=== PATIENT | female | born 1965 | race Caucasian/White ===

== ENCOUNTER 2017-01-15 20:24 | Emergency (ER) | payer MEDICAID ==
[2017-01-15] MEDS ORDERED: Sodium Chloride 0.9% 1,000 ML IV SCH (21:15)
[2017-01-15] MEDS ORDERED: Ondansetron 4 MG/2 ML SDV IVPUSH ONE (21:18)
[2017-01-15] MEDS ORDERED: Morphine 4 MG/ML Syringe IVPUSH ONE ×2 (21:18→22:45)
--- NOTE | 2017-01-15 21:21 | EDM.PDOC ---
ED HPI GENERAL MEDICAL PROBLEM - General Chief Complaint: Abdominal Pain Stated Complaint: PAIN Time Seen by Provider: 01/15/17 21:15 Source of Information: Reports: Patient History Limitations: Reports: No Limitations - History of Present Illness INITIAL COMMENTS - FREE TEXT/NARRATIVE: Zuleyma is a 51-year-old female with a history of a CVA with right-sided hemiparesis and expressive aphasia issues who presents to the emergency department today with complaints of left lower quadrant pain for the last 2 days. Patient denies any associative symptoms, patient denies any known history of diverticulitis or kidney stones. Patient has not taken anything for the pain. Patient denies any dysuria. Patient reports she has had normal bowel movements with no blood in her stool. Duration: Day(s): (2) Left Abdomen Pain Score (Numeric/FACES): 8 - Related Data Allergies Allergy/AdvReac Type Severity Reaction Status Date / Time aspirin Allergy Cannot Verified 01/15/17 21:30 Remember codeine Allergy Cannot Verified 01/15/17 21:30 Remember latex Allergy Cannot Verified 01/15/17 21:30 Remember Home Meds: Home Meds Carvedilol [Coreg] 3.125 mg PO BID 10/13/13 [History] Clopidogrel [Plavix] 75 mg PO DAILY 10/13/13 [History] Levothyroxine [Synthroid] 50 mcg PO ACBRK 10/13/13 [History] Lisinopril 2.5 mg PO DAILY 10/13/13 [History] atorvaSTATin [Lipitor] 20 mg PO BEDTIME 10/13/13 [History] Fexofenadine HCl [Daphnie Allergy] 180 mg PO DAILY 08/25/15 [History] metFORMIN [Glucophage] 500 mg PO BIDMEALS 08/25/15 [History] Past Medical History HEENT History: Reports: Allergic Rhinitis, Impaired Vision Cardiovascular History: Reports: Heart Failure, High Cholesterol, Hypertension, Prior Cardiac Arrest Respiratory History: Reports: Sleep Apnea Gastrointestinal History: Reports: Cholelithiasis 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, , Spontaneous Neurological History: Reports: CVA, Speech Problems Endocrine/Metabolic History: Reports: Diabetes, Type II, Obesity/BMI 30+ Hematologic History: Reports: Blood Transfusion(s) - Infectious Disease History Infectious Disease History: Reports: Chicken Pox, Measles, Mumps, Shingles - Past Surgical History GI Surgical History: Reports: Cholecystectomy, EGD, Hernia, Abdominal, Hernia, Inguinal Female Surgical History: Reports: Breast Biopsy, D&C, Hysterectomy, Oophorectomy Social & Family History - Tobacco Use Smoking Status *Q: Former Smoker Years of Tobacco use: 23 Packs/Tins Daily: 1 Used Tobacco, but Quit: Yes Month Tobacco Last Used: 01/2012 Second Hand Smoke Exposure: No - Caffeine Use Caffeine Use: Reports: Coffee - Alcohol Use Days Per Week of Alcohol Use: 0 - Recreational Drug Use Recreational Drug Use: No ED ROS GENERAL - Review of Systems Review Of Systems: ROS reveals no pertinent complaints other than HPI. ED EXAM, GI/ABD - Physical Exam Exam: See Below Exam Limited By: Language Barrier General Appearance: Alert, WD/WN, No Apparent Distress Respiratory/Chest: No Respiratory Distress, Lungs Clear Cardiovascular: Normal Peripheral Pulses, Regular Rate, Rhythm, No Murmur GI/Abdominal Exam: Normal Bowel Sounds, Soft, Other (Tenderness on exam to left lower quadrant, no guarding, no rebound) Back Exam: Normal Inspection Extremities: Normal Inspection Neurological: Alert, Oriented Psychiatric: Normal Affect, Normal Mood Skin Exam: Warm, Dry, Intact Course - Vital Signs Last Recorded V/S: Last Vital Signs Temp 37.3 C 01/15/17 20:57 Pulse 102 H 01/15/17 22:24 Resp 18 01/15/17 22:24 BP 127/68 01/15/17 22:24 Pulse Ox 94 L 01/15/17 22:24 Zuleyma is a 51-year-old female with a history of CVA with right-sided hemiparesis and expressive aphasia who presents to the emergency Department today with complaints of left lower quadrant pain for the last 2 days. Please refer to history of present illness and focused exam. Differentials include a ureteral stone versus diverticulitis. Peripheral IV was established and patient was given 1 L normal saline, she was given Zofran for nausea and morphine for pain. Blood work was evaluated including a CBC, CMP, lipase, urinalysis. CBC returns unremarkable. CMP within normal limits, elevated glucose of 142. Lipase is normal UA returns with 20-30 WBC and Nitrite consistent with UTI, culture is pending. Patient was given IV zofran and morphine with one liter of NS with improvement in her symptoms. CT scan obtained to evaluate for diverticulitis and is pending. AT this time I will turn patient's care over to Officer pending CT scan results. Patient will be discharged with appropriate antibiotics to include treatment for UTI. - Orders/Labs/Meds Orders: Active Orders 24 hr Category Date Time Status Peripheral IV Care [RC] . DIRECTED Care 01/15/17 21:09 Active Abdomen Pelvis w Cont [CT] Stat Exams 01/15/17 21:24 Taken CULTURE URINE [RM] Stat Lab 01/15/17 21:30 Received Iopamidol [Isovue-300 (61%)] Med 01/15/17 22:00 Active 100 ml IV . DIRECTED Morphine Med 01/15/17 22:45 Once 4 mg IVPUSH ONETIME ONE Sodium Chloride 0.9% [Normal Saline] 1,000 ml Med 01/15/17 21:15 Active IV ASDIRECTED Sodium Chloride 0.9% [Normal Saline] 70 ml Med 01/15/17 22:00 Active IV ASDIRECTED Sodium Chloride 0.9% [Saline Flush] Med 01/15/17 21:09 Active 10 ml FLUSH ASDIRECTED PRN Peripheral IV Insertion Adult [OM.PC] Routine Oth 01/15/17 21:09 Ordered Medication Orders Sodium Chloride (Normal Saline) 1,000 mls @ 999 mls/hr IV ASDIRECTED [facility] Last Admin: 01/15/17 21:38 Dose: 999 mls/hr Sodium Chloride (Normal Saline) 70 mls @ 3 mls/sec IV ASDIRECTED [facility] Last Admin: 01/15/17 22:11 Dose: 3 mls/sec Iopamidol (Isovue-300 (61%)) 100 ml IV . DIRECTED KYE Last Admin: 01/15/17 22:11 Dose: 100 ml Sodium Chloride (Saline Flush) 10 ml FLUSH ASDIRECTED PRN PRN Reason: Keep Vein Open Last Admin: 01/15/17 22:11 Dose: 10 ml Admin: 01/15/17 21:38 Dose: 10 ml Labs: Laboratory Tests 01/15/17 01/15/17 01/15/17 Range/Units 21:14 21:23 21:23 WBC 10.7 (4.5-11.0) K/uL RBC 4.83 (3.30-5.50) M/uL Hgb 13.0 (12.0-15.0) g/dL Hct 39.9 (36.0-48.0) % MCV 83 (80-98) fL MCH 27 (27-31) pg MCHC 33 (32-36) % Plt Count 254 (150-400) K/uL Neut % (Auto) 59 (36-66) % Lymph % (Auto) 31 (24-44) % [place] % (Auto) 7 H (2-6) % Eos % (Auto) 2 (2-4) % Baso % (Auto) 1 (0-1) % Sodium 140 (140-148) mmol/L Potassium 3.8 (3.6-5.2) mmol/L Chloride 106 (100-108) mmol/L Carbon Dioxide 31 (21-32) mmol/L Anion Gap 2.8 L (5.0-14.0) mmol/L BUN 13 (7-18) mg/dL Creatinine 0.9 (0.6-1.0) mg/dL Est Cr Clr Drug Dosing 61.17 mL/min Estimated GFR (MDRD) > 60 (>60) Glucose 142 H (74-106) mg/dL Calcium 9.0 (8.5-10.1) mg/dL Total Bilirubin 0.4 (0.2-1.0) mg/dL AST 22 (15-37) U/L ALT 42 (12-78) U/L Alkaline Phosphatase 113 (46-116) U/L Total Protein 7.7 (6.4-8.2) g/dL Albumin 3.4 (3.4-5.0) g/dL Globulin 4.3 H (2.3-3.5) g/dL Albumin/Globulin Ratio 0.8 L (1.2-2.2) Lipase 328 (73-393) U/L Urine Color Yellow Urine Appearance Slightly cloudy Urine pH 5.0 (4.5-8.0) Ur Specific [place] 1.020 (1.008-1.030) Urine Protein Negative (NEGATIVE) mg/dL Urine Glucose (UA) Normal (NEGATIVE) mg/dL Urine Ketones Negative (NEGATIVE) mg/dL Urine Occult Blood Large (NEGATIVE) Urine Nitrite Positive H (NEGATIVE) Urine Bilirubin Negative (NEGATIVE) Urine Urobilinogen Normal (NORMAL) mg/dL Ur Leukocyte Esterase Negative (NEGATIVE) Urine RBC 0-5 (0-5) Urine WBC 20-30 H (0-5) Ur Epithelial Cells Few Amorphous Sediment Not seen Urine Bacteria Many Urine Mucus Not seen Meds: Medications Generic Name Dose Route Start Last Admin Trade Name Freq PRN Reason Stop Dose Admin Sodium Chloride 1,000 mls @ 999 mls/hr 01/15/17 21:15 01/15/17 21:38 Normal Saline IV 999 mls/hr ASDIRECTED KYE Administration Sodium Chloride 70 mls @ 3 mls/sec 01/15/17 22:00 01/15/17 22:11 Normal Saline IV 3 mls/sec ASDIRECTED KYE Administration Iopamidol 100 ml 01/15/17 22:00 01/15/17 22:11 Isovue-300 (61%) IV 100 ml . DIRECTED KYE Administration Sodium Chloride 10 ml 01/15/17 21:09 01/15/17 22:11 Saline Flush FLUSH 10 ml ASDIRECTED PRN Administration Keep Vein Open Discontinued Medications Generic Name Dose Route Start Last Admin Trade Name Freq PRN Reason Stop Dose Admin Morphine Sulfate 4 mg 01/15/17 21:18 01/15/17 21:42 Morphine IVPUSH 01/15/17 21:19 4 mg ONETIME ONE Administration Ondansetron HCl 4 mg 01/15/17 21:18 01/15/17 21:45 Zofran IVPUSH 01/15/17 21:19 4 mg ONETIME ONE Administration Departure - Departure Time of Disposition: 23:30 Disposition: Still A Patient 30 Condition: Good Clinical Impression: Urinary tract infection Qualifiers: Urinary tract infection type: acute cystitis Hematuria presence: without hematuria Qualified Code(s): N30.00 - Acute cystitis without hematuria - Discharge Information Referrals: Keith Maravilla PA-C [Primary Care Provider] - Forms: ED Department Discharge - My Orders Last 24 Hours: My Active Orders 01/15/17 21:09 Peripheral IV Care [RC] . DIRECTED Sodium Chloride 0.9% [Saline Flush] 10 ml FLUSH ASDIRECTED PRN Peripheral IV Insertion Adult [OM.PC] Routine 01/15/17 21:15 Sodium Chloride 0.9% [Normal Saline] 1,000 ml IV ASDIRECTED 01/15/17 21:24 Abdomen Pelvis w Cont [CT] Stat 01/15/17 21:30 CULTURE URINE [RM] Stat 01/15/17 22:00 Iopamidol [Isovue-300 (61%)] 100 ml IV . DIRECTED Sodium Chloride 0.9% [Normal Saline] 70 ml IV ASDIRECTED 01/15/17 22:45 Morphine 4 mg IVPUSH ONETIME ONE - Assessment/Plan Last 24 Hours: My Active Orders 01/15/17 21:09 Peripheral IV Care [RC] . DIRECTED Sodium Chloride 0.9% [Saline Flush] 10 ml FLUSH ASDIRECTED PRN Peripheral IV Insertion Adult [OM.PC] Routine 01/15/17 21:15 Sodium Chloride 0.9% [Normal Saline] 1,000 ml IV ASDIRECTED 01/15/17 21:24 Abdomen Pelvis w Cont [CT] Stat 01/15/17 21:30 CULTURE URINE [RM] Stat 01/15/17 22:00 Iopamidol [Isovue-300 (61%)] 100 ml IV . DIRECTED Sodium Chloride 0.9% [Normal Saline] 70 ml IV ASDIRECTED 01/15/17 22:45 Morphine 4 mg IVPUSH ONETIME ONE
[2017-01-15] MEDS: Sodium Chloride 0.9% 10 ML Syringe FLUSH PRN ×2 (21:38→22:11)
[2017-01-15] MEDS ORDERED: Iopamidol 612 MG/ML 100 ML Bottle IV SCH (22:00)
[2017-01-15] MEDS ORDERED: Ondansetron 4 MG Tab.DIS PO ONE (23:35)
[2017-01-16 00:23] VITALS: BP 107/73
== END 2017-01-16 00:20 | disposition home or self-care (01) ==
LOC: JP.ED 20:24
DX: N30.00 Acute cystitis without hematuria (principal); K63.89 Other specified diseases of intestine; I11.0 Hypertensive heart disease with heart failure; I50.9 Heart failure, unspecified; E78.00 Pure hypercholesterolemia, unspecified; E11.9 Type 2 diabetes mellitus without complications; I69.351 Hemiplegia and hemiparesis following cerebral infarction affecting right dominant side; I69.320 Aphasia following cerebral infarction; E66.9 Obesity, unspecified; Z68.34 Body mass index [BMI] 34.0-34.9, adult; Z90.49 Acquired absence of other specified parts of digestive tract; Z90.710 Acquired absence of both cervix and uterus; Z90.721 Acquired absence of ovaries, unilateral; Z87.891 Personal history of nicotine dependence; Z79.02 Long term (current) use of antithrombotics/antiplatelets; Z79.899 Other long term (current) drug therapy; Z88.5 Allergy status to narcotic agent; Z88.8 Allergy status to other drugs, medicaments and biological substances; Z91.040 Latex allergy status
CPT/HCPCS: 36415; 74177; 80053; 81001; 83690; 85025; 87086; 96361; 96374; 96375; 96376; 99284; A9270; J2270; J2405; J7030; J7040; J7050; Q9967; 87088; 87186

== ENCOUNTER 2017-06-17 13:22 | Observation (INO) | payer MEDICAID ==
[2017-06-17] MEDS ORDERED: Ondansetron 4 MG Tab.DIS PO ONE (14:06)
--- NOTE | 2017-06-17 14:12 | EDM.PDOC ---
ED HPI GENERAL MEDICAL PROBLEM - General Chief Complaint: Abdominal Pain Stated Complaint: PAIN Time Seen by Provider: 06/17/17 13:55 Source of Information: Reports: Patient, Family, Old Records, RN History Limitations: Reports: Other (hx of CVA, mentally handicapped since) - History of Present Illness INITIAL COMMENTS - FREE TEXT/NARRATIVE: 52 yo female presents with progressive low abdominal pain over the past couple of days. Pain increased with movement or coughing. No fever, mild nausea, no change in stools or urine. PHx of ? appendectomy and cholecystectomy(not a reliable historian). No self fx. Was here a few mos ago for appendagitis. 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) Abdominal Pain Score (Numeric/FACES): 8 - Related Data Allergies Allergy/AdvReac Type Severity Reaction Status Date / Time latex Allergy Cannot Verified 06/17/17 13:42 Remember aspirin AdvReac Mild Stomach Verified 06/18/17 09:49 Upset codeine AdvReac Mild Stomach Verified 06/18/17 10:05 Upset hydromorphone [From Dilaudid] AdvReac Nausea and Verified 06/18/17 10:05 Vomiting Home Meds: Home Meds Carvedilol [Coreg] 3.125 mg PO BID 10/13/13 [History] Clopidogrel [Plavix] 75 mg PO DAILY 10/13/13 [History] Levothyroxine [Synthroid] 50 mcg PO ACBRK 10/13/13 [History] Lisinopril 2.5 mg PO DAILY 10/13/13 [History] atorvaSTATin [Lipitor] 20 mg PO BEDTIME 10/13/13 [History] metFORMIN [Glucophage] 500 mg PO BIDMEALS 08/25/15 [History] Cephalexin 500 mg PO BID #6 capsule 06/19/17 [Rx] Past Medical History HEENT History: Reports: Allergic Rhinitis, Impaired Vision Cardiovascular History: Reports: Heart Failure, High Cholesterol, Hypertension, Prior Cardiac Arrest Respiratory History: Reports: Sleep Apnea Gastrointestinal History: Reports: Cholelithiasis Genitourinary History: Reports: UTI, Recurrent 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, , Spontaneous Neurological History: Reports: CVA, Speech Problems, Other (See Below) Other Neuro History: right side deficit with residual pain Endocrine/Metabolic History: Reports: Diabetes, Type II, Hypothyroidism, Obesity /BMI 30+ Hematologic History: Reports: Blood Transfusion(s) - Infectious Disease History Infectious Disease History: Reports: Chicken Pox - Past Surgical History GI Surgical History: Reports: Cholecystectomy, EGD, Hernia, Abdominal, Hernia, Inguinal Female Surgical History: Reports: Breast Biopsy, D&C, Hysterectomy, Oophorectomy Oncologic Surgical History: Reports: Biopsy of Breast Social & Family History - Tobacco Use Smoking Status *Q: Never Smoker Years of Tobacco use: 23 Packs/Tins Daily: 1 Used Tobacco, but Quit: Yes Month Tobacco Last Used: 01/2012 Second Hand Smoke Exposure: No - Caffeine Use Caffeine Use: Reports: Coffee - Alcohol Use Days Per Week of Alcohol Use: 0 - Recreational Drug Use Recreational Drug Use: No ED ROS GENERAL - Review of Systems Review Of Systems: See Below Constitutional: Reports: No Symptoms HEENT: Reports: No Symptoms Respiratory: Reports: No Symptoms Cardiovascular: Reports: No Symptoms GI/Abdominal: Reports: Abdominal Pain, Nausea. Denies: Anorexia, Black Stool, Bloody Stool, Constipation, Diarrhea, Decreased Appetite, Distension, Flatus, Hematemesis, Hematochezia, Melena, Vomiting : Reports: No Symptoms Musculoskeletal: Reports: No Symptoms Skin: Reports: No Symptoms ED EXAM, GI/ABD - Physical Exam Exam: See Below Exam Limited By: No Limitations General Appearance: Alert, WD/WN, No Apparent Distress Eyes: Bilateral: Normal Appearance Ears: Normal External Exam, Normal Canal, Hearing Grossly Normal Nose: Normal Inspection, Normal Mucosa, No Blood Throat/Mouth: Normal Inspection, Normal Lips, Normal Oropharynx, Normal Voice, No Airway Compromise Head: Atraumatic, Normocephalic Neck: Normal Inspection, Supple Respiratory/Chest: No Respiratory Distress, Lungs Clear, Normal Breath Sounds, No Accessory Muscle Use Cardiovascular: Regular Rate, Rhythm, No Edema GI/Abdominal Exam: Soft, No Distention, Tender (suprapubic region), Abnormal Bowel Sounds (decreased). No: Non-Tender Back Exam: Normal Inspection. No: CVA Tenderness (R), CVA Tenderness (L) Extremities: Normal Inspection, Normal Range of Motion, Non-Tender, No Pedal Edema Neurological: Alert, CN II-XII Intact, Normal Cognition, Memory Loss Remote Events, Sensory/Motor Deficit (from prior CVA, not new) Psychiatric: Normal Affect, Normal Mood Skin Exam: Warm, Dry, Intact, Normal Color, No Rash Course - Vital Signs Text/Narrative:: Cipro 500 mg po, LR IV @ 150 ml/h, Dilaudid 0.5 mg IV with minimal benefit. Last Recorded V/S: Last Vital Signs Temp 36.6 C 06/19/17 11:25 Pulse 78 06/19/17 11:25 Resp 20 06/19/17 11:25 BP 128/72 06/19/17 11:25 Pulse Ox 96 06/19/17 11:25 - Orders/Labs/Meds Labs: Laboratory Tests 06/17/17 06/17/17 06/17/17 Range/Units 14:20 14:20 14:46 WBC 7.5 (4.5-11.0) K/uL RBC 5.07 (3.30-5.50) M/uL Hgb 13.2 (12.0-15.0) g/dL Hct 41.9 (36.0-48.0) % MCV 83 (80-98) fL MCH 26 L (27-31) pg MCHC 32 (32-36) % Plt Count 241 (150-400) K/uL Sodium 141 (140-148) mmol/L Potassium 3.8 (3.6-5.2) mmol/L Chloride 105 (100-108) mmol/L Carbon Dioxide 30 (21-32) mmol/L Anion Gap 6.5 (5.0-14.0) mmol/L BUN 15 (7-18) mg/dL Creatinine 0.8 (0.6-1.0) mg/dL Est Cr Clr Drug Dosing 62.07 mL/min Estimated GFR (MDRD) > 60 (>60) Glucose 164 H (74-106) mg/dL Calcium 9.1 (8.5-10.1) mg/dL C-Reactive Protein 1.05 H (0.0-0.3) mg/dL Urine Color [place] Urine Appearance Cloudy Urine pH 5.0 (4.5-8.0) Ur Specific [place] 1.025 (1.008-1.030) Urine Protein Negative (NEGATIVE) mg/dL Urine Glucose (UA) Normal (NEGATIVE) mg/dL Urine Ketones Negative (NEGATIVE) mg/dL Urine Occult Blood Negative (NEGATIVE) Urine Nitrite Positive H (NEGATIVE) Urine Bilirubin Small (NEGATIVE) Urine Urobilinogen Normal (NORMAL) mg/dL Ur Leukocyte Esterase Negative (NEGATIVE) Urine RBC 0-5 (0-5) Urine WBC 5-10 H (0-5) Ur Epithelial Cells Moderate Amorphous Sediment Few Urine Bacteria Many Urine Mucus Few Meds: Medications Discontinued Medications Generic Name Dose Route Start Last Admin Trade Name Freq PRN Reason Stop Dose Admin Acetaminophen 650 mg 06/17/17 19:34 06/17/17 19:59 Tylenol PO 06/17/17 19:35 650 mg NOW ONE Administration Acetaminophen 650 mg 06/17/17 19:49 06/19/17 12:12 Tylenol PO 650 mg Q4H PRN Administration Pain (Mild 1-3)/fever Atorvastatin Calcium 20 mg 06/17/17 21:00 06/18/17 21:26 Lipitor PO 20 mg BEDTIME KYE Administration Carvedilol 3.125 mg 06/17/17 21:00 06/19/17 07:46 Coreg PO 3.125 mg BIDMEALS KYE Administration Ciprofloxacin 500 mg 06/17/17 18:09 06/17/17 21:08 Ciprofloxacin Hcl PO 06/17/17 18:10 Not Given ONETIME ONE Clopidogrel Bisulfate 75 mg 06/18/17 09:00 06/19/17 10:23 Plavix PO 75 mg DAILY KYE Administration Dextrose 15 gm 06/17/17 19:49 Glutose 15 PO ONETIME PRN Hypoglycemia Dextrose/Water 50 ml 06/17/17 19:49 Dextrose 50% In Water IV ONETIME PRN Hypoglycemia Diphenhydramine HCl 25 mg 06/18/17 09:50 06/18/17 10:12 Benadryl PO 25 mg Q4H PRN Administration itching Enoxaparin Sodium 40 mg 06/17/17 19:49 06/18/17 16:37 Lovenox SUBCUT 40 mg QPM KYE Administration Hydromorphone HCl 0.5 mg 06/17/17 16:29 06/17/17 16:53 Dilaudid IVPUSH 06/17/17 16:30 0.5 mg ONETIME ONE Administration Hydromorphone HCl 0.5 mg 06/17/17 19:08 06/18/17 04:52 Dilaudid IVPUSH 0.5 mg Q2H PRN Administration Pain Lactated Ringer's 1,000 mls @ 150 mls/hr 06/17/17 14:15 06/17/17 14:45 Ringers, Lactated IV 150 mls/hr ASDIRECTED KYE Administration Sodium Chloride 85 mls @ 3.5 mls/sec 06/17/17 16:00 06/17/17 16:13 Normal Saline IV 3.5 mls/sec ASDIRECTED KYE Administration Lactated Ringer's 1,000 mls @ 999 mls/hr 06/17/17 18:45 Ringers, Lactated IV ASDIRECTED KYE Levofloxacin/Dextrose 500 mg/ 100 mls @ 100 mls/hr 06/17/17 18:33 06/17/17 21 :08 Premix IV 06/17/17 19:32 Not Given ONETIME ONE Ceftriaxone Sodium 1 gm/ 50 mls @ 100 mls/hr 06/17/17 20:00 06/18/17 20:17 Sodium Chloride IV 100 mls/hr Q24H KYE Administration Sodium Chloride 1,000 mls @ 125 mls/hr 06/17/17 19:49 06/18/17 04:31 Normal Saline IV 125 mls/hr ASDIRECTED KYE Administration Insulin Aspart 0 unit 06/17/17 20:00 06/19/17 12:12 Novolog SUBCUT [facility] Protocol Iopamidol 135 ml 06/17/17 15:58 06/17/17 16:13 Isovue-300 (61%) IV 06/18/17 15:59 135 ml . DIRECTED PRN Administration RADIOLOGY EXAM Ketorolac Tromethamine 30 mg 06/18/17 09:49 06/18/17 18:10 Toradol IVPUSH 06/23/17 09:49 30 mg Q6H PRN Administration Pain Levothyroxine Sodium 50 mcg 06/18/17 07:30 06/19/17 07:46 Synthroid PO 50 mcg ACBRK KYE Administration Lisinopril 2.5 mg 06/18/17 09:00 06/19/17 10:23 Prinivil PO 2.5 mg DAILY KYE Administration Magnesium Hydroxide 30 ml 06/17/17 19:49 Milk Of Magnesia PO Q12H PRN Constipation Metformin HCl 500 mg 06/18/17 08:00 Glucophage PO BIDMEALS KYE Metformin HCl 500 mg 06/17/17 20:15 06/19/17 07:45 Glucophage PO 500 mg BIDMEALS KYE Administration Metformin HCl Confirm 06/17/17 20:11 06/17/17 20:44 Glucophage Administered 06/17/17 20:12 Not Given Dose 500 mg .ROUTE .STK-MED ONE Ondansetron HCl 4 mg 06/17/17 14:06 06/17/17 14:37 Zofran Odt PO 06/17/17 14:07 4 mg ONETIME ONE Administration Ondansetron HCl 4 mg 06/17/17 19:49 06/18/17 20:36 Zofran IV 4 mg Q4H PRN Administration Nausea/Vomiting Oxycodone HCl 5 mg 06/17/17 19:49 06/18/17 07:45 Oxycodone PO 5 mg Q4H PRN Administration Pain (moderate 4-6) Polyethylene Glycol 17 gm 06/17/17 19:49 Miralax PO DAILY PRN Constipation Senna/Docusate Sodium 1 tab 06/17/17 19:49 06/17/17 20:39 Senna Plus PO 1 tab BID PRN Administration Constipation Sodium Chloride 10 ml 06/17/17 19:49 Saline Flush FLUSH ASDIRECTED PRN Keep Vein Open - Radiology Interpretation Free Text/Narrative:: No pathology noted on CT scan of abd/pelvis with contrast CT Results Date: 06/17/17 CT Results Time: 16:45 Departure - Departure Time of Disposition: 18:10 Disposition: Refer to Observation Condition: Fair Clinical Impression: Lower abdominal pain Urinary tract infection Qualifiers: Urinary tract infection type: acute cystitis Hematuria presence: without hematuria Qualified Code(s): N30.00 - Acute cystitis without hematuria - Discharge Information
[2017-06-17] MEDS ORDERED: Lactated Ringers 1,000 ML IV SCH ×2 (14:15→18:45)
[2017-06-17] MEDS ORDERED: Iopamidol 612 MG/ML 150 ML Bottle IV PRN (15:58)
[2017-06-17] MEDS ORDERED: HYDROmorphone 0.5 MG/0.5 ML Syringe IVPUSH ONE (16:29)
[2017-06-17] MEDS ORDERED: Ciprofloxacin 500 MG Tab PO ONE (18:09)
[2017-06-17] MEDS ORDERED: Levofloxacin/Dextrose 5%-Water 500 MG in Premix Bag 1 BAG IV ONE (18:33)
[2017-06-17] MEDS ORDERED: HYDROmorphone 0.5 MG/0.5 ML Syringe IVPUSH PRN (19:08)
[2017-06-17] MEDS ORDERED: Acetaminophen 325 MG Tab PO ONE (19:34)
[2017-06-17] MEDS ORDERED: Sodium Chloride 0.9% 10 ML Syringe FLUSH PRN (19:49)
[2017-06-17] MEDS ORDERED: Magnesium Hydroxide 400 MG/5 ML Susp 30 ML Cup PO PRN (19:49)
[2017-06-17] MEDS ORDERED: Glucose Gel 15 GM in 37.5 GM Tube PO PRN (19:49)
[2017-06-17] MEDS ORDERED: 50% Dextrose in Water 50 ML Syringe IV PRN (19:49)
[2017-06-17] MEDS ORDERED: Polyethylene Glycol 3350 Powder 17 GM Packet PO PRN (19:49)
--- NOTE | 2017-06-17 19:57 | PCM.HP ---
H&P History of Present Illness - General Date of Service: 06/17/17 Admit Problem/Dx: Admission Diagnosis/Problem Admission Diagnosis/Problem Pyelonephritis Source of Information: Patient, Family, Provider, RN Notes Reviewed History Limitations: Reports: Other (Communication very limited by severe expressive aphasia) - History of Present Illness Initial Comments - Free Text/Narative: Ms. Cota is a 52-year-old woman who is admitted to observation status for further evaluation and management of left pyelonephritis. She has not felt well over the past 3 days with pain in her left flank and left groin. She was brought in today for further evaluation, white blood cell count is normal and CT scan of the abdomen and pelvis was unremarkable. Since she's been in the emergency department has not had significant temperature elevation and has been hemodynamically stable. Urinalysis shows evidence of infection. Abdominal Pain Score (Numeric/FACES): 8 - Related Data Allergies/Adverse Reactions: Allergies Allergy/AdvReac Type Severity Reaction Status Date / Time aspirin Allergy Cannot Verified 06/17/17 13:42 Remember codeine Allergy Cannot Verified 06/17/17 13:42 Remember latex Allergy Cannot Verified 06/17/17 13:42 Remember Home Medications: Home Meds Carvedilol [Coreg] 3.125 mg PO BID 10/13/13 [History] Clopidogrel [Plavix] 75 mg PO DAILY 10/13/13 [History] Levothyroxine [Synthroid] 50 mcg PO ACBRK 10/13/13 [History] Lisinopril 2.5 mg PO DAILY 10/13/13 [History] atorvaSTATin [Lipitor] 20 mg PO BEDTIME 10/13/13 [History] metFORMIN [Glucophage] 500 mg PO BIDMEALS 08/25/15 [History] Ciprofloxacin HCl [Cipro] 250 mg PO Q12H #10 tablet 06/17/17 [Rx] Past Medical History HEENT History: Reports: Allergic Rhinitis, Impaired Vision Cardiovascular History: Reports: Heart Failure, High Cholesterol, Hypertension, Prior Cardiac Arrest Respiratory History: Reports: Sleep Apnea Gastrointestinal History: Reports: Cholelithiasis Genitourinary History: Reports: UTI, Recurrent [employer] History: Reports: Dysfunctional Uterine Bleeding, , Spontaneous Neurological History: Reports: CVA, Speech Problems, Other (See Below) Other Neuro History: right side deficit with residual pain Endocrine/Metabolic History: Reports: Diabetes, Type II, Hypothyroidism, Obesity /BMI 30+ Hematologic History: Reports: Blood Transfusion(s) - Infectious Disease History Infectious Disease History: Reports: Chicken Pox - Past Surgical History GI Surgical History: Reports: Cholecystectomy, EGD, Hernia, Abdominal, Hernia, Inguinal Female Surgical History: Reports: Breast Biopsy, D&C, Hysterectomy, Oophorectomy Oncologic Surgical History: Reports: Biopsy of Breast Social & Family History - Tobacco Use Smoking Status *Q: Never Smoker Years of Tobacco use: 23 Packs/Tins Daily: 1 Used Tobacco, but Quit: Yes Month Tobacco Last Used: 01/2012 Second Hand Smoke Exposure: No - Caffeine Use Caffeine Use: Reports: Coffee - Alcohol Use Days Per Week of Alcohol Use: 0 - Recreational Drug Use Recreational Drug Use: No H&P Review of Systems - Review of Systems: Review Of Systems: Unable To Obtain General: Reports: ROS unobtainable (Severe expressive aphasia) Exam - Exam Exam: See Below - Vital Signs Vital Signs: Last Vital Signs Temp 99.1 F 06/17/17 13:57 Pulse 92 06/17/17 17:08 Resp 20 06/17/17 17:08 BP 110/68 06/17/17 17:08 Pulse Ox 93 L 06/17/17 17:08 Weight: 198 lb - Exam Quality Assessment: DVT Prophylaxis General: Alert, Oriented, Cooperative, Mild Distress HEENT: Conjunctiva Clear, Hearing Intact, Mucosa Moist & [place], Normal Nasal Septum, Posterior Pharynx Clear, Pupils Equal Neck: Supple, Trachea Midline, +2 Carotid Pulse wo Bruit Lungs: Clear to Auscultation, Normal Respiratory Effort Cardiovascular: Regular Rate, Regular Rhythm, Normal S1, Normal S2. No: Systolic Murmur, Diastolic Murmur GI/Abdominal Exam: Soft, No Organomegaly, No Distention, Tender (Left groin and suprapubic area) Back Exam: Normal Inspection, Full Range of Motion, CVA Tenderness (L) Extremities: Non-Tender, No Pedal Edema Skin: Warm, Dry, Intact Neurological: Other (Expressive a fascia) Neuro Extensive - Mental Status: Alert, Oriented x3, Memory Intact - Patient Data Result Diagrams: 06/17/17 14:20 06/17/17 14:20 *Q Meaningful Use (ADM) - VTE *Q VTE Criteria *Q: - VTE Risk Assess *Q Each Risk Factor Represents 1 Point: Age 41 - 59 years, Obesity ( BMI > 25 kg/m2 ) Total Score 1 Point Risk Factors: 2 Each Risk Factor Represents 2 Points: None Total Score 2 Point Risk Factors: 0 Each Risk Factor Represents 3 Points: None Total Score 3 Point Risk Factors: 0 Each Risk Factor Represents 5 Points: None Total Score 5 Point Risk Factors: 0 Venous Thromboembolism Risk Factor Score *Q: 2 - Stroke *Q Stroke Criteria *Q: - AMI *Q AMI Criteria *Q: Problem List Initiated/Reviewed/Updated: Yes Orders Last 24hrs: Active Orders 24 hr Category Date Time Status Patient Status [ADT] Routine ADT 06/17/17 19:49 Active Ambulate [RC] QID Care 06/17/17 19:49 Active Blood Glucose Check, Bedside [RC] QIDACANDBED Care 06/17/17 19:49 Active Communication Order [RC] STAT Care 06/17/17 19:49 Active Diabetes Education [RC] Click to Edit Care 06/17/17 19:49 Active Height and Weight [RC] DAILY Care 06/17/17 19:49 Active Intake and Output [RC] QSHIFT Care 06/17/17 19:49 Active Notify Provider Vital Signs [RC] ASDIRECTED Care 06/17/17 19:49 Active Notify Provider [RC] PRN Care 06/17/17 19:49 Active Oxygen Therapy [RC] PRN Care 06/17/17 19:49 Active Peripheral IV Care [RC] . DIRECTED Care 06/17/17 19:49 Active Up With Assistance [RC] ASDIRECTED Care 06/17/17 19:49 Active Up to Chair [RC] QID Care 06/17/17 19:49 Active VTE/DVT Education [RC] Per Unit Routine Care 06/17/17 19:49 Active Vital Signs [RC] Q4H Care 06/17/17 19:49 Active Consistent Carbohydrate Diet [DIET] Diet 06/17/17 Dinner Active BASIC METABOLIC PANEL,BMP [CHEM] AM Lab 06/18/17 05:11 Ordered CBC WITH AUTO DIFF [HEME] AM Lab 06/18/17 05:11 Ordered GLUCOSE POC LAB TO COLLECT [POC] QIDACANDBED Lab 06/17/17 21:00 Ordered GLUCOSE POC LAB TO COLLECT [POC] QIDACANDBED Lab 06/18/17 07:30 Ordered GLUCOSE POC LAB TO COLLECT [POC] QIDACANDBED Lab 06/18/17 11:30 Ordered GLUCOSE POC LAB TO COLLECT [POC] QIDACANDBED Lab 06/18/17 16:30 Ordered GLUCOSE POC LAB TO COLLECT [POC] QIDACANDBED Lab 06/18/17 21:00 Ordered GLUCOSE POC LAB TO COLLECT [POC] QIDACANDBED Lab 06/19/17 07:30 Ordered GLUCOSE POC LAB TO COLLECT [POC] QIDACANDBED Lab 06/19/17 11:30 Ordered GLUCOSE POC LAB TO COLLECT [POC] QIDACANDBED Lab 06/19/17 16:30 Ordered GLUCOSE POC LAB TO COLLECT [POC] QIDACANDBED Lab 06/19/17 21:00 Ordered GLUCOSE POC LAB TO COLLECT [POC] QIDACANDBED Lab 06/20/17 07:30 Ordered GLUCOSE POC LAB TO COLLECT [POC] QIDACANDBED Lab 06/20/17 11:30 Ordered GLUCOSE POC LAB TO COLLECT [POC] QIDACANDBED Lab 06/20/17 16:30 Ordered Acetaminophen [Tylenol] Med 06/17/17 19:49 Ordered 650 mg PO Q4H PRN Dextrose 50% in Water Med 06/17/17 19:49 Ordered 50 ml IV ONETIME PRN Dextrose [Glutose 15] Med 06/17/17 19:49 Ordered 15 gm PO ONETIME PRN Docusate Sodium/Sennosides [Senna Plus] Med 06/17/17 19:49 Ordered 1 tab PO BID PRN Enoxaparin [Lovenox] Med 06/17/17 19:49 Ordered 40 mg SUBCUT DAILY Insulin Aspart [NovoLOG] Med 06/17/17 20:00 Ordered See Protocol SUBCUT QIDACANDBED Magnesium Hydroxide [Milk of Magnesia] Med 06/17/17 19:49 Ordered 30 ml PO Q12H PRN Ondansetron [Zofran] Med 06/17/17 19:49 Ordered 4 mg IV Q4H PRN Polyethylene Glycol 3350 [MiraLAX] Med 06/17/17 19:49 Ordered 17 gm PO DAILY PRN Sodium Chloride 0.9% [Normal Saline] 1,000 ml Med 06/17/17 19:49 Ordered IV ASDIRECTED Sodium Chloride 0.9% [Saline Flush] Med 06/17/17 19:49 Ordered 10 ml FLUSH ASDIRECTED PRN cefTRIAXone [Rocephin] 1 gm Med 06/17/17 19:49 Ordered Sodium Chloride 0.9% [Normal Saline] 50 ml IV Q24H oxyCODONE Med 06/17/17 19:49 Ordered 5 mg PO Q4H PRN Peripheral IV Insertion Adult [OM.PC] Routine Oth 06/17/17 19:49 Ordered Resuscitation Status Routine Resus Stat 06/17/17 19:11 Ordered Medication Orders Acetaminophen (Tylenol) 650 mg PO Q4H PRN PRN Reason: Pain (Mild 1-3)/fever Atorvastatin Calcium (Lipitor) 20 mg PO BEDTIME [facility] Carvedilol (Coreg) 3.125 mg PO BID KYE Clopidogrel Bisulfate (Plavix) 75 mg PO DAILY [facility] Dextrose (Glutose 15) 15 gm PO ONETIME PRN PRN Reason: Hypoglycemia Dextrose/Water (Dextrose 50% In Water) 50 ml IV ONETIME PRN PRN Reason: Hypoglycemia Enoxaparin Sodium (Lovenox) 40 mg SUBCUT DAILY [facility] Hydromorphone HCl (Dilaudid) 0.5 mg IVPUSH Q2H PRN PRN Reason: Pain Ceftriaxone Sodium 1 gm/ (Sodium Chloride) 50 mls @ 100 mls/hr IV Q24H [facility] Sodium Chloride (Normal Saline) 1,000 mls @ 125 mls/hr IV ASDIRECTED [facility] Insulin Aspart (Novolog) 0 unit SUBCUT QIDACANDBED KYE PRN Reason: Protocol Levothyroxine Sodium (Synthroid) 50 mcg PO ACBRK [facility] Lisinopril (Prinivil) 2.5 mg PO DAILY [facility] Magnesium Hydroxide (Milk Of Magnesia) 30 ml PO Q12H PRN PRN Reason: Constipation Metformin HCl (Glucophage) 500 mg PO BIDMEALS [facility] Ondansetron HCl (Zofran) 4 mg IV Q4H PRN PRN Reason: Nausea/Vomiting Oxycodone HCl (Oxycodone) 5 mg PO Q4H PRN PRN Reason: Pain (moderate 4-6) Polyethylene Glycol (Miralax) 17 gm PO DAILY PRN PRN Reason: Constipation Senna/Docusate Sodium (Senna Plus) 1 tab PO BID PRN PRN Reason: Constipation Sodium Chloride (Saline Flush) 10 ml FLUSH ASDIRECTED PRN PRN Reason: Keep Vein Open Assessment/Plan Comment:: ASSESSMENT AND PLAN LEFT PYELONEPHRITIS-symptoms present for 3 days including flank and groin pain. CT scan of the abdomen and pelvis was unremarkable, urinalysis shows evidence of infection. -IV fluids for hydration -Pain medication as needed -Urine culture pending -Rocephin 1 g IV every 24 hours PREVIOUS CVA-significant residual expressive a fascia as well as more mild unilateral weakness -Continue outpatient medical regimen TYPE 2 DIABETES MELLITUS -Continue outpatient therapy with metformin -4 times a day glucometers -Low-dose sliding scale NovoLog MAINTENANCE ISSUES -DVT prophylaxis; Lovenox 40 mg subcutaneous daily -GI prophylaxis; not indicated -Armenta catheter; not required -Nutrition; consistent carb diet -Nicotinic dependence; not required CODE STATUS-FULL CODE ADMISSION STATUS-this patient will be admitted to observation status, expect no more than a one night hospital stay for evaluation and management of problems as outlined above. DISPOSITION-anticipate discharge to home after the hospital stay. PRIMARY CARE PROVIDER-
[2017-06-17] MEDS: Sodium Chloride 0.9% 1,000 ML IV SCH (20:02)
[2017-06-17] MEDS ORDERED: metFORMIN 500 MG Tab ONE (20:11)
[2017-06-17] MEDS: Carvedilol 3.125 MG Tab PO SCH (20:40)
[2017-06-17] MEDS: Insulin Aspart 100 Units/ML 3 ML Pen SUBCUT SCH (20:41)
[2017-06-17] MEDS: atorvaSTATin 20 MG Tab PO SCH (20:41)
[2017-06-17] MEDS: cefTRIAXone 1 GM in Sodium Chloride 0.9% 50 ML IV SCH (20:42)
[2017-06-17] MEDS: metFORMIN 500 MG Tab PO SCH (20:44)
[2017-06-17] MEDS: Enoxaparin 40 MG/0.4 ML Syringe SUBCUT SCH (20:51)
[2017-06-17] MEDS: oxyCODONE 5 MG Tab PO PRN (22:08)
[2017-06-18] MEDS: oxyCODONE 5 MG Tab PO PRN ×2 (02:37→07:45)
[2017-06-18] MEDS: Sodium Chloride 0.9% 1,000 ML IV SCH (04:31)
[2017-06-18] MEDS: Ondansetron 4 MG/2 ML SDV IV PRN ×2 (05:40→20:36)
[2017-06-18] MEDS: Insulin Aspart 100 Units/ML 3 ML Pen SUBCUT SCH ×4 (07:31→21:26)
[2017-06-18] MEDS ORDERED: metFORMIN 500 MG Tab PO SCH (08:00)
[2017-06-18] MEDS: metFORMIN 500 MG Tab PO SCH ×2 (08:45→16:37)
[2017-06-18] MEDS: Levothyroxine 50 MCG Tab PO SCH (08:45)
[2017-06-18] MEDS: Clopidogrel 75 MG Tab PO SCH (08:45)
[2017-06-18] MEDS: Carvedilol 3.125 MG Tab PO SCH ×2 (08:45→16:36)
[2017-06-18] MEDS: Lisinopril 2.5 MG Tab PO SCH (08:46)
[2017-06-18] MEDS ORDERED: diphenhydrAMINE 25 MG Cap PO PRN (09:50)
--- NOTE | 2017-06-18 09:53 | PCM.PN ---
- General Info Date of Service: 06/18/17 Functional Status: Reports: Pain Controlled, Tolerating Diet - Review of Systems General: Denies: Fever Gastrointestinal: Reports: Abdominal Pain, Nausea Systems Review Comment:: No acute events overnight. No fevers. Urine culture is growing a gram-negative mallory. She had an episode of vomiting after receiving hydromorphone this morning. She has diffuse itching. Her pelvic and lower back pain are both the same as yesterday. - Patient Data Vitals - Most Recent: Last Vital Signs Temp 36.6 C 06/18/17 07:58 Pulse 74 06/18/17 08:45 Resp 28 H 06/18/17 07:58 BP 115/57 L 06/18/17 08:46 Pulse Ox 95 06/18/17 07:58 Weight - Most Recent: 89.902 kg I&O - Last 24 Hours: Intake & Output 06/17/17 06/18/17 06/18/17 22:59 06:59 14:59 Intake Total 290 1045 Output Total 50 700 525 Balance 240 345 -525 Lab Results Last 24 Hours: Laboratory Results - last 24 hr 06/18/17 06/18/17 Range/Units 05:58 05:58 WBC 6.9 (4.5-11.0) K/uL RBC 4.64 (3.30-5.50) M/uL Hgb 11.9 L (12.0-15.0) g/dL Hct 38.9 (36.0-48.0) % MCV 84 (80-98) fL MCH 26 L (27-31) pg MCHC 31 L (32-36) % Plt Count 227 (150-400) K/uL Neut % (Auto) 54 (36-66) % Lymph % (Auto) 36 (24-44) % [place] % (Auto) 6 (2-6) % Eos % (Auto) 3 (2-4) % Baso % (Auto) 0 (0-1) % Sodium 142 (140-148) mmol/L Potassium 4.2 (3.6-5.2) mmol/L Chloride 107 (100-108) mmol/L Carbon Dioxide 28 (21-32) mmol/L Anion Gap 6.7 (5.0-14.0) mmol/L BUN 12 (7-18) mg/dL Creatinine 0.8 (0.6-1.0) mg/dL Est Cr Clr Drug Dosing 62.07 mL/min Estimated GFR (MDRD) > 60 (>60) Glucose 136 H (74-106) mg/dL Calcium 8.5 (8.5-10.1) mg/dL Med Orders - Current: Current Medications Acetaminophen (Tylenol) 650 mg PO Q4H PRN PRN Reason: Pain (Mild 1-3)/fever Atorvastatin Calcium (Lipitor) 20 mg PO BEDTIME [facility] Last Admin: 06/17/17 20:41 Dose: 20 mg Carvedilol (Coreg) 3.125 mg PO BIDMEALS [facility] Last Admin: 06/18/17 08:45 Dose: 3.125 mg Clopidogrel Bisulfate (Plavix) 75 mg PO DAILY [facility] Last Admin: 06/18/17 08:45 Dose: 75 mg Dextrose (Glutose 15) 15 gm PO ONETIME PRN PRN Reason: Hypoglycemia Dextrose/Water (Dextrose 50% In Water) 50 ml IV ONETIME PRN PRN Reason: Hypoglycemia Enoxaparin Sodium (Lovenox) 40 mg SUBCUT QPM [facility] Last Admin: 06/17/17 20:51 Dose: 40 mg Ceftriaxone Sodium 1 gm/ (Sodium Chloride) 50 mls @ 100 mls/hr IV Q24H [facility] Last Admin: 06/17/17 20:42 Dose: 100 mls/hr Insulin Aspart (Novolog) 0 unit SUBCUT QIDACANDBED [facility] PRN Reason: Protocol Last Admin: 06/18/17 07:31 Dose: Not Given Levothyroxine Sodium (Synthroid) 50 mcg PO ACBRK [facility] Last Admin: 06/18/17 08:45 Dose: 50 mcg Lisinopril (Prinivil) 2.5 mg PO DAILY [facility] Last Admin: 06/18/17 08:46 Dose: 2.5 mg Magnesium Hydroxide (Milk Of Magnesia) 30 ml PO Q12H PRN PRN Reason: Constipation Metformin HCl (Glucophage) 500 mg PO BIDMEALS [facility] Last Admin: 06/18/17 08:45 Dose: 500 mg Ondansetron HCl (Zofran) 4 mg IV Q4H PRN PRN Reason: Nausea/Vomiting Last Admin: 06/18/17 05:40 Dose: 4 mg Oxycodone HCl (Oxycodone) 5 mg PO Q4H PRN PRN Reason: Pain (moderate 4-6) Last Admin: 06/18/17 07:45 Dose: 5 mg Polyethylene Glycol (Miralax) 17 gm PO DAILY PRN PRN Reason: Constipation Senna/Docusate Sodium (Senna Plus) 1 tab PO BID PRN PRN Reason: Constipation Last Admin: 06/17/17 20:39 Dose: 1 tab Sodium Chloride (Saline Flush) 10 ml FLUSH ASDIRECTED PRN PRN Reason: Keep Vein Open Discontinued Medications Acetaminophen (Tylenol) 650 mg PO NOW ONE Stop: 06/17/17 19:35 Last Admin: 06/17/17 19:59 Dose: 650 mg Ciprofloxacin (Ciprofloxacin Hcl) 500 mg PO ONETIME ONE Stop: 06/17/17 18:10 Last Admin: 06/17/17 21:08 Dose: Not Given Hydromorphone HCl (Dilaudid) 0.5 mg IVPUSH ONETIME ONE Stop: 06/17/17 16:30 Last Admin: 06/17/17 16:53 Dose: 0.5 mg Hydromorphone HCl (Dilaudid) 0.5 mg IVPUSH Q2H PRN PRN Reason: Pain Last Admin: 06/18/17 04:52 Dose: 0.5 mg Lactated Ringer's (Ringers, Lactated) 1,000 mls @ 150 mls/hr IV ASDIRECTED [facility] Last Admin: 06/17/17 14:45 Dose: 150 mls/hr Sodium Chloride (Normal Saline) 85 mls @ 3.5 mls/sec IV ASDIRECTED [facility] Last Admin: 06/17/17 16:13 Dose: 3.5 mls/sec Lactated Ringer's (Ringers, Lactated) 1,000 mls @ 999 mls/hr IV ASDIRECTED [facility] Levofloxacin/Dextrose 500 mg/ (Premix) 100 mls @ 100 mls/hr IV ONETIME ONE Stop: 06/17/17 19:32 Last Admin: 06/17/17 21:08 Dose: Not Given Sodium Chloride (Normal Saline) 1,000 mls @ 125 mls/hr IV ASDIRECTED [facility] Last Admin: 06/18/17 04:31 Dose: 125 mls/hr Iopamidol (Isovue-300 (61%)) 135 ml IV . DIRECTED PRN PRN Reason: RADIOLOGY EXAM Stop: 06/18/17 15:59 Last Admin: 06/17/17 16:13 Dose: 135 ml Metformin HCl (Glucophage) 500 mg PO BIDMEALS KYE Metformin HCl (Glucophage) Confirm Administered Dose 500 mg .ROUTE .STK-MED ONE Stop: 06/17/17 20:12 Last Admin: 06/17/17 20:44 Dose: Not Given Ondansetron HCl (Zofran Odt) 4 mg PO ONETIME ONE Stop: 06/17/17 14:07 Last Admin: 06/17/17 14:37 Dose: 4 mg - Exam Quality Assessment: No: Supplemental Oxygen General: Alert, Oriented, Cooperative, No Acute Distress Neck: Supple Lungs: Normal Respiratory Effort GI/Abdominal Exam: Soft, No Distention, Tender (suprapubic ) Back Exam: Muscle Spasm (left lower back) Extremities: No Pedal Edema Neurological: No: Normal Speech (chronic dysarthria ) - Problem List Review Problem List Initiated/Reviewed/Updated: Yes - My Orders Last 24 Hours: My Active Orders 06/18/17 09:49 Ketorolac [Toradol] 30 mg IVPUSH Q6H PRN 06/18/17 09:50 diphenhydrAMINE [Benadryl] 25 mg PO Q4H PRN Convert IV to Saline Lock [OM.PC] Routine 06/18/17 09:51 Cooling Warming Measures [RC] ASDIRECTED Heat Therapy [OM.PC] Routine - Plan Plan:: ASSESSMENT AND PLAN Acute cystitis - initially some concern for pyelonephritis but CT did not confirm this and pain is more lower back and muscular rather than flank has initially thought. Urine culture growing a gram-negative mallory. -Saline lock IV -Pain medication as needed, add trial of Toradol to see if we can improve her pain control -Urine culture pending -Ceftriaxone 1 g IV every 24 hours PREVIOUS CVA - significant residual expressive aphasia and some residual weakness. -Continue outpatient medical regimen TYPE 2 DIABETES MELLITUS - sugars acceptable so far. -Continue outpatient therapy with metformin -4 times a day glucometers -Low-dose sliding scale NovoLog MAINTENANCE ISSUES -DVT prophylaxis; Lovenox 40 mg subcutaneous daily -GI prophylaxis; not indicated -Armenta catheter; not required -Nutrition; consistent carb diet ADMISSION STATUS - this patient will be admitted to observation status, expect no more than a one night hospital stay for evaluation and management of problems as outlined above. DISPOSITION - anticipate discharge to home tomorrow if pain is under better control throughout the day today Oumar Brand M.D.
[2017-06-18] MEDS: Ketorolac 30 MG/ML SDV IVPUSH PRN ×2 (10:52→18:10)
[2017-06-18] MEDS: Acetaminophen 325 MG Tab PO PRN ×2 (14:32→21:25)
[2017-06-18] MEDS: Enoxaparin 40 MG/0.4 ML Syringe SUBCUT SCH (16:37)
[2017-06-18] MEDS: cefTRIAXone 1 GM in Sodium Chloride 0.9% 50 ML IV SCH (20:17)
[2017-06-18] MEDS: atorvaSTATin 20 MG Tab PO SCH (21:26)
[2017-06-19] MEDS: Insulin Aspart 100 Units/ML 3 ML Pen SUBCUT SCH ×2 (07:44→12:12)
[2017-06-19] MEDS: Acetaminophen 325 MG Tab PO PRN ×2 (07:44→12:12)
[2017-06-19] MEDS: metFORMIN 500 MG Tab PO SCH (07:45)
[2017-06-19] MEDS: Carvedilol 3.125 MG Tab PO SCH (07:46)
[2017-06-19] MEDS: Levothyroxine 50 MCG Tab PO SCH (07:46)
[2017-06-19] MEDS: Lisinopril 2.5 MG Tab PO SCH (10:23)
[2017-06-19] MEDS: Clopidogrel 75 MG Tab PO SCH (10:23)
[2017-06-19 11:48] VITALS: BP 128/72
--- NOTE | 2017-06-19 12:36 | PCM.DCSUM1 ---
Discharge Summary - Hospital Course Brief History: 52-year-old female with history of diabetes, previous history of cerebrovascular accident with ongoing dysarthria who presented with lower abdominal pain and was admitted for management of acute cystitis with significant abdominal and back pain. - Discharge Data Discharge Date: 06/19/17 Discharge Disposition: Home, Self-Care 01 Condition: Good - Discharge Diagnosis/Problem(s) (1) Acute cystitis with positive culture SNOMED Code(s): 551268133 ICD Code: N30.00 - ACUTE CYSTITIS WITHOUT HEMATURIA Status: Acute (2) Diabetes mellitus type II, controlled SNOMED Code(s): 79845654 ICD Code: E11.9 - TYPE 2 DIABETES MELLITUS WITHOUT COMPLICATIONS Status: Chronic Qualifiers: Diabetes mellitus complication status: without complication Diabetes mellitus intermediate teacher insulin use: without fdc use Qualified Code(s): E11.9 - Type 2 diabetes mellitus without complications (3) Hx of cerebral infarction SNOMED Code(s): 023291838 ICD Code: Z86.73 - PRSNL HX OF TIA (TIA), AND CEREB INFRC W/O RESID DEFICITS Status: Chronic (4) Obesity (BMI 30-39.9) SNOMED Code(s): 483402912 ICD Code: E66.9 - OBESITY, UNSPECIFIED Status: Chronic - Patient Summary/Data Hospital Course: Zuleyma presented to the emergency room with lower abdominal pain as well as lower back pain. Workup in the emergency room was suggestive of acute cystitis but there was some concern for pyelonephritis given slightly flank location of her back pain. A CT scan of the abdomen and pelvis did not show evidence for pyelonephritis. Given her significant pain difficulties she was admitted to the hospital for observation and pain management. There were no major difficulties overnight following admission but she did have ongoing pain. She was not having fevers. The morning after admission her culture is growing gram-negative rods and she is tolerating her ceftriaxone. We elected to utilize an anti- inflammatory approach for her pain control because she was having side effects from the narcotics and minimal benefit in her pain. After a couple of doses of Toradol we have had significant improvement in her pain. Pain has not completely resolved but is much better. There seems to be a muscular component to her lower back pain as well. She has no significant lower abdominal pain the morning of discharge. Hemodynamically she has been stable and her pain is well- controlled utilizing anti-inflammatory medications and acetaminophen. On the day of discharge her urine culture did return with an Escherichia coli which was nearly pansensitive. I believe she is safe for outpatient management at this time and will be discharged on a 3 day course of cephalexin. Pain control at home will be with ibuprofen and acetaminophen. She should follow-up if her symptoms do not continue to get better or if they get worse. - Patient Instructions Diet: Diabetic Diet Activity: As Tolerated Showering/Bathing: May Shower Notify Provider of: Fever, Increased Pain, Nausea and/or Vomiting Other/Special Instructions: 1. You were in the hospital for management of lower abdominal and lower back pain caused by an infection in your bladder. These pains have been improving using a combination of acetaminophen and ibuprofen as well as treating the bladder infection. I recommend the following medications at the time of discharge: -Cephalexin (Keflex) 500 mg twice daily for 6 more doses. Your first dose is due tonight. -ibuprofen 600 mg every 6 hours as needed for pain, this is an anti-inflammatory medication that will work well to treat the abdominal pain from the infection. -Acetaminophen 650 mg every 6 hours as needed for pain, this is a pain medication that can be used if you have pain in between doses of ibuprofen. 2. Continue your usual home medications as previously prescribed. Because you are only on metformin and not on insulin or pills the lower your blood sugar below normal I don't believe that you need to use a glucometer at this time. Checking your hemoglobin A1c every 3-6 months should be satisfactory to monitor your diabetes management. 3. Seek medical attention if you develop fever greater than 101, have significant worsening of your abdominal pain or if you develop persistent vomiting or diarrhea. - Discharge Plan Prescriptions/Med Rec: Cephalexin 500 mg PO BID #6 capsule Home Medications: Home Meds Carvedilol [Coreg] 3.125 mg PO BID 10/13/13 [History] Clopidogrel [Plavix] 75 mg PO DAILY 10/13/13 [History] Levothyroxine [Synthroid] 50 mcg PO ACBRK 10/13/13 [History] Lisinopril 2.5 mg PO DAILY 10/13/13 [History] atorvaSTATin [Lipitor] 20 mg PO BEDTIME 10/13/13 [History] metFORMIN [Glucophage] 500 mg PO BIDMEALS 08/25/15 [History] Cephalexin 500 mg PO BID #6 capsule 06/19/17 [Rx] Patient Handouts: Urinary Tract Infection, Adult, [id number], Cephalexin tablets or capsules Referrals: PCP,None [Primary Care Provider] - (follow-up with your primary care if symptoms do not continue to get better or if they get worse) - Discharge Summary/Plan Comment DC Time >30 min.: No (25) - Patient Data Vitals - Most Recent: Last Vital Signs Temp 36.6 C 06/19/17 11:25 Pulse 78 06/19/17 11:25 Resp 20 06/19/17 11:25 BP 128/72 06/19/17 11:25 Pulse Ox 96 06/19/17 11:25 Weight - Most Recent: 89.811 kg I&O - Last 24 hours: Intake & Output 06/18/17 06/19/17 06/19/17 22:59 06:59 14:59 Intake Total 1180 350 480 Output Total 1600 900 550 Balance -420 -550 -70 Med Orders - Current: Current Medications Acetaminophen (Tylenol) 650 mg PO Q4H PRN PRN Reason: Pain (Mild 1-3)/fever Last Admin: 06/19/17 12:12 Dose: 650 mg Atorvastatin Calcium (Lipitor) 20 mg PO BEDTIME [facility] Last Admin: 06/18/17 21:26 Dose: 20 mg Carvedilol (Coreg) 3.125 mg PO BIDMEALS [facility] Last Admin: 06/19/17 07:46 Dose: 3.125 mg Clopidogrel Bisulfate (Plavix) 75 mg PO DAILY [facility] Last Admin: 06/19/17 10:23 Dose: 75 mg Dextrose (Glutose 15) 15 gm PO ONETIME PRN PRN Reason: Hypoglycemia Dextrose/Water (Dextrose 50% In Water) 50 ml IV ONETIME PRN PRN Reason: Hypoglycemia Diphenhydramine HCl (Benadryl) 25 mg PO Q4H PRN PRN Reason: itching Last Admin: 06/18/17 10:12 Dose: 25 mg Enoxaparin Sodium (Lovenox) 40 mg SUBCUT QPM [facility] Last Admin: 06/18/17 16:37 Dose: 40 mg Ceftriaxone Sodium 1 gm/ (Sodium Chloride) 50 mls @ 100 mls/hr IV Q24H [facility] Last Admin: 06/18/17 20:17 Dose: 100 mls/hr Insulin Aspart (Novolog) 0 unit SUBCUT QIDACANDBED [facility] PRN Reason: Protocol Last Admin: 06/19/17 12:12 Dose: Not Given Ketorolac Tromethamine (Toradol) 30 mg IVPUSH Q6H PRN PRN Reason: Pain Stop: 06/23/17 09:49 Last Admin: 06/18/17 18:10 Dose: 30 mg Levothyroxine Sodium (Synthroid) 50 mcg PO ACBRK [facility] Last Admin: 06/19/17 07:46 Dose: 50 mcg Lisinopril (Prinivil) 2.5 mg PO DAILY [facility] Last Admin: 06/19/17 10:23 Dose: 2.5 mg Magnesium Hydroxide (Milk Of Magnesia) 30 ml PO Q12H PRN PRN Reason: Constipation Metformin HCl (Glucophage) 500 mg PO BIDMEALS [facility] Last Admin: 06/19/17 07:45 Dose: 500 mg Ondansetron HCl (Zofran) 4 mg IV Q4H PRN PRN Reason: Nausea/Vomiting Last Admin: 06/18/17 20:36 Dose: 4 mg Oxycodone HCl (Oxycodone) 5 mg PO Q4H PRN PRN Reason: Pain (moderate 4-6) Last Admin: 06/18/17 07:45 Dose: 5 mg Polyethylene Glycol (Miralax) 17 gm PO DAILY PRN PRN Reason: Constipation Senna/Docusate Sodium (Senna Plus) 1 tab PO BID PRN PRN Reason: Constipation Last Admin: 06/17/17 20:39 Dose: 1 tab Sodium Chloride (Saline Flush) 10 ml FLUSH ASDIRECTED PRN PRN Reason: Keep Vein Open Discontinued Medications Acetaminophen (Tylenol) 650 mg PO NOW ONE Stop: 06/17/17 19:35 Last Admin: 06/17/17 19:59 Dose: 650 mg Ciprofloxacin (Ciprofloxacin Hcl) 500 mg PO ONETIME ONE Stop: 06/17/17 18:10 Last Admin: 06/17/17 21:08 Dose: Not Given Hydromorphone HCl (Dilaudid) 0.5 mg IVPUSH ONETIME ONE Stop: 06/17/17 16:30 Last Admin: 06/17/17 16:53 Dose: 0.5 mg Hydromorphone HCl (Dilaudid) 0.5 mg IVPUSH Q2H PRN PRN Reason: Pain Last Admin: 06/18/17 04:52 Dose: 0.5 mg Lactated Ringer's (Ringers, Lactated) 1,000 mls @ 150 mls/hr IV ASDIRECTED [facility] Last Admin: 06/17/17 14:45 Dose: 150 mls/hr Sodium Chloride (Normal Saline) 85 mls @ 3.5 mls/sec IV ASDIRECTED [facility] Last Admin: 06/17/17 16:13 Dose: 3.5 mls/sec Lactated Ringer's (Ringers, Lactated) 1,000 mls @ 999 mls/hr IV ASDIRECTED [facility] Levofloxacin/Dextrose 500 mg/ (Premix) 100 mls @ 100 mls/hr IV ONETIME ONE Stop: 06/17/17 19:32 Last Admin: 06/17/17 21:08 Dose: Not Given Sodium Chloride (Normal Saline) 1,000 mls @ 125 mls/hr IV ASDIRECTED [facility] Last Admin: 06/18/17 04:31 Dose: 125 mls/hr Iopamidol (Isovue-300 (61%)) 135 ml IV . DIRECTED PRN PRN Reason: RADIOLOGY EXAM Stop: 06/18/17 15:59 Last Admin: 06/17/17 16:13 Dose: 135 ml Metformin HCl (Glucophage) 500 mg PO BIDMEALS [facility] Metformin HCl (Glucophage) Confirm Administered Dose 500 mg .ROUTE .STK-MED ONE Stop: 06/17/17 20:12 Last Admin: 06/17/17 20:44 Dose: Not Given Ondansetron HCl (Zofran Odt) 4 mg PO ONETIME ONE Stop: 06/17/17 14:07 Last Admin: 06/17/17 14:37 Dose: 4 mg - Exam Quality Assessment: Denies: Supplemental Oxygen General: Reports: Alert, Oriented, Cooperative, No Acute Distress Lungs: Reports: Normal Respiratory Effort Neurological: Reports: No New Focal Deficit *Q Meaningful Use (DIS) - VTE *Q VTE Criteria *Q: - Stroke *Q Stroke Criteria *Q: - AMI *Q AMI Criteria *Q:
== END 2017-06-19 13:55 | disposition home or self-care (01) ==
LOC: JP.ED 13:22 → JP.MS 19:09
PROVIDERS: ADMIT Hospitalist; ATTEND Internal Medicine
DX: N30.00 Acute cystitis without hematuria (principal); E11.9 Type 2 diabetes mellitus without complications; E66.9 Obesity, unspecified; I50.9 Heart failure, unspecified; E78.00 Pure hypercholesterolemia, unspecified; I11.0 Hypertensive heart disease with heart failure; G47.30 Sleep apnea, unspecified; E03.9 Hypothyroidism, unspecified; I69.320 Aphasia following cerebral infarction; I69.351 Hemiplegia and hemiparesis following cerebral infarction affecting right dominant side; Z79.899 Other long term (current) drug therapy; Z79.02 Long term (current) use of antithrombotics/antiplatelets; Z79.84 Long term (current) use of oral hypoglycemic drugs; Z88.6 Allergy status to analgesic agent; Z88.5 Allergy status to narcotic agent; Z91.040 Latex allergy status; Z68.30 Body mass index [BMI] 30.0-30.9, adult; Z90.710 Acquired absence of both cervix and uterus; Z90.722 Acquired absence of ovaries, bilateral
CPT/HCPCS: 36415; 74177; 80048; 81001; 82962; 85025; 85027; 86140; 87086; 87088; 87186; 96361; 96365; 96372; 96375; 96376; 99285; A9270; G0378; J0696; J1170; J1650; J1885; J2405; J7030; J7040; J7050; J7120; 96374

== ENCOUNTER 2017-06-22 16:35 | Emergency (ER) | payer MEDICAID ==
[2017-06-22 17:38] VITALS: BP 136/76
--- NOTE | 2017-06-22 18:57 | EDM.PDOC ---
ED HPI GENERAL MEDICAL PROBLEM - General Chief Complaint: Skin Complaint Stated Complaint: YEAST INFECTION Time Seen by Provider: 06/22/17 18:52 Source of Information: Reports: Patient History Limitations: Reports: No Limitations - History of Present Illness INITIAL COMMENTS - FREE TEXT/NARRATIVE: pt arrived with a history of vag itching and irritation . in the vaginia. She has just gotten done with a course of ceflexin. Onset: Gradual Duration: Hour(s): Location: Reports: Other ( Itching and irritation in the vag area. ) Associated Symptoms: Reports: No Other Symptoms Vaginal Pain Score (Numeric/FACES): 8 - Related Data Allergies Allergy/AdvReac Type Severity Reaction Status Date / Time latex Allergy Cannot Verified 06/22/17 18:14 Remember aspirin AdvReac Mild Stomach Verified 06/22/17 18:14 Upset codeine AdvReac Mild Stomach Verified 06/22/17 18:14 Upset hydromorphone [From Dilaudid] AdvReac Nausea and Verified 06/22/17 18:14 Vomiting Home Meds: Home Meds Carvedilol [Coreg] 3.125 mg PO BID 10/13/13 [History] Clopidogrel [Plavix] 75 mg PO DAILY 10/13/13 [History] Levothyroxine [Synthroid] 50 mcg PO ACBRK 10/13/13 [History] Lisinopril 2.5 mg PO DAILY 10/13/13 [History] atorvaSTATin [Lipitor] 20 mg PO BEDTIME 10/13/13 [History] metFORMIN [Glucophage] 500 mg PO BIDMEALS 08/25/15 [History] Cephalexin 500 mg PO BID #6 capsule 06/19/17 [Rx] Past Medical History HEENT History: Reports: Allergic Rhinitis, Impaired Vision Cardiovascular History: Reports: Heart Failure, High Cholesterol, Hypertension, Prior Cardiac Arrest Respiratory History: Reports: Sleep Apnea Gastrointestinal History: Reports: Cholelithiasis Genitourinary History: Reports: UTI, 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: 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: Dysfunctional Uterine Bleeding, , Spontaneous Neurological History: Reports: CVA, Speech Problems, Other (See Below) Other Neuro History: right side deficit with residual pain Endocrine/Metabolic History: Reports: Diabetes, Type II, Hypothyroidism, Obesity /BMI 30+ Hematologic History: Reports: Blood Transfusion(s) - Infectious Disease History Infectious Disease History: Reports: Chicken Pox - Past Surgical History GI Surgical History: Reports: Cholecystectomy, EGD, Hernia, Abdominal, Hernia, Inguinal Female Surgical History: Reports: Breast Biopsy, D&C, Hysterectomy, Oophorectomy Oncologic Surgical History: Reports: Biopsy of Breast Social & Family History - Tobacco Use Smoking Status *Q: Former Smoker Years of Tobacco use: 23 Packs/Tins Daily: 1 Used Tobacco, but Quit: Yes Month Tobacco Last Used: 01/2012 Second Hand Smoke Exposure: No - Caffeine Use Caffeine Use: Reports: Coffee - Alcohol Use Days Per Week of Alcohol Use: 0 - Recreational Drug Use Recreational Drug Use: No ED ROS GENERAL - Review of Systems Review Of Systems: See Below Constitutional: Reports: No Symptoms HEENT: Reports: No Symptoms Respiratory: Reports: No Symptoms Cardiovascular: Reports: No Symptoms Endocrine: Reports: No Symptoms GI/Abdominal: Reports: No Symptoms : Reports: No Symptoms Musculoskeletal: Reports: No Symptoms Skin: Reports: No Symptoms Neurological: Reports: No Symptoms Psychiatric: Reports: No Symptoms ED EXAM, SKIN/RASH Exam: See Below Text/Narrative:: pt has vag irritation after finishing her antibiotic. Exam Limited By: No Limitations General Appearance: Alert, Mild Distress Ears: Normal TMs Nose: Normal Inspection Throat/Mouth: Normal Inspection Head: Atraumatic Neck: Normal Inspection Respiratory/Chest: No Respiratory Distress Cardiovascular: Regular Rate, Rhythm GI/Abdominal: Soft, Non-Tender (Female) Exam: Deferred, Other ( Pelvic exam showed that he has alot of irritation at the entrance of the vag. She has slight swelling. This is a obvious yeast infection) Rectal (Female) Exam: Deferred Back Exam: Normal Inspection Extremities: Normal Inspection Neurological: Alert, Oriented, Normal Cognition Psychiatric: Normal Affect Course - Vital Signs Last Recorded V/S: Last Vital Signs Temp 37.2 C 06/22/17 18:11 Pulse 87 06/22/17 18:11 Resp 16 06/22/17 18:11 BP 136/76 06/22/17 18:11 Pulse Ox 97 06/22/17 18:11 - Orders/Labs/Meds Labs: Laboratory Tests 06/22/17 Range/Units 18:57 Urine Color Yellow Urine Appearance Clear Urine pH 5.0 (4.5-8.0) Ur Specific [place] 1.020 (1.008-1.030) Urine Protein Negative (NEGATIVE) mg/dL Urine Glucose (UA) Normal (NEGATIVE) mg/dL Urine Ketones Negative (NEGATIVE) mg/dL Urine Occult Blood Negative (NEGATIVE) Urine Nitrite Negative (NEGATIVE) Urine Bilirubin Negative (NEGATIVE) Urine Urobilinogen Normal (NORMAL) mg/dL Ur Leukocyte Esterase Negative (NEGATIVE) Urine RBC Not seen (0-5) Urine WBC 0-5 (0-5) Ur Epithelial Cells Few Amorphous Sediment Few Urine Bacteria Few Urine Mucus Not seen Meds: Medications Discontinued Medications Generic Name Dose Route Start Last Admin Trade Name Freq PRN Reason Stop Dose Admin Fluconazole 100 mg 06/22/17 19:02 Diflucan PO 06/22/17 19:03 ONETIME ONE - Re-Assessments/Exams Free Text/Narrative Re-Assessment/Exam: 06/22/17 19:20 pt had aurine rechecked and it looked good. Departure - Departure Time of Disposition: 19:21 Disposition: Home, Self-Care 01 Condition: Fair Clinical Impression: Vaginal yeast infection - Discharge Information Referrals: PCP,None [Primary Care Provider] - Forms: ED Department Discharge Care Plan Goals: difluran 100mg given in Er and 1 more tab in 2 days, monostat vag cream in apply to the area.
[2017-06-22] MEDS ORDERED: Fluconazole 100 MG Tab PO ONE (19:02)
== END 2017-06-22 19:44 | disposition home or self-care (01) ==
LOC: JP.ED 16:35
DX: B37.3 Candidiasis of vulva and vagina (principal); Z91.040 Latex allergy status; Z88.5 Allergy status to narcotic agent; Z88.6 Allergy status to analgesic agent; Z79.899 Other long term (current) drug therapy; Z79.82 Long term (current) use of aspirin; I11.0 Hypertensive heart disease with heart failure; I50.9 Heart failure, unspecified; E78.00 Pure hypercholesterolemia, unspecified; E11.9 Type 2 diabetes mellitus without complications; E03.9 Hypothyroidism, unspecified; Z90.49 Acquired absence of other specified parts of digestive tract; Z90.710 Acquired absence of both cervix and uterus; Z87.891 Personal history of nicotine dependence
CPT/HCPCS: 81001; 99284; A9270

== ENCOUNTER 2019-07-26 08:31 | Observation (INO) | payer MEDICAID ==
[2019-07-26] MEDS ORDERED: Sodium Chloride 0.9% 10 ML Syringe FLUSH PRN ×2 (08:41→11:55)
--- NOTE | 2019-07-26 08:47 | EDM.PDOC ---
ED HPI GENERAL MEDICAL PROBLEM - General Chief Complaint: Respiratory Problem Stated Complaint: breathing issues Time Seen by Provider: 07/26/19 08:35 Source of Information: Reports: Patient, EMS, Old Records, RN History Limitations: Reports: No Limitations - History of Present Illness INITIAL COMMENTS - FREE TEXT/NARRATIVE: 54 yo female with a pHx of CVA presents with increased SOB. Reportedly has a hx of asthma and improved en route per EMS with neb tx's and oxygen. No fever or pain reported. Has an expressive aphasia since her CVA. Onset: Today Onset Date: 07/26/19 Duration: Hour(s): Location: Reports: Chest Quality: Reports: Other (pain not reported.) Severity: Moderate Improves with: Reports: Medication (albuterol), Other (oxygen) Worsens with: Reports: Other (uncertain) Context: Reports: Other (See HPI) Associated Symptoms: Reports: Shortness of Breath. 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: Reports: Other (see below) (albuterol and oxygen per EMS) Upper Chest Pain Score (Numeric/FACES): 4 - Related Data Allergies Allergy/AdvReac Type Severity Reaction Status Date / Time latex Allergy Cannot Verified 07/26/19 08:36 Remember aspirin AdvReac Mild Stomach Verified 07/26/19 08:36 Upset codeine AdvReac Mild Stomach Verified 07/26/19 08:36 Upset hydromorphone [From Dilaudid] AdvReac Nausea and Verified 07/26/19 08:36 Vomiting Home Meds: Home Meds Clopidogrel [Plavix] 75 mg PO DAILY 10/13/13 [History] Levothyroxine [Synthroid] 50 mcg PO ACBRK 10/13/13 [History] Lisinopril 2.5 mg PO DAILY 10/13/13 [History] atorvaSTATin [Lipitor] 20 mg PO BEDTIME 10/13/13 [History] carvediloL [Coreg] 3.125 mg PO BID 10/13/13 [History] metFORMIN [Glucophage] 500 mg PO BIDMEALS 08/25/15 [History] Past Medical History HEENT History: Reports: Allergic Rhinitis, Impaired Vision Cardiovascular History: Reports: Heart Failure, High Cholesterol, Hypertension, Prior Cardiac Arrest Respiratory History: Reports: Sleep Apnea Gastrointestinal History: Reports: Cholelithiasis Genitourinary History: Reports: UTI, 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: Dysfunctional Uterine Bleeding, , Spontaneous Neurological History: Reports: CVA, Speech Problems, Other (See Below) Other Neuro History: right side deficit with residual pain Endocrine/Metabolic History: Reports: Diabetes, Type II, Hypothyroidism, Obesity /BMI 30+ Hematologic History: Reports: Blood Transfusion(s) - Infectious Disease History Infectious Disease History: Reports: Chicken Pox - Past Surgical History GI Surgical History: Reports: Cholecystectomy, EGD, Hernia, Abdominal, Hernia, Inguinal Female Surgical History: Reports: Breast Biopsy, D&C, Hysterectomy, Oophorectomy Oncologic Surgical History: Reports: Biopsy of Breast Social & Family History - Caffeine Use Caffeine Use: Reports: Coffee ED ROS GENERAL - Review of Systems Review Of Systems: See Below Constitutional: Reports: No Symptoms HEENT: Reports: No Symptoms Respiratory: Reports: Shortness of Breath, Wheezing (not now, per EMS there was wheezing). Denies: Cough, Sputum, Hemoptysis Cardiovascular: Reports: No Symptoms GI/Abdominal: Reports: No Symptoms : Reports: No Symptoms Musculoskeletal: Reports: No Symptoms Skin: Reports: No Symptoms Neurological: Reports: No Symptoms Psychiatric: Reports: No Symptoms ED EXAM, GENERAL - Physical Exam Exam: See Below Exam Limited By: Other (patient has an expressive aphasia, not able to verbalize ) General Appearance: Alert, WD/WN, No Apparent Distress Eye Exam: Bilateral Eye: Normal Inspection Ears: Normal External Exam, Normal Canal, Hearing Grossly Normal, Normal TMs Ear Exam: Bilateral Ear: Auricle Normal, Canal Normal Nose: Normal Inspection, No Blood Throat/Mouth: Normal Inspection, Normal Lips, Normal Oropharynx, Normal Voice, No Airway Compromise Head: Atraumatic, Normocephalic Neck: Normal Inspection Respiratory/Chest: No Respiratory Distress, No Accessory Muscle Use, Rales ( lower half of chest bilaterally). No: Decreased Breath Sounds, Rhonchi, Wheezing Cardiovascular: Regular Rate, Rhythm, No Edema GI/Abdominal: Normal Bowel Sounds, Soft, Non-Tender, No Distention Back Exam: Normal Inspection. No: CVA Tenderness (R), CVA Tenderness (L) Extremities: Normal Inspection, Normal Range of Motion, Non-Tender, No Pedal Edema Neurological: Alert, Oriented, CN II-XII Intact, Normal Cognition, No Motor/ Sensory Deficits Psychiatric: Normal Affect, Normal Mood Skin Exam: Warm, Dry, Intact, Normal Color, No Rash Course - Vital Signs Text/Narrative:: Dr. Claros called @ 0937h Last Recorded V/S: Last Vital Signs Temp 36.1 C 07/26/19 08:47 Pulse 70 07/26/19 10:06 Resp 20 07/26/19 10:50 BP 108/54 L 07/26/19 10:06 Pulse Ox 94 L 07/26/19 10:50 - Orders/Labs/Meds Orders: Active Orders 24 hr Category Date Time Status Chest 2V [CR] Stat Exams 07/26/19 08:40 Taken Sodium Chloride 0.9% [Saline Flush] Med 07/26/19 08:41 Active 10 ml FLUSH ASDIRECTED PRN Saline Lock Insert [OM.PC] Routine Oth 07/26/19 08:41 Ordered Medication Orders Sodium Chloride (Saline Flush) 10 ml FLUSH ASDIRECTED PRN PRN Reason: Keep Vein Open Last Admin: 07/26/19 09:11 Dose: 10 ml Labs: Laboratory Tests 07/26/19 07/26/19 07/26/19 Range/Units 08:39 08:45 08:45 WBC 9.8 (4.5-11.0) K/uL RBC 5.15 (3.30-5.50) M/uL Hgb 13.1 (12.0-15.0) g/dL Hct 42.7 (36.0-48.0) % MCV 83 (80-98) fL MCH 25 L (27-31) pg MCHC 31 L (32-36) % Plt Count 258 (150-400) K/uL Sodium 141 (140-148) mmol/L Potassium 4.3 (3.6-5.2) mmol/L Chloride 106 (100-108) mmol/L Carbon Dioxide 24 (21-32) mmol/L Anion Gap 11.1 (5.0-14.0) mmol/L BUN 11 (7-18) mg/dL Creatinine 1.0 (0.6-1.0) mg/dL Est Cr Clr Drug Dosing 48.53 mL/min Estimated GFR (MDRD) 58 L (>60) Glucose 146 H (74-106) mg/dL Calcium 8.4 L (8.5-10.1) mg/dL Troponin I < 0.017 (0.000-0.056) ng/mL NT-Pro-B Natriuret Pep (5-125) pg/mL Urine Color [place] A (YELLOW) Urine Appearance Cloudy A (CLEAR) Urine pH 7.5 (5.0-8.0) Ur Specific [place] 1.020 (1.008-1.030) Urine Protein Trace H (NEGATIVE) mg/dL Urine Glucose (UA) Negative (NEGATIVE) mg/dL Urine Ketones Negative (NEGATIVE) mg/dL Urine Occult Blood Small H (NEGATIVE) Urine Nitrite Positive H (NEGATIVE) Urine Bilirubin Negative (NEGATIVE) Urine Urobilinogen 0.2 (0.2-1.0) EU/dL Ur Leukocyte Esterase Small H (NEGATIVE) Urine RBC 5-10 H (0-5) Urine WBC 10-20 H (0-5) Ur Epithelial Cells Few Amorphous Sediment Few Urine Bacteria Moderate Urine Mucus Not seen 07/26/19 Range/Units 08:45 WBC (4.5-11.0) K/uL RBC (3.30-5.50) M/uL Hgb (12.0-15.0) g/dL Hct (36.0-48.0) % MCV (80-98) fL MCH (27-31) pg MCHC (32-36) % Plt Count (150-400) K/uL Sodium (140-148) mmol/L Potassium (3.6-5.2) mmol/L Chloride (100-108) mmol/L Carbon Dioxide (21-32) mmol/L Anion Gap (5.0-14.0) mmol/L BUN (7-18) mg/dL Creatinine (0.6-1.0) mg/dL Est Cr Clr Drug Dosing mL/min Estimated GFR (MDRD) (>60) Glucose (74-106) mg/dL Calcium (8.5-10.1) mg/dL Troponin I (0.000-0.056) ng/mL NT-Pro-B Natriuret Pep 1223 H (5-125) pg/mL Urine Color (YELLOW) Urine Appearance (CLEAR) Urine pH (5.0-8.0) Ur Specific [place] (1.008-1.030) Urine Protein (NEGATIVE) mg/dL Urine Glucose (UA) (NEGATIVE) mg/dL Urine Ketones (NEGATIVE) mg/dL Urine Occult Blood (NEGATIVE) Urine Nitrite (NEGATIVE) Urine Bilirubin (NEGATIVE) Urine Urobilinogen (0.2-1.0) EU/dL Ur Leukocyte Esterase (NEGATIVE) Urine RBC (0-5) Urine WBC (0-5) Ur Epithelial Cells Amorphous Sediment Urine Bacteria Urine Mucus Meds: Medications Generic Name Dose Route Start Last Admin Trade Name Freq PRN Reason Stop Dose Admin Sodium Chloride 10 ml 07/26/19 08:41 07/26/19 09:11 Saline Flush FLUSH 10 ml ASDIRECTED PRN Administration Keep Vein Open Discontinued Medications Generic Name Dose Route Start Last Admin Trade Name Freq PRN Reason Stop Dose Admin Furosemide 40 mg 07/26/19 09:31 07/26/19 09:36 Lasix IVPUSH 07/26/19 09:32 40 mg ONETIME ONE Administration - Radiology Interpretation Free Text/Narrative:: CXR-CHF Departure - Departure Time of Disposition: 11:23 Disposition: Admitted As Inpatient 66 Condition: Fair Clinical Impression: Elevated brain natriuretic peptide (BNP) level CHF (congestive heart failure) Qualifiers: Heart failure type: unspecified Heart failure chronicity: unspecified Qualified Code(s): I50.9 - Heart failure, unspecified Pulmonary edema Qualifiers: Chronicity: acute Qualified Code(s): J81.0 - Acute pulmonary edema - Discharge Information Sepsis Event Note - Focused Exam Vital Signs: Vital Signs Temp Pulse Resp BP Pulse Ox 07/26/19 10:50 20 94 L 07/26/19 10:06 70 108/54 L 93 L 07/26/19 08:47 36.1 C 55 L 37 H 114/76 94 L 07/26/19 08:44 36.1 C 55 L 37 H 114/76 94 L Date Exam was Performed: 07/26/19 Time Exam was Performed: 11:23 - My Orders Last 24 Hours: My Active Orders 07/26/19 08:40 Chest 2V [CR] Stat 07/26/19 08:41 Sodium Chloride 0.9% [Saline Flush] 10 ml FLUSH ASDIRECTED PRN Saline Lock Insert [OM.PC] Routine - Assessment/Plan Last 24 Hours: My Active Orders 07/26/19 08:40 Chest 2V [CR] Stat 07/26/19 08:41 Sodium Chloride 0.9% [Saline Flush] 10 ml FLUSH ASDIRECTED PRN Saline Lock Insert [OM.PC] Routine
[2019-07-26] MEDS ORDERED: Furosemide 40 MG/4 ML VIAL IVPUSH ONE ×2 (09:31→20:00)
--- NOTE | 2019-07-26 11:12 | PCM.HP.2 ---
H&P History of Present Illness - General Date of Service: 07/26/19 Admit Problem/Dx: Admission Diagnosis/Problem Admission Diagnosis/Problem Hypoxia Source of Information: Patient, Provider, RN Notes Reviewed History Limitations: Reports: Language Barrier (Expressive a aphasia) - History of Present Illness Initial Comments - Free Text/Narative: Ms. Cota is a 54-year-old woman who was admitted to observation status through the emergency department with hypoxia and shortness of breath secondary to congestive heart failure. She reports that she has a known history of congestive heart failure. Over the last 2 days has become progressively more short of breath. Shortness of breath was worse this morning so she called for ambulance and was brought in via EMS. While in the ambulance she did receive nebulizer therapy and oxygenation had improved by the time she arrived in the emergency department. Evaluation in the emergency department is consistent with congestive heart failure based on findings of chest x-ray as well as an elevated BNP. There is no evidence of underlying pulmonary infection. She has received IV furosemide in the emergency department and with that has noted some improvement in shortness of breath. She denies any symptoms of chest pain or pressure and troponin level is found to be within normal range. She does have an expressive a aphasia compromising ability to describe recent symptoms and communicate questions with review of systems. Upper Chest Pain Score (Numeric/FACES): 4 - Related Data Allergies/Adverse Reactions: Allergies Allergy/AdvReac Type Severity Reaction Status Date / Time latex Allergy Cannot Verified 07/26/19 08:36 Remember aspirin AdvReac Mild Stomach Verified 07/26/19 08:36 Upset codeine AdvReac Mild Stomach Verified 07/26/19 08:36 Upset hydromorphone [From Dilaudid] AdvReac Nausea and Verified 07/26/19 08:36 Vomiting Home Medications: Home Meds Clopidogrel [Plavix] 75 mg PO DAILY 10/13/13 [History] Levothyroxine [Synthroid] 50 mcg PO ACBRK 10/13/13 [History] Lisinopril 2.5 mg PO DAILY 10/13/13 [History] atorvaSTATin [Lipitor] 20 mg PO BEDTIME 10/13/13 [History] carvediloL [Coreg] 3.125 mg PO BID 10/13/13 [History] metFORMIN [Glucophage] 500 mg PO BIDMEALS 08/25/15 [History] Fexofenadine [Fexofenadine HCl] 180 mg PO ASDIRECTED PRN 07/26/19 [History] Loperamide HCl [Anti-Diarrheal] 2 mg PO ASDIRECTED 07/26/19 [History] Past Medical History HEENT History: Reports: Allergic Rhinitis, Impaired Vision Cardiovascular History: Reports: Heart Failure, High Cholesterol, Hypertension, Prior Cardiac Arrest Respiratory History: Reports: Sleep Apnea Gastrointestinal History: Reports: Cholelithiasis Genitourinary History: Reports: UTI, Recurrent [employer] History: Reports: Dysfunctional Uterine Bleeding, , Spontaneous Musculoskeletal History: Reports: Other (See Below) Other Musculoskeletal History: chronic pain on right side due to stroke Neurological History: Reports: CVA, Speech Problems, Other (See Below) Other Neuro History: right side deficit with residual pain Endocrine/Metabolic History: Reports: Diabetes, Type II, Hypothyroidism, Obesity /BMI 30+ Hematologic History: Reports: Blood Transfusion(s) Oncologic (Cancer) History: Reports: None - Infectious Disease History Infectious Disease History: Reports: Chicken Pox - Past Surgical History GI Surgical History: Reports: Cholecystectomy, EGD, Hernia, Abdominal, Hernia, Inguinal Female Surgical History: Reports: Breast Biopsy, D&C, Hysterectomy, Oophorectomy Oncologic Surgical History: Reports: Biopsy of Breast Social & Family History - Tobacco Use Smoking Status *Q: Former Smoker Used Tobacco, but Quit: Yes Month/Year Tobacco Last Used: 2011 - Caffeine Use Caffeine Use: Reports: Coffee - Recreational Drug Use Recreational Drug Use: No H&P Review of Systems - Review of Systems: Review Of Systems: See Below General: Reports: ROS unobtainable (Suppressive aphasia) Exam - Exam Exam: See Below - Vital Signs Vital Signs: Last Vital Signs Temp 96.9 F 07/26/19 08:47 Pulse 70 07/26/19 10:06 Resp 20 07/26/19 10:50 BP 108/54 L 07/26/19 10:06 Pulse Ox 94 L 07/26/19 10:50 Weight: 189 lb 9.561 oz - Exam Quality Assessment: DVT Prophylaxis. No: Supplemental Oxygen General: Alert, Oriented, Cooperative, Mild Distress HEENT: Conjunctiva Clear, Hearing Intact, Mucosa Moist & [place], Normal Nasal Septum, Posterior Pharynx Clear, Pupils Equal Neck: Supple, Trachea Midline, +2 Carotid Pulse wo Bruit Lungs: Normal Respiratory Effort, Rales. No: Crackles, Wheezing Cardiovascular: Regular Rate, Regular Rhythm, Normal S1, Normal S2. No: Systolic Murmur, Diastolic Murmur GI/Abdominal Exam: Soft, Non-Tender, No Organomegaly, No Distention Back Exam: Normal Inspection, Full Range of Motion Extremities: Non-Tender, No Pedal Edema Skin: Warm, Dry, Intact Neurological: Cranial Nerves Intact, Strength Equal Bilateral, Normal Tone, Sensation Intact, Focal Deficit. No: Normal Speech Neuro Extensive - Mental Status: Alert, Oriented x3, Normal Mood/Affect, Normal Cognition, Memory Intact - Patient Data Lab Results Last 24 hrs: Laboratory Results - last 24 hr 07/26/19 07/26/19 07/26/19 Range/Units 08:39 08:45 08:45 WBC 9.8 (4.5-11.0) K/uL RBC 5.15 (3.30-5.50) M/uL Hgb 13.1 (12.0-15.0) g/dL Hct 42.7 (36.0-48.0) % MCV 83 (80-98) fL MCH 25 L (27-31) pg MCHC 31 L (32-36) % Plt Count 258 (150-400) K/uL Sodium 141 (140-148) mmol/L Potassium 4.3 (3.6-5.2) mmol/L Chloride 106 (100-108) mmol/L Carbon Dioxide 24 (21-32) mmol/L Anion Gap 11.1 (5.0-14.0) mmol/L BUN 11 (7-18) mg/dL Creatinine 1.0 (0.6-1.0) mg/dL Est Cr Clr Drug Dosing 48.53 mL/min Estimated GFR (MDRD) 58 L (>60) Glucose 146 H (74-106) mg/dL Calcium 8.4 L (8.5-10.1) mg/dL Troponin I < 0.017 (0.000-0.056) ng/mL NT-Pro-B Natriuret Pep (5-125) pg/mL Urine Color [place] A (YELLOW) Urine Appearance Cloudy A (CLEAR) Urine pH 7.5 (5.0-8.0) Ur Specific [place] 1.020 (1.008-1.030) Urine Protein Trace H (NEGATIVE) mg/dL Urine Glucose (UA) Negative (NEGATIVE) mg/dL Urine Ketones Negative (NEGATIVE) mg/dL Urine Occult Blood Small H (NEGATIVE) Urine Nitrite Positive H (NEGATIVE) Urine Bilirubin Negative (NEGATIVE) Urine Urobilinogen 0.2 (0.2-1.0) EU/dL Ur Leukocyte Esterase Small H (NEGATIVE) Urine RBC 5-10 H (0-5) Urine WBC 10-20 H (0-5) Ur Epithelial Cells Few Amorphous Sediment Few Urine Bacteria Moderate Urine Mucus Not seen 07/26/19 Range/Units 08:45 WBC (4.5-11.0) K/uL RBC (3.30-5.50) M/uL Hgb (12.0-15.0) g/dL Hct (36.0-48.0) % MCV (80-98) fL MCH (27-31) pg MCHC (32-36) % Plt Count (150-400) K/uL Sodium (140-148) mmol/L Potassium (3.6-5.2) mmol/L Chloride (100-108) mmol/L Carbon Dioxide (21-32) mmol/L Anion Gap (5.0-14.0) mmol/L BUN (7-18) mg/dL Creatinine (0.6-1.0) mg/dL Est Cr Clr Drug Dosing mL/min Estimated GFR (MDRD) (>60) Glucose (74-106) mg/dL Calcium (8.5-10.1) mg/dL Troponin I (0.000-0.056) ng/mL NT-Pro-B Natriuret Pep 1223 H (5-125) pg/mL Urine Color (YELLOW) Urine Appearance (CLEAR) Urine pH (5.0-8.0) Ur Specific [place] (1.008-1.030) Urine Protein (NEGATIVE) mg/dL Urine Glucose (UA) (NEGATIVE) mg/dL Urine Ketones (NEGATIVE) mg/dL Urine Occult Blood (NEGATIVE) Urine Nitrite (NEGATIVE) Urine Bilirubin (NEGATIVE) Urine Urobilinogen (0.2-1.0) EU/dL Ur Leukocyte Esterase (NEGATIVE) Urine RBC (0-5) Urine WBC (0-5) Ur Epithelial Cells Amorphous Sediment Urine Bacteria Urine Mucus Result Diagrams: 07/26/19 08:45 07/26/19 08:45 Sepsis Event Note - Evaluation Sepsis Screening Result: No Definite Risk - Focused Exam Vital Signs: Vital Signs Temp Pulse Resp BP Pulse Ox 07/26/19 10:50 20 94 L 07/26/19 10:06 70 108/54 L 93 L 07/26/19 08:47 96.9 F 55 L 37 H 114/76 94 L 07/26/19 08:44 96.9 F 55 L 37 H 114/76 94 L Date Exam was Performed: 07/26/19 Time Exam was Performed: 14:29 *Q Meaningful Use (ADM) - VTE Risk Assess *Q Each Risk Factor Represents 1 Point: Age 41 - 59 years, Obesity ( BMI > 25 kg/m2 ), Congestive heart failure (CHF) Total Score 1 Point Risk Factors: 3 Each Risk Factor Represents 2 Points: None Total Score 2 Point Risk Factors: 0 Each Risk Factor Represents 3 Points: None Total Score 3 Point Risk Factors: 0 Each Risk Factor Represents 5 Points: None Total Score 5 Point Risk Factors: 0 Venous Thromboembolism Risk Factor Score *Q: 3 Problem List Initiated/Reviewed/Updated: Yes Orders Last 24hrs: Active Orders 24 hr Category Date Time Status Patient Status Manage Transfer [TRANSFER] Routine ADT 07/26/19 10:57 Active Chest 2V [CR] Stat Exams 07/26/19 08:40 Taken INFLUENZA A+B AG SCREEN [RM] Stat Lab 07/26/19 10:59 Ordered Sodium Chloride 0.9% [Saline Flush] Med 07/26/19 08:41 Active 10 ml FLUSH ASDIRECTED PRN Saline Lock Insert [OM.PC] Routine Oth 07/26/19 08:41 Ordered Resuscitation Status Routine Resus Stat 07/26/19 11:00 Ordered Medication Orders Sodium Chloride (Saline Flush) 10 ml FLUSH ASDIRECTED PRN PRN Reason: Keep Vein Open Last Admin: 07/26/19 09:11 Dose: 10 ml Assessment/Plan Comment:: ASSESSMENT AND PLAN CONGESTIVE HEART FAILURE-increased shortness of breath over the past 2 days, evidence of pulmonary edema identified on chest x-ray. BNP is elevated, no baseline level for comparison. No evidence of underlying pulmonary infection or significant risk factors for PE. -IV furosemide given in emergency department and will be repeated later this evening -Reassess in a.m. 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 DISPOSITION-anticipate discharge to home after the hospital stay. PRIMARY CARE PROVIDER-Amol Pierre - Mortality Measure Prognosis:: Good
[2019-07-26] MEDS ORDERED: Glucose Gel 15 GM in 37.5 GM Tube PO PRN (11:55)
[2019-07-26] MEDS ORDERED: 50% Dextrose in Water 50 ML Syringe IV PRN (11:55)
[2019-07-26] MEDS ORDERED: Polyethylene Glycol 3350 Powder 17 GM Packet PO PRN (11:55)
[2019-07-26] MEDS ORDERED: Acetaminophen 325 MG Tab PO PRN (11:55)
[2019-07-26] MEDS ORDERED: Enoxaparin 40 MG/0.4 ML Syringe SUBCUT SCH (14:00)
[2019-07-26] MEDS ORDERED: Albuterol 0.083% 2.5 MG/3 ML Neb Soln NEB PRN (14:40)
[2019-07-26] MEDS: Insulin Lispro 100 Unit/ML 3 ML KwikPen SUBCUT SCH ×3 (14:52→21:28)
[2019-07-26] MEDS: Albuterol/Ipratropium 3.0-0.5 MG/3 ML Neb Soln NEB SCH ×2 (14:54→21:52)
[2019-07-26] MEDS: metFORMIN 500 MG Tab PO SCH (17:48)
[2019-07-26] MEDS ORDERED: atorvaSTATin 20 MG Tab PO SCH (21:00)
[2019-07-26] MEDS: Carvedilol 3.125 MG Tab PO SCH (21:50)
[2019-07-27] MEDS: Albuterol/Ipratropium 3.0-0.5 MG/3 ML Neb Soln NEB SCH ×2 (07:11→10:49)
[2019-07-27] MEDS ORDERED: Levothyroxine 50 MCG Tab PO SCH (07:30)
[2019-07-27] MEDS: Insulin Lispro 100 Unit/ML 3 ML KwikPen SUBCUT SCH ×2 (07:41→12:05)
[2019-07-27] MEDS: metFORMIN 500 MG Tab PO SCH (07:42)
[2019-07-27] MEDS ORDERED: Furosemide 40 MG/4 ML VIAL IVPUSH ONE (08:45)
[2019-07-27] MEDS ORDERED: Lisinopril 2.5 MG Tab PO SCH (09:00)
[2019-07-27] MEDS ORDERED: Clopidogrel 75 MG Tab PO SCH (09:00)
[2019-07-27] MEDS: Carvedilol 3.125 MG Tab PO SCH (09:07)
[2019-07-27 10:53] VITALS: BP 125/50; PULSE 54
--- NOTE | 2019-07-27 10:55 | PCM.DCSUM1 ---
Discharge Summary - Hospital Course Brief History: Ms. Cota is a 54-year-old woman who was admitted to observation status through the emergency department with shortness of breath and hypoxia secondary to CHF exacerbation and fluid overload. - Discharge Data Discharge Date: 07/27/19 Discharge Disposition: Home, Self-Care 01 Condition: Fair - Referral to Home Health Primary Care Physician: Amol Barone NP - Discharge Diagnosis/Problem(s) (1) Hypoxia SNOMED Code(s): 624019777 ICD Code: R09.02 - HYPOXEMIA Status: Acute Current Visit: Yes (2) Diabetes mellitus type II, controlled SNOMED Code(s): 80706726, 380910031 ICD Code: E11.9 - TYPE 2 DIABETES MELLITUS WITHOUT COMPLICATIONS Status: Chronic Current Visit: No Qualifiers: Diabetes mellitus care home insulin use: without oil heaterman use Diabetes mellitus complication status: without complication Qualified Code(s): E11.9 - Type 2 diabetes mellitus without complications (3) CHF (congestive heart failure) SNOMED Code(s): 11814032 ICD Code: I50.9 - HEART FAILURE, UNSPECIFIED Status: Acute Current Visit : Yes Qualifiers: Heart failure type: unspecified Heart failure chronicity: unspecified Qualified Code(s): I50.9 - Heart failure, unspecified (4) Pulmonary edema SNOMED Code(s): 96266233 ICD Code: J81.1 - CHRONIC PULMONARY EDEMA Status: Acute Current Visit: Yes Qualifiers: Chronicity: acute Qualified Code(s): J81.0 - Acute pulmonary edema - Patient Summary/Data Hospital Course: Ms. Cota is a 54-year-old woman who was admitted to observation status through the emergency department with hypoxia and shortness of breath secondary to congestive heart failure. She reports that she has a known history of congestive heart failure. Over the last 2 days has become progressively more short of breath. Shortness of breath was worse on the morning of admission, so she called for ambulance and was brought in via EMS. While in the ambulance she did receive nebulizer therapy and supplemental oxygen, and oxygenation had improved by the time she arrived in the emergency department. Evaluation in the emergency department was consistent with congestive heart failure based on findings of chest x-ray as well as an elevated BNP. There is no evidence of underlying pulmonary infection. She has received IV furosemide in the emergency department and with that has noted some improvement in shortness of breath. She denies any symptoms of chest pain or pressure and troponin level is found to be within normal range. She does have an expressive a aphasia compromising ability to describe recent symptoms and communicate questions with review of systems. After admission she received IV furosemide later in the evening and again the following morning. She had no further hypoxia noted during hospitalization and was ambulating in the hallways on room air prior to discharge. Blood glucose levels were monitored during hospital stay and she was continued on her usual dose of metformin. Low-dose sliding scale NovoLog was ordered for additional management of her diabetes. Because of the weekend we were unable to obtain an echocardiogram during her hospital stay. She will be discharged home on furosemide 20 mg p.o. daily. Follow-up appointment will be scheduled with her primary care provider within 1 week. BMP should be obtained at the time of follow-up appointment. Outpatient echocardiogram should also be obtained to reassess left ventricular function and valvular status. Activity will be as tolerated and she will be on a 2 g sodium diabetic diet. - Patient Instructions Diet: Low Sodium, Diabetic Diet Activity: As Tolerated Other/Special Instructions: Please schedule follow-up appointment with primary care provider within 1 week. BMP should be obtained at the time of follow-up appointment. - Discharge Plan *PRESCRIPTION DRUG MONITORING PROGRAM REVIEWED*: Not Applicable *COPY OF PRESCRIPTION DRUG MONITORING REPORT IN PATIENT PAMELA: Not Applicable Prescriptions/Med Rec: Furosemide 20 mg PO DAILY #30 tablet Home Medications: Home Meds Clopidogrel [Plavix] 75 mg PO DAILY 10/13/13 [History] Levothyroxine [Synthroid] 50 mcg PO ACBRK 10/13/13 [History] Lisinopril 2.5 mg PO DAILY 10/13/13 [History] atorvaSTATin [Lipitor] 20 mg PO BEDTIME 10/13/13 [History] carvediloL [Coreg] 3.125 mg PO BID 10/13/13 [History] metFORMIN [Glucophage] 500 mg PO BIDMEALS 08/25/15 [History] Fexofenadine [Daphnie] 180 mg PO ASDIRECTED PRN 07/26/19 [History] Loperamide HCl [Anti-Diarrheal] 2 mg PO ASDIRECTED 07/26/19 [History] Furosemide 20 mg PO DAILY #30 tablet 07/27/19 [Rx] Referrals: Amol Barone NP [Primary Care Provider] - - Discharge Summary/Plan Comment DC Time >30 min.: No - Patient Data Vitals - Most Recent: Last Vital Signs Temp 97.5 F 07/27/19 07:19 Pulse 50 L 07/27/19 07:19 Resp 16 07/27/19 07:19 BP 110/70 07/27/19 09:01 Pulse Ox 95 07/27/19 07:19 Weight - Most Recent: 188 lb 3.2 oz I&O - Last 24 hours: Intake & Output 07/26/19 07/27/19 07/27/19 21:59 06:59 14:59 Intake Total 1350 Output Total 600 Balance 750 Lab Results - Last 24 hrs: Laboratory Results - last 24 hr 07/27/19 07/27/19 Range/Units 05:45 05:45 WBC 7.6 (4.5-11.0) K/uL RBC 4.56 (3.30-5.50) M/uL Hgb 11.5 L (12.0-15.0) g/dL Hct 38.0 (36.0-48.0) % MCV 83 (80-98) fL MCH 25 L (27-31) pg MCHC 30 L (32-36) % Plt Count 218 (150-400) K/uL Neut % (Auto) 56 (36-66) % Lymph % (Auto) 31 (24-44) % [place] % (Auto) 9 H (2-6) % Eos % (Auto) 3 (2-4) % Baso % (Auto) 0 (0-1) % Sodium 144 (140-148) mmol/L Potassium 3.7 (3.6-5.2) mmol/L Chloride 105 (100-108) mmol/L Carbon Dioxide 28 (21-32) mmol/L Anion Gap 10.9 (5.0-14.0) mmol/L BUN 13 (7-18) mg/dL Creatinine 1.0 (0.6-1.0) mg/dL Est Cr Clr Drug Dosing 48.58 mL/min Estimated GFR (MDRD) 58 L (>60) Glucose 137 H (74-106) mg/dL Calcium 8.7 (8.5-10.1) mg/dL Magnesium 2.1 (1.8-2.4) mg/dL BHUMIKA Results - Last 24 hrs: Microbiology 07/26/19 10:59 Influenza Type A Antigen Screen - Final Nasal, Unspecified NEGATIVE INFLUENZA A VIRUS AG REFERENCE RANGE: NEGATIVE Influenza Type B Antigen Screen - Final NEGATIVE INFLUENZA B VIRUS AG REFERENCE RANGE: NEGATIVE Med Orders - Current: Current Medications Acetaminophen (Tylenol) 650 mg PO Q4H PRN PRN Reason: Pain (Mild 1-3)/fever Last Admin: 07/26/19 19:36 Dose: 650 mg Albuterol (Proventil Neb Soln) 2.5 mg NEB Q4H PRN PRN Reason: Dyspnea Albuterol/Ipratropium (Duoneb 3.0-0.5 Mg/3 Ml) 3 ml NEB QIDRT [facility] Last Admin: 07/27/19 10:49 Dose: 3 ml Atorvastatin Calcium (Lipitor) 20 mg PO BEDTIME [facility] Last Admin: 07/26/19 21:50 Dose: 20 mg Carvedilol (Coreg) 3.125 mg PO BID [facility] Last Admin: 07/27/19 09:07 Dose: Not Given Clopidogrel Bisulfate (Plavix) 75 mg PO DAILY [facility] Last Admin: 07/27/19 09:04 Dose: 75 mg Dextrose (Glutose 15) 15 gm PO ASDIRECTED PRN PRN Reason: Hypoglycemia Dextrose/Water (Dextrose 50% In Water) 50 ml IV ASDIRECTED PRN PRN Reason: Hypoglycemia Enoxaparin Sodium (Lovenox) 40 mg SUBCUT Q24H [facility] Last Admin: 07/26/19 14:51 Dose: 40 mg Insulin Human Lispro (Humalog) 0 unit SUBCUT QIDACANDBED [facility]; Protocol Last Admin: 07/27/19 07:41 Dose: Not Given Levothyroxine Sodium (Synthroid) 50 mcg PO ACBRK [facility] Last Admin: 07/27/19 07:42 Dose: 50 mcg Lisinopril (Prinivil) 2.5 mg PO DAILY [facility] Last Admin: 07/27/19 09:01 Dose: Not Given Metformin HCl (Glucophage) 500 mg PO BIDMEALS [facility] Last Admin: 07/27/19 07:42 Dose: 500 mg Polyethylene Glycol (Miralax) 17 gm PO DAILY PRN PRN Reason: Constipation Sodium Chloride (Saline Flush) 10 ml FLUSH ASDIRECTED PRN PRN Reason: Keep Vein Open Discontinued Medications Furosemide (Lasix) 40 mg IVPUSH ONETIME ONE Stop: 07/26/19 09:32 Last Admin: 07/26/19 09:36 Dose: 40 mg Furosemide (Lasix) 40 mg IVPUSH ONETIME ONE Stop: 07/26/19 20:01 Last Admin: 07/26/19 19:38 Dose: 40 mg Furosemide (Lasix) 40 mg IVPUSH NOW ONE Stop: 07/27/19 08:46 Last Admin: 07/27/19 09:08 Dose: 40 mg Sodium Chloride (Saline Flush) 10 ml FLUSH ASDIRECTED PRN PRN Reason: Keep Vein Open Last Admin: 07/26/19 09:11 Dose: 10 ml - Exam General: Reports: Alert, Oriented, Cooperative, No Acute Distress Lungs: Reports: Clear to Auscultation, Normal Respiratory Effort Cardiovascular: Reports: Regular Rate, Regular Rhythm, No Murmurs GI/Abdominal Exam: Soft, Non-Tender, No Organomegaly, No Distention Extremities: Non-Tender, No Pedal Edema
--- NOTE | 2019-07-28 09:05 | CR ---
CHEST: 2 view CLINICAL HISTORY:SOB COMPARISON:2012 FINDINGS: Heart is enlarged. Pulmonary vascularity is cephalized. There is diffuse interstitial prominence. No effusions are seen. Impression: Cardiac megaly with vascular congestion and interstitial infiltrate most consistent with CHF.
== END 2019-07-27 12:00 | disposition home or self-care (01) ==
LOC: JP.ED 08:31 → JP.MS 10:57
PROVIDERS: ADMIT Hospitalist; ATTEND Hospitalist
DX: I11.0 Hypertensive heart disease with heart failure (principal); I50.9 Heart failure, unspecified; J81.1 Chronic pulmonary edema; E11.9 Type 2 diabetes mellitus without complications; E78.00 Pure hypercholesterolemia, unspecified; E03.9 Hypothyroidism, unspecified; E66.9 Obesity, unspecified; Z79.84 Long term (current) use of oral hypoglycemic drugs; Z79.899 Other long term (current) drug therapy; Z79.02 Long term (current) use of antithrombotics/antiplatelets; Z88.8 Allergy status to other drugs, medicaments and biological substances; Z88.5 Allergy status to narcotic agent; Z91.040 Latex allergy status; Z86.73 Personal history of transient ischemic attack (TIA), and cerebral infarction without residual deficits; Z87.891 Personal history of nicotine dependence; Z68.35 Body mass index [BMI] 35.0-35.9, adult
CPT/HCPCS: 36415; 71046; 80048; 81001; 82962; 83735; 83880; 84484; 85025; 85027; 87804; 94640; 94762; 96372; 96374; 96376; 99217; 99218; 99284; 99285; A9270; G0378; J1650; J1940; J7620-GY

== ENCOUNTER 2019-10-19 01:51 | Observation (INO) | payer MEDICAID ==
[2019-10-19] MEDS ORDERED: Furosemide 40 MG/4 ML VIAL IVPUSH ONE (02:09)
--- NOTE | 2019-10-19 02:34 | EDM.PDOC ---
ED HPI GENERAL MEDICAL PROBLEM - General Chief Complaint: Respiratory Problem Stated Complaint: MEDICAL [facility] Time Seen by Provider: 10/19/19 02:15 Source of Information: Reports: Patient, EMS, RN, RN Notes Reviewed History Limitations: Reports: Other (expressive aphasia) - History of Present Illness INITIAL COMMENTS - FREE TEXT/NARRATIVE: Zuleyma is a 54 yo female that presents to ED via EMS for shortness of breath and difficulty breathing that had a sudden onset and awoke her from her sleep. history is complicated to get due to expressive aphasia by the patient and hx of CVA. She was hospitalized for fluid overload and CHF exacerbation in early July. Her sister is present with her. Onset: Today Location: Reports: Chest Worsens with: Reports: Movement Associated Symptoms: Reports: Diaphoresis, Shortness of Breath - Related Data Allergies Allergy/AdvReac Type Severity Reaction Status Date / Time latex Allergy Rash Verified 10/19/19 03:07 aspirin AdvReac Mild Stomach Verified 10/19/19 03:07 Upset codeine AdvReac Mild Vomiting Verified 10/19/19 03:07 hydromorphone [From Dilaudid] AdvReac Nausea and Verified 10/19/19 03:07 Vomiting Home Meds: Home Meds Clopidogrel [Plavix] 75 mg PO DAILY 10/13/13 [History] Levothyroxine [Synthroid] 50 mcg PO ACBRK 10/13/13 [History] Lisinopril 2.5 mg PO DAILY 10/13/13 [History] atorvaSTATin [Lipitor] 20 mg PO BEDTIME 10/13/13 [History] metFORMIN [Glucophage] 500 mg PO BIDMEALS 08/25/15 [History] Fexofenadine [Daphnie] 180 mg PO ASDIRECTED PRN 07/26/19 [History] Loperamide HCl [Anti-Diarrheal] 2 mg PO ASDIRECTED 07/26/19 [History] Furosemide [Lasix] 40 mg PO DAILY #30 tablet 10/21/19 [Rx] carvediloL [Coreg] 6.25 mg PO BID #60 tablet 10/21/19 [Rx] Past Medical History HEENT History: Reports: Allergic Rhinitis, Impaired Vision Cardiovascular History: Reports: Heart Failure, High Cholesterol, Hypertension, Prior Cardiac Arrest Respiratory History: Reports: Sleep Apnea Gastrointestinal History: Reports: Cholelithiasis Genitourinary History: Reports: UTI, Recurrent HOGSHEAD SALVAGE History: Reports: Dysfunctional Uterine Bleeding, , Spontaneous Musculoskeletal History: Reports: Other (See Below) Other Musculoskeletal History: chronic pain on right side due to stroke Neurological History: Reports: CVA, Speech Problems, Other (See Below) Other Neuro History: right side deficit with residual pain Endocrine/Metabolic History: Reports: Diabetes, Type II, Hypothyroidism, Obesity /BMI 30+ Hematologic History: Reports: Blood Transfusion(s) Oncologic (Cancer) History: Reports: None - Infectious Disease History Infectious Disease History: Reports: Chicken Pox - Past Surgical History GI Surgical History: Reports: Cholecystectomy, EGD, Hernia, Abdominal, Hernia, Inguinal Female Surgical History: Reports: Breast Biopsy, D&C, Hysterectomy, Oophorectomy Oncologic Surgical History: Reports: Biopsy of Breast Social & Family History - Caffeine Use Caffeine Use: Reports: Coffee ED ROS GENERAL - Review of Systems Review Of Systems: See Below Constitutional: Reports: No Symptoms Respiratory: Reports: Shortness of Breath Cardiovascular: Reports: Dyspnea on Exertion Endocrine: Reports: No Symptoms GI/Abdominal: Reports: No Symptoms Musculoskeletal: Reports: No Symptoms Skin: Reports: No Symptoms Neurological: Reports: No Symptoms ED EXAM, GENERAL - Physical Exam Exam: See Below Exam Limited By: No Limitations General Appearance: Alert, Moderate Distress, Obese Head: Atraumatic, Normocephalic Respiratory/Chest: Crackles, Rhonchi Cardiovascular: Regular Rate, Rhythm, Tachycardia GI/Abdominal: Soft, Non-Tender (Female) Exam: Deferred Rectal (Female) Exam: Deferred Neurological: Alert, Other (Hx of CVA with deficits ) Psychiatric: Tearful Skin Exam: Diaphoretic Course - Vital Signs Last Recorded V/S: Last Vital Signs Temp 36.7 C 10/21/19 11:00 Pulse 96 10/21/19 11:00 Resp 18 10/21/19 11:00 BP 82/63 L 10/21/19 11:00 Pulse Ox 98 10/21/19 11:00 - Orders/Labs/Meds Labs: Laboratory Tests 10/19/19 10/19/19 10/19/19 Range/Units 02:37 02:37 02:38 WBC 13.8 H (4.5-11.0) K/uL RBC 4.77 (3.30-5.50) M/uL Hgb 11.8 L (12.0-15.0) g/dL Hct 39.5 (36.0-48.0) % MCV 83 (80-98) fL MCH 25 L (27-31) pg MCHC 30 L (32-36) % Plt Count 291 (150-400) K/uL Neut % (Auto) 77 H (36-66) % Lymph % (Auto) 17 L (24-44) % [place] % (Auto) 4 (2-6) % Eos % (Auto) 2 (2-4) % Baso % (Auto) 0 (0-1) % Puncture Site Lt radial ABG pH 7.411 (7.350-7.450) ABG pCO2 33.0 L (35.0-42.0) mmHg ABG pO2 76.5 (75.0-100.0) mmHg ABG HCO3 20.6 L (22.0-26.0) mmol/L ABG Total CO2 18.6 L (21.0-25.0) mmol/L ABG O2 Saturation 95.1 (95.0-98.0) % ABG O2 Content 15.6 (15.0-23.0) %vol ABG Base Excess -2.9 mm/L ABG Hemoglobin 11.8 L (12.0-16.0) g/dL ABG Oxyhemoglobin 93.1 % ABG Carboxyhemoglobin 1.3 (0.0-1.6) % ABG Methemoglobin 0.8 % Mukesh Test Pass O2 Delivery Device Nasal cannula Oxygen Flow Rate 2.0 L Sodium 140 (140-148) mmol/L Potassium 4.7 (3.6-5.2) mmol/L Chloride 105 (100-108) mmol/L Carbon Dioxide 22 (21-32) mmol/L Anion Gap 13.5 (5.0-14.0) mmol/L BUN 19 H (7-18) mg/dL Creatinine 1.0 (0.6-1.0) mg/dL Est Cr Clr Drug Dosing TNP Estimated GFR (MDRD) 58 L (>60) Glucose 153 H (74-106) mg/dL Calcium 8.7 (8.5-10.1) mg/dL Total Bilirubin 1.1 H D (0.2-1.0) mg/dL AST 26 (15-37) U/L ALT 24 (12-78) U/L Alkaline Phosphatase 119 H (46-116) U/L Troponin I (0.000-0.056) ng/mL NT-Pro-B Natriuret Pep 1986 H (5-125) pg/mL Total Protein 7.1 (6.4-8.2) g/dL Albumin 3.4 (3.4-5.0) g/dL Globulin 3.7 H (2.3-3.5) g/dL Albumin/Globulin Ratio 0.9 L (1.2-2.2) Urine Color (YELLOW) Urine Appearance (CLEAR) Urine pH (5.0-8.0) Ur Specific [place] (1.008-1.030) Urine Protein (NEGATIVE) mg/dL Urine Glucose (UA) (NEGATIVE) mg/dL Urine Ketones (NEGATIVE) mg/dL Urine Occult Blood (NEGATIVE) Urine Nitrite (NEGATIVE) Urine Bilirubin (NEGATIVE) Urine Urobilinogen (0.2-1.0) EU/dL Ur Leukocyte Esterase (NEGATIVE) Urine RBC (0-5) Urine WBC (0-5) Ur Epithelial Cells Amorphous Sediment Urine Bacteria Urine Mucus 10/19/19 10/19/19 Range/Units 02:40 03:10 WBC (4.5-11.0) K/uL RBC (3.30-5.50) M/uL Hgb (12.0-15.0) g/dL Hct (36.0-48.0) % MCV (80-98) fL MCH (27-31) pg MCHC (32-36) % Plt Count (150-400) K/uL Neut % (Auto) (36-66) % Lymph % (Auto) (24-44) % [place] % (Auto) (2-6) % Eos % (Auto) (2-4) % Baso % (Auto) (0-1) % Puncture Site ABG pH (7.350-7.450) ABG pCO2 (35.0-42.0) mmHg ABG pO2 (75.0-100.0) mmHg ABG HCO3 (22.0-26.0) mmol/L ABG Total CO2 (21.0-25.0) mmol/L ABG O2 Saturation (95.0-98.0) % ABG O2 Content (15.0-23.0) %vol ABG Base Excess mm/L ABG Hemoglobin (12.0-16.0) g/dL ABG Oxyhemoglobin % ABG Carboxyhemoglobin (0.0-1.6) % ABG Methemoglobin % Mukesh Test O2 Delivery Device Oxygen Flow Rate L Sodium (140-148) mmol/L Potassium (3.6-5.2) mmol/L Chloride (100-108) mmol/L Carbon Dioxide (21-32) mmol/L Anion Gap (5.0-14.0) mmol/L BUN (7-18) mg/dL Creatinine (0.6-1.0) mg/dL Est Cr Clr Drug Dosing Estimated GFR (MDRD) (>60) Glucose (74-106) mg/dL Calcium (8.5-10.1) mg/dL Total Bilirubin (0.2-1.0) mg/dL AST (15-37) U/L ALT (12-78) U/L Alkaline Phosphatase (46-116) U/L Troponin I < 0.017 (0.000-0.056) ng/mL NT-Pro-B Natriuret Pep (5-125) pg/mL Total Protein (6.4-8.2) g/dL Albumin (3.4-5.0) g/dL Globulin (2.3-3.5) g/dL Albumin/Globulin Ratio (1.2-2.2) Urine Color Yellow (YELLOW) Urine Appearance Slightly cloudy A (CLEAR) Urine pH 5.5 (5.0-8.0) Ur Specific [place] 1.020 (1.008-1.030) Urine Protein Negative (NEGATIVE) mg/dL Urine Glucose (UA) Negative (NEGATIVE) mg/dL Urine Ketones Negative (NEGATIVE) mg/dL Urine Occult Blood Trace-intact H (NEGATIVE) Urine Nitrite Negative (NEGATIVE) Urine Bilirubin Negative (NEGATIVE) Urine Urobilinogen 0.2 (0.2-1.0) EU/dL Ur Leukocyte Esterase Negative (NEGATIVE) Urine RBC 0-5 (0-5) Urine WBC 0-5 (0-5) Ur Epithelial Cells Moderate Amorphous Sediment Not seen Urine Bacteria Moderate Urine Mucus Moderate Meds: Medications Discontinued Medications Generic Name Dose Route Start Last Admin Trade Name Freq PRN Reason Stop Dose Admin Acetaminophen 650 mg 10/19/19 05:52 10/21/19 11:35 Tylenol PO 650 mg Q4H PRN Administration Pain (Mild 1-3)/fever Atorvastatin Calcium 20 mg 10/19/19 21:00 10/20/19 20:56 Lipitor PO 20 mg BEDTIME KYE Administration Carvedilol 3.125 mg 10/19/19 09:00 10/20/19 09:25 Coreg PO 3.125 mg BID KYE Administration Carvedilol 6.25 mg 10/20/19 21:00 10/21/19 09:07 Coreg PO 6.25 mg BID KYE Administration Clopidogrel Bisulfate 75 mg 10/19/19 09:00 10/21/19 09:08 Plavix PO 75 mg DAILY KYE Administration Dextrose 15 gm 10/19/19 05:52 Glutose 15 PO ONETIME PRN Hypoglycemia Dextrose/Water 50 ml 10/19/19 05:52 Dextrose 50% In Water IV ONETIME PRN Hypoglycemia Enoxaparin Sodium 40 mg 10/19/19 05:52 10/19/19 06:26 Lovenox SUBCUT 40 mg DAILY KYE Administration Enoxaparin Sodium 40 mg 10/20/19 06:00 10/21/19 05:51 Lovenox SUBCUT 40 mg Q24H KYE Administration Furosemide 60 mg 10/19/19 02:09 10/19/19 02:29 Lasix IVPUSH 10/19/19 02:10 60 mg ONETIME ONE Administration Furosemide 40 mg 10/19/19 14:00 10/19/19 14:21 Lasix IV 10/19/19 14:01 40 mg ONETIME KYE Administration Furosemide 20 mg 10/20/19 12:00 10/20/19 13:32 Lasix IVPUSH 10/20/19 12:01 20 mg ONETIME ONE Administration Furosemide 40 mg 10/21/19 09:00 10/21/19 09:08 Lasix PO 40 mg DAILY KYE Administration Insulin Human Lispro 0 unit 10/19/19 07:00 10/21/19 13:58 Humalog SUBCUT Not Given QIDACANDBED [facility] Protocol Levothyroxine Sodium 50 mcg 10/19/19 07:30 10/21/19 08:30 Synthroid PO 50 mcg ACBRK KYE Administration Lisinopril 2.5 mg 10/19/19 09:00 10/21/19 09:09 Prinivil PO 2.5 mg DAILY KYE Administration Metformin HCl 500 mg 10/19/19 08:00 10/21/19 08:30 Glucophage PO 500 mg BIDMEALS KYE Administration Ondansetron HCl 4 mg 10/19/19 05:52 Zofran IV Q4H PRN Nausea/Vomiting Polyethylene Glycol 17 gm 10/19/19 05:52 Miralax PO DAILY PRN Constipation Potassium Chloride 40 meq 10/19/19 17:17 10/19/19 18:12 Klor-Con M20 PO 10/19/19 17:18 40 meq ONETIME ONE Administration Sodium Chloride 10 ml 10/19/19 05:52 Saline Flush FLUSH ASDIRECTED PRN Keep Vein Open - Radiology Interpretation Free Text/Narrative:: portable chest xray completed- ER read looks like diffuse pulmonary edema. Radiology read pending - Re-Assessments/Exams Free Text/Narrative Re-Assessment/Exam: 10/19/19 03:09 pt is not a sepsis risk at this time, she is afebrile, had sudden onset of respiratory distress, and has recent history of CHF exacerbation with fluid overload. RR and heart rate are most likely elevated due to fluid overload. Free Text/Narrative Re-Assessment/Exam: 10/19/19 03:19 patients sister (and SENIOR SYSTEMS SOFTWARE ENGINEER) state that they have an echo scheduled coming up. She doesn't remember the exact date but it scheduled on a Sunday Departure - Departure Time of Disposition: 03:14 Disposition: Refer to Observation Condition: Fair Clinical Impression: Elevated brain natriuretic peptide (BNP) level, Hx of cerebral infarction CHF (congestive heart failure) Qualifiers: Heart failure type: unspecified Heart failure chronicity: unspecified Qualified Code(s): I50.9 - Heart failure, unspecified Pulmonary edema Qualifiers: Chronicity: acute Qualified Code(s): J81.0 - Acute pulmonary edema - Discharge Information *PRESCRIPTION DRUG MONITORING PROGRAM REVIEWED*: No *COPY OF PRESCRIPTION DRUG MONITORING REPORT IN PATIENT PAMELA: No Sepsis Event Note - Focused Exam Date Exam was Performed: 10/19/19 Time Exam was Performed: 05:15 - Assessment/Plan Plan: plan to admit to hospital per Dr Claros
--- NOTE | 2019-10-19 05:51 | PCM.HP.2 ---
H&P History of Present Illness - General Date of Service: 10/19/19 Admit Problem/Dx: Admission Diagnosis/Problem Admission Diagnosis/Problem Congestive heart failure Source of Information: Patient, Family, Provider, RN Notes Reviewed History Limitations: Reports: Language Barrier (Expressive aphasia) - History of Present Illness Initial Comments - Free Text/Narative: Ms. Cota is a 54-year-old woman who was admitted through the emergency department to observation status with shortness of breath and hypoxia secondary to congestive heart failure. She has a known and longstanding history of congestive heart failure according to her sister who is with her today. She was hospitalized at this facility 3 months ago with an episode of congestive heart failure and responded well to diuretic therapy. She was hospitalized over the weekend so an echocardiogram was not obtainable. Recommendation at that time had been for outpatient echocardiogram, that has not yet been accomplished because of the current COVID situation. She apparently felt well throughout the day yesterday but last night began to develop symptoms of shortness of breath. She is very adamant that she has been following a strict 2 g sodium diet. Shortness of breath worsened and she awoke during the night with severe PND, unable to catch her breath. She was brought into the emergency department by EMS and was found to have significant elevation in respiratory rate and evidence of pulmonary edema on chest x-ray. She is received IV furosemide with good result and shortness of breath has improved. Sent symptoms of chest pain or pressure and denies symptoms of shortness of breath until last night. - Related Data Allergies/Adverse Reactions: Allergies Allergy/AdvReac Type Severity Reaction Status Date / Time latex Allergy Rash Verified 10/19/19 03:07 aspirin AdvReac Mild Stomach Verified 10/19/19 03:07 Upset codeine AdvReac Mild Vomiting Verified 10/19/19 03:07 hydromorphone [From Dilaudid] AdvReac Nausea and Verified 10/19/19 03:07 Vomiting Home Medications: Home Meds Clopidogrel [Plavix] 75 mg PO DAILY 10/13/13 [History] Levothyroxine [Synthroid] 50 mcg PO ACBRK 10/13/13 [History] Lisinopril 2.5 mg PO DAILY 10/13/13 [History] atorvaSTATin [Lipitor] 20 mg PO BEDTIME 10/13/13 [History] carvediloL [Coreg] 3.125 mg PO BID 10/13/13 [History] metFORMIN [Glucophage] 500 mg PO BIDMEALS 08/25/15 [History] Fexofenadine [Daphnie] 180 mg PO ASDIRECTED PRN 07/26/19 [History] Loperamide HCl [Anti-Diarrheal] 2 mg PO ASDIRECTED 07/26/19 [History] Furosemide 20 mg PO DAILY #30 tablet 07/27/19 [Rx] Past Medical History HEENT History: Reports: Allergic Rhinitis, Impaired Vision Cardiovascular History: Reports: Heart Failure, High Cholesterol, Hypertension, Prior Cardiac Arrest Respiratory History: Reports: Sleep Apnea Gastrointestinal History: Reports: Cholelithiasis Genitourinary History: Reports: UTI, Recurrent CHROMIUM PLATER History: Reports: Dysfunctional Uterine Bleeding, , Spontaneous Musculoskeletal History: Reports: Other (See Below) Other Musculoskeletal History: chronic pain on right side due to stroke Neurological History: Reports: CVA, Speech Problems, Other (See Below) Other Neuro History: right side deficit with residual pain Endocrine/Metabolic History: Reports: Diabetes, Type II, Hypothyroidism, Obesity /BMI 30+ Hematologic History: Reports: Blood Transfusion(s) Oncologic (Cancer) History: Reports: None - Infectious Disease History Infectious Disease History: Reports: Chicken Pox - Past Surgical History GI Surgical History: Reports: Cholecystectomy, EGD, Hernia, Abdominal, Hernia, Inguinal Female Surgical History: Reports: Breast Biopsy, D&C, Hysterectomy, Oophorectomy Oncologic Surgical History: Reports: Biopsy of Breast Social & Family History - Tobacco Use Smoking Status *Q: Never Smoker Second Hand Smoke Exposure: No - Caffeine Use Caffeine Use: Reports: Coffee - Recreational Drug Use Recreational Drug Use: No H&P Review of Systems - Review of Systems: Review Of Systems: See Below General: Reports: ROS unobtainable (Secondary to severe expressive a aphasia) Exam - Exam Exam: See Below - Vital Signs Vital Signs: Last Vital Signs Temp 97.7 F 10/19/19 04:22 Pulse 96 10/19/19 05:17 Resp 16 10/19/19 05:17 BP 105/74 10/19/19 05:17 Pulse Ox 98 10/19/19 05:17 Weight: 183 lb - Exam Quality Assessment: Supplemental Oxygen, DVT Prophylaxis General: Alert, Oriented, Cooperative, Mild Distress HEENT: Conjunctiva Clear, Hearing Intact, Mucosa Moist & [place], Normal Nasal Septum, Posterior Pharynx Clear, Pupils Equal Neck: Supple, Trachea Midline, +2 Carotid Pulse wo Bruit Lungs: Clear to Auscultation, Normal Respiratory Effort, Decreased Breath Sounds Cardiovascular: Regular Rate, Regular Rhythm, Normal S1, Normal S2, Systolic Murmur. No: Diastolic Murmur GI/Abdominal Exam: Soft, Non-Tender, No Organomegaly, No Distention Back Exam: Normal Inspection, Full Range of Motion Extremities: Non-Tender, No Pedal Edema Skin: Warm, Dry, Intact Neurological: Cranial Nerves Intact, Sensation Intact, Focal Deficit. No: Strength Equal Bilateral (Right lower extremity weakness), Normal Speech ( Expressive a aphasia) - Patient Data Lab Results Last 24 hrs: Laboratory Results - last 24 hr 10/19/19 10/19/19 10/19/19 Range/Units 02:37 02:37 02:38 WBC 13.8 H (4.5-11.0) K/uL RBC 4.77 (3.30-5.50) M/uL Hgb 11.8 L (12.0-15.0) g/dL Hct 39.5 (36.0-48.0) % MCV 83 (80-98) fL MCH 25 L (27-31) pg MCHC 30 L (32-36) % Plt Count 291 (150-400) K/uL Neut % (Auto) 77 H (36-66) % Lymph % (Auto) 17 L (24-44) % [place] % (Auto) 4 (2-6) % Eos % (Auto) 2 (2-4) % Baso % (Auto) 0 (0-1) % Puncture Site Lt radial ABG pH 7.411 (7.350-7.450) ABG pCO2 33.0 L (35.0-42.0) mmHg ABG pO2 76.5 (75.0-100.0) mmHg ABG HCO3 20.6 L (22.0-26.0) mmol/L ABG Total CO2 18.6 L (21.0-25.0) mmol/L ABG O2 Saturation 95.1 (95.0-98.0) % ABG O2 Content 15.6 (15.0-23.0) %vol ABG Base Excess -2.9 mm/L ABG Hemoglobin 11.8 L (12.0-16.0) g/dL ABG Oxyhemoglobin 93.1 % ABG Carboxyhemoglobin 1.3 (0.0-1.6) % ABG Methemoglobin 0.8 % Mukesh Test Pass O2 Delivery Device Nasal cannula Oxygen Flow Rate 2.0 L Sodium 140 (140-148) mmol/L Potassium 4.7 (3.6-5.2) mmol/L Chloride 105 (100-108) mmol/L Carbon Dioxide 22 (21-32) mmol/L Anion Gap 13.5 (5.0-14.0) mmol/L BUN 19 H (7-18) mg/dL Creatinine 1.0 (0.6-1.0) mg/dL Est Cr Clr Drug Dosing TNP Estimated GFR (MDRD) 58 L (>60) Glucose 153 H (74-106) mg/dL Calcium 8.7 (8.5-10.1) mg/dL Total Bilirubin 1.1 H D (0.2-1.0) mg/dL AST 26 (15-37) U/L ALT 24 (12-78) U/L Alkaline Phosphatase 119 H (46-116) U/L Troponin I (0.000-0.056) ng/mL NT-Pro-B Natriuret Pep 1986 H (5-125) pg/mL Total Protein 7.1 (6.4-8.2) g/dL Albumin 3.4 (3.4-5.0) g/dL Globulin 3.7 H (2.3-3.5) g/dL Albumin/Globulin Ratio 0.9 L (1.2-2.2) Urine Color (YELLOW) Urine Appearance (CLEAR) Urine pH (5.0-8.0) Ur Specific [place] (1.008-1.030) Urine Protein (NEGATIVE) mg/dL Urine Glucose (UA) (NEGATIVE) mg/dL Urine Ketones (NEGATIVE) mg/dL Urine Occult Blood (NEGATIVE) Urine Nitrite (NEGATIVE) Urine Bilirubin (NEGATIVE) Urine Urobilinogen (0.2-1.0) EU/dL Ur Leukocyte Esterase (NEGATIVE) Urine RBC (0-5) Urine WBC (0-5) Ur Epithelial Cells Amorphous Sediment Urine Bacteria Urine Mucus 10/19/19 10/19/19 Range/Units 02:40 03:10 WBC (4.5-11.0) K/uL RBC (3.30-5.50) M/uL Hgb (12.0-15.0) g/dL Hct (36.0-48.0) % MCV (80-98) fL MCH (27-31) pg MCHC (32-36) % Plt Count (150-400) K/uL Neut % (Auto) (36-66) % Lymph % (Auto) (24-44) % [place] % (Auto) (2-6) % Eos % (Auto) (2-4) % Baso % (Auto) (0-1) % Puncture Site ABG pH (7.350-7.450) ABG pCO2 (35.0-42.0) mmHg ABG pO2 (75.0-100.0) mmHg ABG HCO3 (22.0-26.0) mmol/L ABG Total CO2 (21.0-25.0) mmol/L ABG O2 Saturation (95.0-98.0) % ABG O2 Content (15.0-23.0) %vol ABG Base Excess mm/L ABG Hemoglobin (12.0-16.0) g/dL ABG Oxyhemoglobin % ABG Carboxyhemoglobin (0.0-1.6) % ABG Methemoglobin % Mukesh Test O2 Delivery Device Oxygen Flow Rate L Sodium (140-148) mmol/L Potassium (3.6-5.2) mmol/L Chloride (100-108) mmol/L Carbon Dioxide (21-32) mmol/L Anion Gap (5.0-14.0) mmol/L BUN (7-18) mg/dL Creatinine (0.6-1.0) mg/dL Est Cr Clr Drug Dosing Estimated GFR (MDRD) (>60) Glucose (74-106) mg/dL Calcium (8.5-10.1) mg/dL Total Bilirubin (0.2-1.0) mg/dL AST (15-37) U/L ALT (12-78) U/L Alkaline Phosphatase (46-116) U/L Troponin I < 0.017 (0.000-0.056) ng/mL NT-Pro-B Natriuret Pep (5-125) pg/mL Total Protein (6.4-8.2) g/dL Albumin (3.4-5.0) g/dL Globulin (2.3-3.5) g/dL Albumin/Globulin Ratio (1.2-2.2) Urine Color Yellow (YELLOW) Urine Appearance Slightly cloudy A (CLEAR) Urine pH 5.5 (5.0-8.0) Ur Specific [place] 1.020 (1.008-1.030) Urine Protein Negative (NEGATIVE) mg/dL Urine Glucose (UA) Negative (NEGATIVE) mg/dL Urine Ketones Negative (NEGATIVE) mg/dL Urine Occult Blood Trace-intact H (NEGATIVE) Urine Nitrite Negative (NEGATIVE) Urine Bilirubin Negative (NEGATIVE) Urine Urobilinogen 0.2 (0.2-1.0) EU/dL Ur Leukocyte Esterase Negative (NEGATIVE) Urine RBC 0-5 (0-5) Urine WBC 0-5 (0-5) Ur Epithelial Cells Moderate Amorphous Sediment Not seen Urine Bacteria Moderate Urine Mucus Moderate Result Diagrams: 10/19/19 02:37 10/19/19 02:37 Sepsis Event Note - Evaluation Sepsis Screening Result: Possible Sepsis Risk - Focused Exam Vital Signs: Vital Signs Temp Pulse Resp BP Pulse Ox 10/19/19 05:17 96 16 105/74 98 10/19/19 04:22 97.7 F 98 18 103/71 98 10/19/19 02:49 97.6 F 110 H 35 H 151/64 H 94 L 10/19/19 02:39 97.6 F 110 H 35 H 151/64 H 94 L 10/19/19 02:17 99.8 F 60 24 H 139/73 90 L Date Exam was Performed: 10/19/19 Time Exam was Performed: 05:43 *Q Meaningful Use (ADM) - VTE Risk Assess *Q Each Risk Factor Represents 1 Point: Age 41 - 59 years, Obesity ( BMI > 25 kg/m2 ), Congestive heart failure (CHF) Total Score 1 Point Risk Factors: 3 Each Risk Factor Represents 2 Points: None Total Score 2 Point Risk Factors: 0 Each Risk Factor Represents 3 Points: None Total Score 3 Point Risk Factors: 0 Each Risk Factor Represents 5 Points: None Total Score 5 Point Risk Factors: 0 Venous Thromboembolism Risk Factor Score *Q: 3 Problem List Initiated/Reviewed/Updated: Yes Orders Last 24hrs: Active Orders 24 hr Category Date Time Status Patient Status Manage Transfer [TRANSFER] Routine ADT 10/19/19 05:27 Active EKG Documentation Completion [RC] ASDIRECTED Care 05/31/20 02:06 Active Urinary Catheter Assessment [RC] ASDIRECTED Care 10/19/19 02:29 Inactive Chest 1V Frontal [CR] Stat Exams 10/19/19 02:04 Taken Resuscitation Status Routine Resus Stat 10/19/19 05:30 Ordered EKG 12 Lead [EK] Routine Ther 10/19/19 02:04 Ordered Assessment/Plan Comment:: ASSESSMENT AND PLAN CONGESTIVE HEART FAILURE-significant shortness of breath and hypoxia, with evidence of pulmonary edema and cardiac enlargement noted on echocardiogram. She is currently treated with appropriate regimen including beta-jazmyne, PB inhibitor, and daily diuretic. She felt well until last night, then developed shortness of breath prior to going to bed and woke up with severe shortness of breath and hypoxia. She has improved in the emergency department after receiving IV furosemide. -Furosemide 40 mg IV later today -Reassess in a.m. -Repeat BMP later today and in a.m. -Echocardiogram tomorrow TYPE 2 DIABETES MELLITUS -Continue usual dose of metformin -Low-dose sliding scale Humalog -4 times daily glucometers HISTORY OF CVA-with residual expressive a aphasia and right-sided weakness MAINTENANCE ISSUES -DVT prophylaxis; Lovenox 40 mg subcu daily -GI prophylaxis; not indicated -Armenta catheter; not indicated -Nutrition; 2 g sodium consistent carb diet -Nicotinic dependence; not required CODE STATUS-FULL CODE ADMISSION STATUS-this patient will be admitted to observation status, expect no more than a one night hospital stay for evaluation and management of problems as outlined above. DISPOSITION-anticipate discharge to home after the hospital stay. PRIMARY CARE PROVIDER-Drs. Goldberg - Mortality Measure Prognosis:: Good
[2019-10-19] MEDS ORDERED: Enoxaparin 40 MG/0.4 ML Syringe SUBCUT SCH (05:52)
[2019-10-19] MEDS ORDERED: 50% Dextrose in Water 50 ML Syringe IV PRN (05:52)
[2019-10-19] MEDS ORDERED: Polyethylene Glycol 3350 Powder 17 GM Packet PO PRN (05:52)
[2019-10-19] MEDS ORDERED: Sodium Chloride 0.9% 10 ML Syringe FLUSH PRN (05:52)
[2019-10-19] MEDS ORDERED: Glucose Gel 15 GM in 37.5 GM Tube PO PRN (05:52)
[2019-10-19] MEDS ORDERED: Ondansetron 4 MG/2 ML SDV IV PRN (05:52)
[2019-10-19] MEDS: Levothyroxine 50 MCG Tab PO SCH (08:05)
[2019-10-19] MEDS: Insulin Lispro 100 Unit/ML 3 ML KwikPen SUBCUT SCH ×4 (08:05→21:29)
[2019-10-19] MEDS: metFORMIN 500 MG Tab PO SCH ×2 (08:05→18:11)
[2019-10-19] MEDS: Lisinopril 2.5 MG Tab PO SCH (10:30)
[2019-10-19] MEDS: Clopidogrel 75 MG Tab PO SCH (10:32)
[2019-10-19] MEDS: Carvedilol 3.125 MG Tab PO SCH ×2 (10:32→20:40)
[2019-10-19] MEDS: Acetaminophen 325 MG Tab PO PRN (10:35)
[2019-10-19] MEDS ORDERED: Furosemide 40 MG/4 ML VIAL IV SCH (14:00)
[2019-10-19] MEDS ORDERED: Potassium Chloride 20 MEQ Tab.ER PO ONE (17:17)
[2019-10-19] MEDS: atorvaSTATin 20 MG Tab PO SCH (20:40)
[2019-10-20] MEDS: Enoxaparin 40 MG/0.4 ML Syringe SUBCUT SCH (05:52)
[2019-10-20] MEDS: Insulin Lispro 100 Unit/ML 3 ML KwikPen SUBCUT SCH ×4 (08:51→20:54)
[2019-10-20] MEDS: metFORMIN 500 MG Tab PO SCH ×2 (09:24→17:42)
[2019-10-20] MEDS: Levothyroxine 50 MCG Tab PO SCH (09:24)
--- NOTE | 2019-10-20 09:24 | CR ---
CHEST: Portable 10/19/2019 at 2:20 AM CLINICAL HISTORY:SOB COMPARISON:07/26/2019 FINDINGS: Heart is mildly enlarged. Pulmonary vascularity is cephalized and poorly defined. There is diffuse bilateral infiltrate. There are no effusions. Impression: Findings most consistent with CHF and mild pulmonary edema.
[2019-10-20] MEDS: Lisinopril 2.5 MG Tab PO SCH (09:25)
[2019-10-20] MEDS: Carvedilol 3.125 MG Tab PO SCH (09:25)
[2019-10-20] MEDS: Clopidogrel 75 MG Tab PO SCH (09:25)
--- NOTE | 2019-10-20 11:44 | PCM.PN ---
- General Info Date of Service: 10/20/19 Subjective Update: No acute events overnight. Excellent response to diuresis yesterday. Still feels a little short of breath and has slight tightness in her chest but no chest pain. Appetite is good. Breathing is better than yesterday but not back to baseline. No fevers or cough. Did not sleep well because of commotion outside of her room last night. Echocardiogram today showed an ejection fraction between 25 and 30% as well as severe diastolic dysfunction and severe mitral regurgitation. Functional Status: Reports: Pain Controlled, Tolerating Diet - Review of Systems Pulmonary: Reports: Shortness of Breath (mild) - Patient Data Vitals - Most Recent: Last Vital Signs Temp 37.1 C 10/20/19 10:57 Pulse 98 10/20/19 10:57 Resp 16 10/20/19 10:57 BP 109/57 L 10/20/19 10:57 Pulse Ox 96 10/20/19 10:57 Weight - Most Recent: 80.467 kg I&O - Last 24 Hours: Intake & Output 10/19/19 10/20/19 10/20/19 22:59 06:59 14:59 Intake Total 1220 480 Output Total 1350 350 800 Balance -130 -350 -320 Lab Results Last 24 Hours: Laboratory Results - last 24 hr 10/19/19 10/20/19 10/20/19 Range/Units 16:56 04:00 04:00 WBC 9.5 (4.5-11.0) K/uL RBC 4.41 (3.30-5.50) M/uL Hgb 11.0 L (12.0-15.0) g/dL Hct 36.2 (36.0-48.0) % MCV 82 (80-98) fL MCH 25 L (27-31) pg MCHC 30 L (32-36) % Plt Count 243 (150-400) K/uL Neut % (Auto) 67 H (36-66) % Lymph % (Auto) 23 L (24-44) % [place] % (Auto) 8 H (2-6) % Eos % (Auto) 3 (2-4) % Baso % (Auto) 0 (0-1) % Sodium 142 (140-148) mmol/L Potassium 3.6 (3.6-5.2) mmol/L Chloride 101 (100-108) mmol/L Carbon Dioxide 30 (21-32) mmol/L Anion Gap 10.7 (5.0-14.0) mmol/L BUN 17 (7-18) mg/dL Creatinine 1.0 (0.6-1.0) mg/dL Est Cr Clr Drug Dosing 48.53 mL/min Estimated GFR (MDRD) 58 L (>60) Glucose 119 H (74-106) mg/dL Calcium 9.2 (8.5-10.1) mg/dL Magnesium (1.8-2.4) mg/dL TSH, Ultra Sensitive 4.469 H (0.358-3.740) uIU/mL 10/20/19 Range/Units 04:00 WBC (4.5-11.0) K/uL RBC (3.30-5.50) M/uL Hgb (12.0-15.0) g/dL Hct (36.0-48.0) % MCV (80-98) fL MCH (27-31) pg MCHC (32-36) % Plt Count (150-400) K/uL Neut % (Auto) (36-66) % Lymph % (Auto) (24-44) % [place] % (Auto) (2-6) % Eos % (Auto) (2-4) % Baso % (Auto) (0-1) % Sodium 141 (140-148) mmol/L Potassium 3.8 (3.6-5.2) mmol/L Chloride 104 (100-108) mmol/L Carbon Dioxide 29 (21-32) mmol/L Anion Gap 8.5 (5.0-14.0) mmol/L BUN 17 (7-18) mg/dL Creatinine 1.1 H (0.6-1.0) mg/dL Est Cr Clr Drug Dosing 44.12 mL/min Estimated GFR (MDRD) 52 L (>60) Glucose 117 H (74-106) mg/dL Calcium 9.1 (8.5-10.1) mg/dL Magnesium 1.9 (1.8-2.4) mg/dL TSH, Ultra Sensitive (0.358-3.740) uIU/mL Med Orders - Current: Current Medications Acetaminophen (Tylenol) 650 mg PO Q4H PRN PRN Reason: Pain (Mild 1-3)/fever Last Admin: 10/19/19 10:35 Dose: 650 mg Atorvastatin Calcium (Lipitor) 20 mg PO BEDTIME [facility] Last Admin: 10/19/19 20:40 Dose: 20 mg Clopidogrel Bisulfate (Plavix) 75 mg PO DAILY [facility] Last Admin: 10/20/19 09:25 Dose: 75 mg Dextrose (Glutose 15) 15 gm PO ONETIME PRN PRN Reason: Hypoglycemia Dextrose/Water (Dextrose 50% In Water) 50 ml IV ONETIME PRN PRN Reason: Hypoglycemia Enoxaparin Sodium (Lovenox) 40 mg SUBCUT Q24H [facility] Last Admin: 10/20/19 05:52 Dose: 40 mg Insulin Human Lispro (Humalog) 0 unit SUBCUT QIDACANDBED [facility]; Protocol Last Admin: 10/20/19 11:30 Dose: Not Given Levothyroxine Sodium (Synthroid) 50 mcg PO ACBRK [facility] Last Admin: 10/20/19 09:24 Dose: 50 mcg Lisinopril (Prinivil) 2.5 mg PO DAILY [facility] Last Admin: 10/20/19 09:25 Dose: 2.5 mg Metformin HCl (Glucophage) 500 mg PO BIDMEALS [facility] Last Admin: 10/20/19 09:24 Dose: 500 mg Ondansetron HCl (Zofran) 4 mg IV Q4H PRN PRN Reason: Nausea/Vomiting Polyethylene Glycol (Miralax) 17 gm PO DAILY PRN PRN Reason: Constipation Sodium Chloride (Saline Flush) 10 ml FLUSH ASDIRECTED PRN PRN Reason: Keep Vein Open Discontinued Medications Carvedilol (Coreg) 3.125 mg PO BID [facility] Last Admin: 10/20/19 09:25 Dose: 3.125 mg Enoxaparin Sodium (Lovenox) 40 mg SUBCUT DAILY [facility] Last Admin: 10/19/19 06:26 Dose: 40 mg Furosemide (Lasix) 60 mg IVPUSH ONETIME ONE Stop: 10/19/19 02:10 Last Admin: 10/19/19 02:29 Dose: 60 mg Furosemide (Lasix) 40 mg IV ONETIME [facility] Stop: 10/19/19 14:01 Last Admin: 10/19/19 14:21 Dose: 40 mg Potassium Chloride (Klor-Con M20) 40 meq PO ONETIME ONE Stop: 10/19/19 17:18 Last Admin: 10/19/19 18:12 Dose: 40 meq - Exam Quality Assessment: No: Supplemental Oxygen General: Alert, Oriented, Cooperative, No Acute Distress Neck: JVD Lungs: Clear to Auscultation, Normal Respiratory Effort Cardiovascular: Irregular Rhythm, Tachycardia GI/Abdominal Exam: Soft, No Distention Extremities: No Pedal Edema Skin: Warm, Dry Psy/Mental Status: Alert, Normal Affect Sepsis Event Note - Evaluation Sepsis Screening Result: No Definite Risk - Focused Exam Vital Signs: Vital Signs Temp Pulse Pulse Pulse Resp BP BP 10/20/19 10:57 37.1 C 98 16 109/57 L 10/20/19 09:25 68 128/55 L 10/20/19 08:27 36.9 C 68 24 H 128/55 L 10/20/19 07:24 10/20/19 06:05 10/20/19 02:48 35.7 C L 54 L 16 107/73 10/20/19 01:16 Pulse Ox Pulse Ox 10/20/19 10:57 96 10/20/19 09:25 10/20/19 08:27 96 10/20/19 07:24 96 10/20/19 06:05 95 10/20/19 02:48 95 10/20/19 01:16 92 L Date Exam was Performed: 10/20/19 Time Exam was Performed: 16:01 - Problem List Review Problem List Initiated/Reviewed/Updated: Yes - My Orders Last 24 Hours: My Active Orders 10/20/19 11:42 Furosemide [Lasix] 20 mg IVPUSH ONETIME ONE 10/20/19 11:43 T4 FREE [CHEM] Routine 10/20/19 21:00 carvediloL [Coreg] 6.25 mg PO BID 10/21/19 05:00 BASIC METABOLIC PANEL,BMP [CHEM] Timed 10/21/19 09:00 Furosemide [Lasix] 40 mg PO DAILY - Plan Plan:: ASSESSMENT AND PLAN CONGESTIVE HEART FAILURE-combined systolic and diastolic. Doing better with diuresis but still has some evidence for excess volume with mild JVD. Unknown baseline ejection fraction. She does have some borderline tachycardia. -Furosemide 40 mg IV x1 this morning and transition to oral tomorrow morning -Increase carvedilol tonight -Continue PB inhibitor -Reassess volume status in a.m. TYPE 2 DIABETES MELLITUS-stable. 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 DISPOSITION-anticipate discharge to home after the hospital stay. Oumar Brand MD
[2019-10-20] MEDS ORDERED: Furosemide 20 MG/2 ML VIAL IVPUSH ONE (12:00)
[2019-10-20] MEDS: Carvedilol 6.25 MG Tab PO SCH (20:56)
[2019-10-20] MEDS: atorvaSTATin 20 MG Tab PO SCH (20:56)
[2019-10-21] MEDS: Acetaminophen 325 MG Tab PO PRN ×2 (04:34→11:35)
[2019-10-21] MEDS: Enoxaparin 40 MG/0.4 ML Syringe SUBCUT SCH (05:51)
[2019-10-21] MEDS: Insulin Lispro 100 Unit/ML 3 ML KwikPen SUBCUT SCH ×2 (08:05→13:58)
[2019-10-21] MEDS: Levothyroxine 50 MCG Tab PO SCH (08:30)
[2019-10-21] MEDS: metFORMIN 500 MG Tab PO SCH (08:30)
[2019-10-21] MEDS ORDERED: Furosemide 40 MG Tab PO SCH (09:00)
[2019-10-21] MEDS: Carvedilol 6.25 MG Tab PO SCH (09:07)
[2019-10-21] MEDS: Clopidogrel 75 MG Tab PO SCH (09:08)
[2019-10-21] MEDS: Lisinopril 2.5 MG Tab PO SCH (09:09)
[2019-10-21 11:19] VITALS: BP 82/63; PULSE 96
--- NOTE | 2019-10-21 12:21 | PCM.DCSUM1 ---
Discharge Summary - Hospital Course Brief History: 54-year-old female with history of congestive heart failure, CVA with residual expressive aphasia and type 2 diabetes mellitus who presented with shortness of breath. She was admitted for management of congestive heart failure. Diagnosis: Stroke: No - Discharge Data Discharge Date: 10/21/19 Discharge Disposition: Home, Self-Care 01 Condition: Good - Referral to Home Health Primary Care Physician: PCP None - Patient Summary/Data Hospital Course: Zuleyma presented to the emergency room with fairly acute onset shortness of breath. Work-up in the emergency room was consistent with congestive heart failure. No evidence for infection. She received 60 mg of IV furosemide in the emergency room and was admitted for further management. She responded well to the initial dose of furosemide and diuresed quite well. Symptoms did improve but she did remain shortness of breath and still had some chest tightness. She received an additional dose of furosemide later in the day with additional improvement. By the next day she was feeling better but still had some evidence for volume overload. She received an additional dose of IV diuresis. Kidney function remained stable. She has not required any supplemental oxygen. We did obtain an echocardiogram which showed systolic dysfunction with an ejection fraction between 25 and 30%. She had severe mitral regurgitation as well as grade 3 diastolic dysfunction. She has transitioned to oral diuretics. We did also increase her carvedilol to 6.25 mg. She seems to be well compensated at this time with no evidence for ongoing volume overload. She has been up and walking around with only minimal shortness of breath. She feels well enough to go home at this point. She would benefit from early follow-up and recheck of her congestive heart failure. - Patient Instructions Diet: Heart Healthy Diet Activity: As Tolerated Showering/Bathing: May Shower Notify Provider of: Fever, Increased Pain Other/Special Instructions: 1. You were in the hospital for management of congestive heart failure due to both systolic and diastolic dysfunction. Your condition has been improving with diuretic therapy. I did make 2 medication changes as listed below to help manage your congestive heart failure as an outpatient. If you have a scale at home you should weigh yourself every day. You should alert your primary care physician if you gain more than 2 pounds in 1 day or several pounds over a few days as this can be a sign of fluid buildup and worsening of your congestive heart failure. 2. I have increased your furosemide to 40 mg daily and your carvedilol to 6.25 mg twice daily. New prescriptions for both of these medications have been sent to your pharmacy. 3. Follow up with Amol Barone as scheduled for recheck after your hospital stay - Discharge Plan *PRESCRIPTION DRUG MONITORING PROGRAM REVIEWED*: No *COPY OF PRESCRIPTION DRUG MONITORING REPORT IN PATIENT PAMELA: No Prescriptions/Med Rec: carvediloL [Coreg] 6.25 mg PO BID #60 tablet Furosemide [Lasix] 40 mg PO DAILY #30 tablet Home Medications: Home Meds Clopidogrel [Plavix] 75 mg PO DAILY 10/13/13 [History] Levothyroxine [Synthroid] 50 mcg PO ACBRK 10/13/13 [History] Lisinopril 2.5 mg PO DAILY 10/13/13 [History] atorvaSTATin [Lipitor] 20 mg PO BEDTIME 10/13/13 [History] metFORMIN [Glucophage] 500 mg PO BIDMEALS 08/25/15 [History] Fexofenadine [Daphnie] 180 mg PO ASDIRECTED PRN 07/26/19 [History] Loperamide HCl [Anti-Diarrheal] 2 mg PO ASDIRECTED 07/26/19 [History] Furosemide [Lasix] 40 mg PO DAILY #30 tablet 10/21/19 [Rx] carvediloL [Coreg] 6.25 mg PO BID #60 tablet 10/21/19 [Rx] Oxygen Therapy Mode: Room Air Patient Handouts: Heart Failure, Self Care, [id number] Referrals: Amol Barone, CLARA [Nurse Practitioner] - 10/30/19 1:00 pm - Discharge Summary/Plan Comment DC Time >30 min.: No - Patient Data Vitals - Most Recent: Last Vital Signs Temp 36.7 C 10/21/19 11:00 Pulse 96 10/21/19 11:00 Resp 18 10/21/19 11:00 BP 82/63 L 10/21/19 11:00 Pulse Ox 98 10/21/19 11:00 Weight - Most Recent: 80.286 kg I&O - Last 24 hours: Intake & Output 10/20/19 10/21/19 10/21/19 22:59 06:59 14:59 Intake Total 012 323 7405 Output Total 725 1200 900 Balance 215 -300 610 Lab Results - Last 24 hrs: Laboratory Results - last 24 hr 10/21/19 Range/Units 04:55 Sodium 140 (140-148) mmol/L Potassium 4.2 (3.6-5.2) mmol/L Chloride 103 (100-108) mmol/L Carbon Dioxide 31 (21-32) mmol/L Anion Gap 6.3 (5.0-14.0) mmol/L BUN 19 H (7-18) mg/dL Creatinine 1.0 (0.6-1.0) mg/dL Est Cr Clr Drug Dosing 48.53 mL/min Estimated GFR (MDRD) 58 L (>60) Glucose 128 H (74-106) mg/dL Calcium 8.8 (8.5-10.1) mg/dL Med Orders - Current: Current Medications Acetaminophen (Tylenol) 650 mg PO Q4H PRN PRN Reason: Pain (Mild 1-3)/fever Last Admin: 10/21/19 11:35 Dose: 650 mg Atorvastatin Calcium (Lipitor) 20 mg PO BEDTIME [facility] Last Admin: 10/20/19 20:56 Dose: 20 mg Carvedilol (Coreg) 6.25 mg PO BID [facility] Last Admin: 10/21/19 09:07 Dose: 6.25 mg Clopidogrel Bisulfate (Plavix) 75 mg PO DAILY [facility] Last Admin: 10/21/19 09:08 Dose: 75 mg Dextrose (Glutose 15) 15 gm PO ONETIME PRN PRN Reason: Hypoglycemia Dextrose/Water (Dextrose 50% In Water) 50 ml IV ONETIME PRN PRN Reason: Hypoglycemia Enoxaparin Sodium (Lovenox) 40 mg SUBCUT Q24H [facility] Last Admin: 10/21/19 05:51 Dose: 40 mg Furosemide (Lasix) 40 mg PO DAILY [facility] Last Admin: 10/21/19 09:08 Dose: 40 mg Insulin Human Lispro (Humalog) 0 unit SUBCUT QIDACANDBED [facility]; Protocol Last Admin: 10/21/19 08:05 Dose: Not Given Levothyroxine Sodium (Synthroid) 50 mcg PO ACBRK [facility] Last Admin: 10/21/19 08:30 Dose: 50 mcg Lisinopril (Prinivil) 2.5 mg PO DAILY [facility] Last Admin: 10/21/19 09:09 Dose: 2.5 mg Metformin HCl (Glucophage) 500 mg PO BIDMEALS [facility] Last Admin: 10/21/19 08:30 Dose: 500 mg Ondansetron HCl (Zofran) 4 mg IV Q4H PRN PRN Reason: Nausea/Vomiting Polyethylene Glycol (Miralax) 17 gm PO DAILY PRN PRN Reason: Constipation Sodium Chloride (Saline Flush) 10 ml FLUSH ASDIRECTED PRN PRN Reason: Keep Vein Open Discontinued Medications Carvedilol (Coreg) 3.125 mg PO BID [facility] Last Admin: 10/20/19 09:25 Dose: 3.125 mg Enoxaparin Sodium (Lovenox) 40 mg SUBCUT DAILY [facility] Last Admin: 10/19/19 06:26 Dose: 40 mg Furosemide (Lasix) 60 mg IVPUSH ONETIME ONE Stop: 10/19/19 02:10 Last Admin: 10/19/19 02:29 Dose: 60 mg Furosemide (Lasix) 40 mg IV ONETIME [facility] Stop: 10/19/19 14:01 Last Admin: 10/19/19 14:21 Dose: 40 mg Furosemide (Lasix) 20 mg IVPUSH ONETIME ONE Stop: 10/20/19 12:01 Last Admin: 10/20/19 13:32 Dose: 20 mg Potassium Chloride (Klor-Con M20) 40 meq PO ONETIME ONE Stop: 10/19/19 17:18 Last Admin: 10/19/19 18:12 Dose: 40 meq
== END 2019-10-21 15:30 | disposition home or self-care (01) ==
LOC: JP.ED 01:51 → JP.MS 05:27
PROVIDERS: ADMIT Hospitalist; ATTEND Internal Medicine
DX: I11.0 Hypertensive heart disease with heart failure (principal); I50.41 Acute combined systolic (congestive) and diastolic (congestive) heart failure; E78.00 Pure hypercholesterolemia, unspecified; E11.9 Type 2 diabetes mellitus without complications; E03.9 Hypothyroidism, unspecified; J81.0 Acute pulmonary edema; R79.89 Other specified abnormal findings of blood chemistry; E66.9 Obesity, unspecified; Z88.5 Allergy status to narcotic agent; Z88.8 Allergy status to other drugs, medicaments and biological substances; Z91.040 Latex allergy status; Z79.899 Other long term (current) drug therapy; Z86.73 Personal history of transient ischemic attack (TIA), and cerebral infarction without residual deficits
CPT/HCPCS: 36415; 36600; 71045; 80048; 80053; 81001; 82803; 82962; 83735; 83880; 84439; 84443; 84484; 85025; 93005; 93306; 94762; 96372; 96374; 96376; 99285; A9270; G0378; J1650; J1940; J1815

== ENCOUNTER 2020-08-02 00:15 | Emergency (ER) | payer MEDICAID ==
[2020-08-02 00:36] VITALS: BP 107/75; PULSE 107
--- NOTE | 2020-08-02 00:36 | EDM.PDOC ---
ED HPI GENERAL MEDICAL PROBLEM - General Chief Complaint: Respiratory Problem Stated Complaint: [facility] Time Seen by Provider: 08/02/20 00:28 Source of Information: Reports: EMS History Limitations: Reports: Other (Patient is verbally delayed after having a cerebral infarct) - History of Present Illness INITIAL COMMENTS - FREE TEXT/NARRATIVE: Zuleyma is a 55-year-old female who was in her usual state of health until she was eating chicken salad this evening around midnight. Apparently the food had too much salt on it causing her to acutely become short of breath. She was also gagging and retching. 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 anoxic brain injury - Related Data Allergies Allergy/AdvReac Type Severity Reaction Status Date / Time latex Allergy Rash Verified 08/02/20 00:30 aspirin AdvReac Mild Stomach Verified 08/02/20 00:30 Upset codeine AdvReac Mild Vomiting Verified 08/02/20 00:30 hydromorphone [From Dilaudid] AdvReac Nausea and Verified 08/02/20 00:30 Vomiting Home Meds: Home Meds Clopidogrel [Plavix] 75 mg PO DAILY 10/13/13 [History] Levothyroxine [Synthroid] 50 mcg PO ACBRK 10/13/13 [History] Lisinopril 2.5 mg PO DAILY 10/13/13 [History] atorvaSTATin [Lipitor] 20 mg PO BEDTIME 10/13/13 [History] metFORMIN [Glucophage] 500 mg PO BIDMEALS 08/25/15 [History] Fexofenadine [Daphnie] 180 mg PO ASDIRECTED PRN 07/26/19 [History] Furosemide [Lasix] 40 mg PO DAILY #30 tablet 10/21/19 [Rx] carvediloL [Coreg] 3.125 mg PO BID 05/20/20 [History] Latanoprost/Pf [Latanoprost 0.005% Eye Drop] 1 drop EYEBOTH BEDTIME 08/02/20 [History] Past Medical History HEENT History: Reports: Allergic Rhinitis, Impaired Vision Cardiovascular History: Reports: Heart Failure, High Cholesterol, Hypertension, Prior Cardiac Arrest Respiratory History: Reports: Sleep Apnea Gastrointestinal History: Reports: Cholelithiasis Genitourinary History: Reports: UTI, Recurrent [employer] History: Reports: Dysfunctional Uterine Bleeding, , Spontaneous Musculoskeletal History: Reports: Other (See Below) Other Musculoskeletal History: chronic pain on right side due to stroke Neurological History: Reports: CVA, Speech Problems, Other (See Below) Other Neuro History: right side deficit with residual pain Endocrine/Metabolic History: Reports: Diabetes, Type II, Hypothyroidism, Obesity/BMI 30+ Hematologic History: Reports: Blood Transfusion(s) Oncologic (Cancer) History: Reports: None - Infectious Disease History Infectious Disease History: Reports: Chicken Pox - Past Surgical History GI Surgical History: Reports: Cholecystectomy, EGD, Hernia, Abdominal, Hernia, Inguinal Female Surgical History: Reports: Breast Biopsy, D&C, Hysterectomy, Oophorectomy Oncologic Surgical History: Reports: Biopsy of Breast Social & Family History - Family History Family Medical History: No Pertinent Family History - Caffeine Use Caffeine Use: Reports: Coffee ED ROS GENERAL - Review of Systems Review Of Systems: Unable To Obtain Reason Not Obtained: ROS is limited by the patient's inability to verbalize HEENT: Reports: Other (I again) Respiratory: Reports: Shortness of Breath, Cough Cardiovascular: Reports: No Symptoms Endocrine: Reports: No Symptoms GI/Abdominal: Reports: No Symptoms, Nausea (And gagging) : Reports: No Symptoms Musculoskeletal: Reports: No Symptoms Skin: Reports: No Symptoms Neurological: Reports: No Symptoms Psychiatric: Reports: Anxiety Hematologic/Lymphatic: Reports: No Symptoms Immunologic: Reports: No Symptoms ED EXAM, GENERAL - Physical Exam Exam: See Below Exam Limited By: Other (Patient is for the most part nonverbal) General Appearance: Alert, Anxious, Mild Distress Throat/Mouth: Normal Inspection, Normal Oropharynx Head: Atraumatic, Normocephalic Neck: Normal Inspection, Supple Respiratory/Chest: No Respiratory Distress, Lungs Clear, Normal Breath Sounds. No: Rales, Rhonchi, Wheezing Cardiovascular: Normal Peripheral Pulses, Regular Rate, Rhythm, No Murmur GI/Abdominal: Normal Bowel Sounds, Soft, Non-Tender Back Exam: Full Range of Motion Neurological: Alert, No Motor/Sensory Deficits Psychiatric: Anxious Skin Exam: Warm, Dry Lymphatic: No Adenopathy Course - Vital Signs Last Recorded V/S: Last Vital Signs Temp 36.4 C 08/02/20 00:34 Pulse 107 H 08/02/20 00:34 Resp 22 H 08/02/20 00:34 BP 107/75 08/02/20 00:34 Pulse Ox 95 08/02/20 00:34 - Orders/Labs/Meds Orders: Active Orders 24 hr Category Date Time Status RT Aerosol Therapy [RC] ASDIRECTED Care 08/02/20 00:47 Active Chest 1V Frontal [CR] Stat Exams 08/02/20 00:29 Taken Labs: Laboratory Tests 08/02/20 08/02/20 Range/Units 00:35 00:35 WBC 10.3 (4.5-11.0) K/uL RBC 4.95 (3.30-5.50) M/uL Hgb 12.9 (12.0-15.0) g/dL Hct 41.3 (36.0-48.0) % MCV 83 (80-98) fL MCH 26 L (27-31) pg MCHC 31 L (32-36) % Plt Count 278 (150-400) K/uL Neut % (Auto) 65 (36-66) % Lymph % (Auto) 24 (24-44) % [place] % (Auto) 7 H (2-6) % Eos % (Auto) 3 (2-4) % Baso % (Auto) 1 (0-1) % Sodium 144 (140-148) mmol/L Potassium 3.7 (3.6-5.2) mmol/L Chloride 102 (100-108) mmol/L Carbon Dioxide 30 (21-32) mmol/L Anion Gap 12.4 (5.0-14.0) mmol/L BUN 13 (7-18) mg/dL Creatinine 0.9 (0.6-1.0) mg/dL Est Cr Clr Drug Dosing 53.30 mL/min Estimated GFR (MDRD) > 60 (>60) Glucose 140 H (74-106) mg/dL Calcium 9.7 (8.5-10.1) mg/dL Total Bilirubin 0.4 D (0.2-1.0) mg/dL AST 22 (15-37) U/L ALT 29 (12-78) U/L Alkaline Phosphatase 118 H (46-116) U/L Troponin I 0.025 (0.000-0.056) ng/mL NT-Pro-B Natriuret Pep 900 H (5-125) pg/mL Total Protein 7.0 (6.4-8.2) g/dL Albumin 3.3 L (3.4-5.0) g/dL Globulin 3.7 H (2.3-3.5) g/dL Albumin/Globulin Ratio 0.9 L (1.2-2.2) Meds: Medications Discontinued Medications Generic Name Dose Route Start Last Admin Trade Name Surinder PRN Reason Stop Dose Admin Albuterol/Ipratropium 3 ml 08/02/20 00:47 08/02/20 00:52 Albuterol/Ipratropium 3.0-0.5 Mg/3 Ml Neb Soln NEB 08/02/20 00:48 3 ml ONETIME ONE Administration - Radiology Interpretation Free Text/Narrative:: I reviewed the chest one-view portable on the patient. There is no evidence for acute infiltrates. Normal cardiac silhouette. - Re-Assessments/Exams Free Text/Narrative Re-Assessment/Exam: 08/02/20 01:19 I reviewed the patient's labs showing a normal CBC and comprehensive metabolic panel except for a glucose of 140. Her proBNP is elevated at 900. Her troponin is normal at 0.027. The chest x-ray was unremarkable for any acute findings. She does have moderate cardiomegaly. There is no evidence for congestive heart failure at this time. I suspect that the patient has a food bolus impaction. We did try a DuoNeb for her breathing without improvement. She then showed mechanical cola and had sudden relief of her symptoms. This would be consistent with the esophageal food bolus impaction. We will observe her for short period of time and have her drink some water to see if she has any recurrence of symptoms. If not, we will discharge the patient home in satisfactory condition. She should follow-up with her primary care provider as needed and they can discuss timing of an endoscopy if there is worry of Schatzki's ring or esophageal web. Departure - Departure Time of Disposition: 01:23 Disposition: Home, Self-Care 01 Clinical Impression: Impacted esophageal foreign body Qualifiers: Encounter type: initial encounter Qualified Code(s): T18.108A - Unspecified foreign body in esophagus causing other injury, initial encounter Dyspnea Qualifiers: Dyspnea type: shortness of breath Qualified Code(s): R06.02 - Shortness of breath - Discharge Information Instructions: Swallowed Foreign Body, Adult Referrals: PCP,None [Primary Care Provider] - Forms: ED Department Discharge Care Plan Goals: Make sure that you chew your food thoroughly before swallowing it. If this recurs we would need to do an endoscopy to see if there is any narrowing in the esophagus or the development of any either esophageal web or Schatzki's ring which is scar tissue in the esophagus. I would recommend following up with your primary care provider as needed. Sepsis Event Note (ED) - Focused Exam Vital Signs: Vital Signs Temp Pulse Resp BP Pulse Ox 08/02/20 00:34 36.4 C 107 H 22 H 107/75 95 - Problem List & Annotations (1) Impacted esophageal foreign body SNOMED Code(s): 02484094 Code(s): T18.108A - UNSP FOREIGN BODY IN ESOPHAGUS CAUSING OTH INJURY, INIT Status: Acute Priority: High Current Visit: Yes Qualifiers: Encounter type: initial encounter Qualified Code(s): T18.108A - Unspecified foreign body in esophagus causing other injury, initial encounter - Problem List Review Problem List Initiated/Reviewed/Updated: Yes - My Orders Last 24 Hours: My Active Orders 08/02/20 00:29 Chest 1V Frontal [CR] Stat 08/02/20 00:47 RT Aerosol Therapy [RC] ASDIRECTED - Assessment/Plan Last 24 Hours: My Active Orders 08/02/20 00:29 Chest 1V Frontal [CR] Stat 08/02/20 00:47 RT Aerosol Therapy [RC] ASDIRECTED
[2020-08-02] MEDS ORDERED: Albuterol/Ipratropium 3.0-0.5 MG/3 ML Neb Soln NEB ONE (00:47)
--- NOTE | 2020-08-02 12:27 | CR ---
CHEST: Portable 08/02/2020 and 12:52 AM CLINICAL HISTORY:Dyspnea COMPARISON:2019 FINDINGS: There is less than optimal inspiration. The heart is borderline enlarged. Vascularity is normal. No infiltrates are seen. Are no effusions Impression: Borderline cardiomegaly No acute cardiopulmonary process.
== END 2020-08-02 01:43 | disposition home or self-care (01) ==
LOC: JP.ED 00:15
DX: T18.128A Food in esophagus causing other injury, initial encounter (principal); R06.02 Shortness of breath; I11.0 Hypertensive heart disease with heart failure; I50.9 Heart failure, unspecified; E78.00 Pure hypercholesterolemia, unspecified; E11.9 Type 2 diabetes mellitus without complications; E03.9 Hypothyroidism, unspecified; Z86.73 Personal history of transient ischemic attack (TIA), and cerebral infarction without residual deficits; Z91.040 Latex allergy status; Z88.8 Allergy status to other drugs, medicaments and biological substances; Z88.5 Allergy status to narcotic agent; Z79.02 Long term (current) use of antithrombotics/antiplatelets; Z79.84 Long term (current) use of oral hypoglycemic drugs; Z79.899 Other long term (current) drug therapy
CPT/HCPCS: 36415; 71045; 71045-26; 80053; 83880; 84484; 85025; 94640; 99284; 99285-25; J7620-GY

== ENCOUNTER 2020-09-20 11:20 | Emergency (ER) | payer MEDICAID ==
--- NOTE | 2020-09-20 11:54 | EDM.PDOC ---
ED HPI GENERAL MEDICAL PROBLEM - General Chief Complaint: Respiratory Problem Stated Complaint: SHORTNESS OF BREATH Time Seen by Provider: 09/20/20 11:40 Source of Information: Reports: Patient, Family, Old Records History Limitations: Reports: No Limitations - History of Present Illness INITIAL COMMENTS - FREE TEXT/NARRATIVE: 55 yo female with a pHx of CVA presents with onset of SOB this morning. Has no other associated sx's. Was at PT and was advised to come to the ER. Has a pHx of CHF, does not smoke. Later her story changed such that she had some SOB in the night that was worse with lying flat. Has a hard time holding her urine, so would prefer to take something after she gets home. Onset: Today, Sudden Onset Date: 09/20/20 Duration: Minutes:, Hour(s): Location: Reports: Chest Quality: Reports: Other (no pain) Severity: Mild Improves with: Reports: Rest Worsens with: Reports: Movement Context: Reports: Other (See HPI) Associated Symptoms: Reports: Shortness of Breath. 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 (see below) (none) - Related Data Allergies Allergy/AdvReac Type Severity Reaction Status Date / Time latex Allergy Rash Verified 09/20/20 11:33 aspirin AdvReac Mild Stomach Verified 09/20/20 11:33 Upset codeine AdvReac Mild Vomiting Verified 09/20/20 11:33 hydromorphone [From Dilaudid] AdvReac Nausea and Verified 09/20/20 11:33 Vomiting Home Meds: Home Meds Clopidogrel [Plavix] 75 mg PO DAILY 10/13/13 [History] Levothyroxine [Synthroid] 50 mcg PO ACBRK 10/13/13 [History] Lisinopril 2.5 mg PO DAILY 10/13/13 [History] atorvaSTATin [Lipitor] 20 mg PO BEDTIME 10/13/13 [History] metFORMIN [Glucophage] 500 mg PO BIDMEALS 08/25/15 [History] Fexofenadine [Daphnie] 180 mg PO ASDIRECTED PRN 07/26/19 [History] Furosemide [Lasix] 40 mg PO DAILY #30 tablet 10/21/19 [Rx] carvediloL [Coreg] 3.125 mg PO BID 05/20/20 [History] Latanoprost/Pf [Latanoprost 0.005% Eye Drop] 1 drop EYEBOTH BEDTIME 08/02/20 [History] Past Medical History HEENT History: Reports: Allergic Rhinitis, Impaired Vision Cardiovascular History: Reports: Heart Failure, High Cholesterol, Hypertension, Prior Cardiac Arrest Respiratory History: Reports: Sleep Apnea Gastrointestinal History: Reports: Cholelithiasis Genitourinary History: Reports: UTI, 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: Dysfunctional Uterine Bleeding, , Spontaneous Musculoskeletal History: Reports: Other (See Below) Other Musculoskeletal History: chronic pain on right side due to stroke Neurological History: Reports: CVA, Speech Problems, Other (See Below) Other Neuro History: right side deficit with residual pain Endocrine/Metabolic History: Reports: Diabetes, Type II, Hypothyroidism, Obesity/BMI 30+ Hematologic History: Reports: Blood Transfusion(s) Oncologic (Cancer) History: Reports: None - Infectious Disease History Infectious Disease History: Reports: Chicken Pox - Past Surgical History Head Surgeries/Procedures: Reports: None HEENT Surgical History: Reports: Tonsillectomy Cardiovascular Surgical History: Reports: None GI Surgical History: Reports: Cholecystectomy, EGD, Hernia, Abdominal, Hernia, Inguinal Female Surgical History: Reports: Breast Biopsy, D&C, Hysterectomy, Oophorectomy Endocrine Surgical History: Reports: None Oncologic Surgical History: Reports: Biopsy of Breast Social & Family History - Family History Family Medical History: No Pertinent Family History - Caffeine Use Caffeine Use: Reports: Coffee ED ROS GENERAL - Review of Systems Review Of Systems: See Below Constitutional: Reports: No Symptoms HEENT: Reports: No Symptoms Respiratory: Reports: Shortness of Breath. Denies: Wheezing, Pleuritic Chest Pain, Cough, Sputum Cardiovascular: Reports: No Symptoms. Denies: Chest Pain, Palpitations Endocrine: Reports: No Symptoms GI/Abdominal: Reports: No Symptoms Musculoskeletal: Reports: No Symptoms Skin: Reports: No Symptoms Neurological: Reports: No Symptoms ED EXAM, GENERAL - Physical Exam Exam: See Below Exam Limited By: No Limitations General Appearance: Alert, WD/WN, No Apparent Distress Eye Exam: Bilateral Eye: Normal Inspection Ears: Normal External Exam, Normal Canal, Hearing Grossly Normal Ear Exam: Bilateral Ear: Auricle Normal, Canal Normal Nose: Normal Inspection, No Blood Throat/Mouth: Normal Inspection, Normal Lips, Normal Oropharynx, Normal Voice, No Airway Compromise Head: Atraumatic, Normocephalic Neck: Normal Inspection Respiratory/Chest: No Respiratory Distress, Lungs Clear, Normal Breath Sounds, No Accessory Muscle Use Cardiovascular: Regular Rate, Rhythm, No Edema, Tachycardia (mild, not new) GI/Abdominal: Normal Bowel Sounds, Soft, Non-Tender, No Distention Back Exam: Normal Inspection. No: CVA Tenderness (R), CVA Tenderness (L) Extremities: Normal Inspection, Normal Range of Motion, Non-Tender, No Pedal Edema. 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 Last Recorded V/S: Last Vital Signs Temp 36.3 C 09/20/20 11:36 Pulse 98 09/20/20 11:55 Resp 17 09/20/20 11:55 BP 111/74 09/20/20 11:55 Pulse Ox 95 09/20/20 11:55 - Orders/Labs/Meds Orders: Active Orders 24 hr Category Date Time Status Cardiac Monitoring [RC] .As Directed Care 09/20/20 11:41 Active Labs: Laboratory Tests 09/20/20 09/20/20 09/20/20 Range/Units 12:00 12:00 12:00 WBC 7.8 (4.5-11.0) K/uL RBC 4.86 (3.30-5.50) M/uL Hgb 12.6 (12.0-15.0) g/dL Hct 40.5 (36.0-48.0) % MCV 83 (80-98) fL MCH 26 L (27-31) pg MCHC 31 L (32-36) % Plt Count 262 (150-400) K/uL D-Dimer, Quantitative 729.60 H (0.0-500.0) ng/mL Sodium 145 (140-148) mmol/L Potassium 4.4 (3.6-5.2) mmol/L Chloride 103 (100-108) mmol/L Carbon Dioxide 29 (21-32) mmol/L Anion Gap 13.4 (5.0-14.0) mmol/L BUN 10 (7-18) mg/dL Creatinine 1.0 (0.6-1.0) mg/dL Est Cr Clr Drug Dosing 47.97 mL/min Estimated GFR (MDRD) 58 L (>60) Glucose 113 H (74-106) mg/dL Calcium 9.8 (8.5-10.1) mg/dL Troponin I < 0.017 (0.000-0.056) ng/mL NT-Pro-B Natriuret Pep 943 H (5-125) pg/mL Departure - Departure Time of Disposition: 12:55 Disposition: Home, Self-Care 01 Condition: Fair Clinical Impression: Fluid overload Qualifiers: Hypervolemia type: unspecified Qualified Code(s): E87.70 - Fluid overload, unspecified - Discharge Information *PRESCRIPTION DRUG MONITORING PROGRAM REVIEWED*: Not Applicable *COPY OF PRESCRIPTION DRUG MONITORING REPORT IN PATIENT PAMELA: Not Applicable Instructions: Shortness of Breath, Adult, [id number] Referrals: PCP,None [Primary Care Provider] - Forms: ED Department Discharge Additional Instructions: Increase your lisinopril to 5 mg daily. Take an extra dose of furosemide 40 mg orally when you get home. Recheck in the clinic later this week. Sepsis Event Note (ED) - Evaluation Sepsis Screening Result: No Definite Risk - Focused Exam Vital Signs: Vital Signs Temp Pulse Resp BP Pulse Ox 09/20/20 11:55 98 17 111/74 95 09/20/20 11:36 36.3 C 105 H 20 127/66 95 09/20/20 11:25 36.3 C 105 H 20 127/66 99 - My Orders Last 24 Hours: My Active Orders 09/20/20 11:41 Cardiac Monitoring [RC] .As Directed - Assessment/Plan Last 24 Hours: My Active Orders 09/20/20 11:41 Cardiac Monitoring [RC] .As Directed
[2020-09-20 12:39] VITALS: BP 111/74; PULSE 98
== END 2020-09-20 13:40 | disposition home or self-care (01) ==
LOC: JP.ED 11:20
DX: E87.70 Fluid overload, unspecified (principal); I11.0 Hypertensive heart disease with heart failure; I50.9 Heart failure, unspecified; E03.9 Hypothyroidism, unspecified; E78.00 Pure hypercholesterolemia, unspecified; E11.9 Type 2 diabetes mellitus without complications; E66.9 Obesity, unspecified; Z79.02 Long term (current) use of antithrombotics/antiplatelets; Z79.84 Long term (current) use of oral hypoglycemic drugs; Z79.899 Other long term (current) drug therapy; Z88.8 Allergy status to other drugs, medicaments and biological substances; Z91.040 Latex allergy status; Z88.5 Allergy status to narcotic agent
CPT/HCPCS: 36415; 80048; 83880; 84484; 85027; 85379; 99283; 99284

== ENCOUNTER 2020-10-05 04:44 | Emergency (ER) | payer MEDICAID ==
[2020-10-05 04:53] VITALS: BP 144/82; PULSE 122
[2020-10-05] MEDS ORDERED: Furosemide 40 MG/4 ML VIAL IVPUSH ONE (04:59)
--- NOTE | 2020-10-05 05:22 | EDM.PDOC ---
ED HPI GENERAL MEDICAL PROBLEM - General Chief Complaint: Respiratory Problem Stated Complaint: MED[facility] Time Seen by Provider: 10/05/20 04:50 Source of Information: Reports: Patient, EMS, Family History Limitations: Reports: Physical Impairment, Respiratory Distress - History of Present Illness INITIAL COMMENTS - FREE TEXT/NARRATIVE: 55-year-old female with a history of asthma and congestive heart failure, also documented low ejection fraction, comes in by ambulance with acute shortness of breath and respiratory failure, likely congestive heart failure. She was picked up by EMS short of breath, significant wheezing and rales bilaterally. She has been taking her medications and avoiding salt. No fevers or chills, symptoms have all developed overnight. No peripheral edema. She feels better sitting up. Onset: Sudden (Apparently symptoms started fairly quickly overnight) Duration: Hour(s): (6 to 8 h) Associated Symptoms: Reports: Cough, Malaise, Shortness of Breath, Other (No fevers, she is "always chilled"). Denies: Chest Pain - Related Data Allergies Allergy/AdvReac Type Severity Reaction Status Date / Time latex Allergy Rash Verified 09/20/20 11:33 aspirin AdvReac Mild Stomach Verified 09/20/20 11:33 Upset codeine AdvReac Mild Vomiting Verified 09/20/20 11:33 hydromorphone [From Dilaudid] AdvReac Nausea and Verified 09/20/20 11:33 Vomiting Home Meds: Home Meds Clopidogrel [Plavix] 75 mg PO DAILY 10/13/13 [History] Levothyroxine [Synthroid] 50 mcg PO ACBRK 10/13/13 [History] Lisinopril 2.5 mg PO DAILY 10/13/13 [History] atorvaSTATin [Lipitor] 20 mg PO BEDTIME 10/13/13 [History] metFORMIN [Glucophage] 500 mg PO BIDMEALS 08/25/15 [History] Fexofenadine [Daphnie] 180 mg PO ASDIRECTED PRN 07/26/19 [History] Furosemide [Lasix] 40 mg PO DAILY #30 tablet 10/21/19 [Rx] carvediloL [Coreg] 3.125 mg PO BID 05/20/20 [History] Latanoprost/Pf [Latanoprost 0.005% Eye Drop] 1 drop EYEBOTH BEDTIME 03/15/21 [History] Past Medical History HEENT History: Reports: Allergic Rhinitis, Impaired Vision Cardiovascular History: Reports: Heart Failure, High Cholesterol, Hypertension, Prior Cardiac Arrest Respiratory History: Reports: Sleep Apnea Gastrointestinal History: Reports: Cholelithiasis Genitourinary History: Reports: UTI, 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: Dysfunctional Uterine Bleeding, , Spontaneous Musculoskeletal History: Reports: Other (See Below) Other Musculoskeletal History: chronic pain on right side due to stroke Neurological History: Reports: CVA, Speech Problems, Other (See Below) Other Neuro History: right side deficit with residual pain Endocrine/Metabolic History: Reports: Diabetes, Type II, Hypothyroidism, Obesity/BMI 30+ Hematologic History: Reports: Blood Transfusion(s) Oncologic (Cancer) History: Reports: None - Infectious Disease History Infectious Disease History: Reports: Chicken Pox - Past Surgical History Head Surgeries/Procedures: Reports: None HEENT Surgical History: Reports: Tonsillectomy Cardiovascular Surgical History: Reports: None GI Surgical History: Reports: Cholecystectomy, EGD, Hernia, Abdominal, Hernia, Inguinal Female Surgical History: Reports: Breast Biopsy, D&C, Hysterectomy, Oophorectomy Endocrine Surgical History: Reports: None Oncologic Surgical History: Reports: Biopsy of Breast Social & Family History - Family History Family Medical History: No Pertinent Family History - Caffeine Use Caffeine Use: Reports: Coffee ED ROS GENERAL - Review of Systems Review Of Systems: See Below Constitutional: Reports: Chills, Malaise. Denies: Fever HEENT: Denies: Throat Pain Respiratory: Reports: Shortness of Breath, Wheezing, Cough. Denies: Sputum Cardiovascular: Denies: Chest Pain, Palpitations GI/Abdominal: Denies: Abdominal Pain, Constipation, Diarrhea Musculoskeletal: Reports: Other (Chronic right-sided arm and leg pain) Skin: Denies: Rash Neurological: Reports: Other (Right-sided weakness after a series of strokes 10 years ago) Psychiatric: Reports: Anxiety ED EXAM, GENERAL - Physical Exam Exam: See Below Exam Limited By: No Limitations General Appearance: Alert, Mild Distress Eye Exam: Bilateral Eye: Normal Inspection Head: Atraumatic Neck: No: Lymphadenopathy (R), Lymphadenopathy (L) Respiratory/Chest: Respiratory Distress (Mild to moderate respiratory distress on arrival), Crackles, Rales (Diffuse), Wheezing (Diffuse expiratory wheezes) Cardiovascular: Regular Rate, Rhythm, Tachycardia GI/Abdominal: Non-Tender Extremities: Normal Inspection. No: Pedal Edema Neurological: Alert, Oriented Psychiatric: Anxious Skin Exam: Warm, Dry Course - Vital Signs Last Recorded V/S: Last Vital Signs Temp 97.7 F 10/05/20 04:50 Pulse 122 H 10/05/20 04:50 Resp 28 H 10/05/20 04:50 BP 144/82 H 10/05/20 04:50 Pulse Ox 95 10/05/20 04:50 - Orders/Labs/Meds Orders: Active Orders 24 hr Category Date Time Status EKG 12 Lead [EK] Routine Ther 10/05/20 06:13 Ordered Labs: Laboratory Tests 10/05/20 10/05/20 10/05/20 Range/Units 05:05 05:10 05:10 WBC 10.0 (4.5-11.0) K/uL RBC 4.74 (3.30-5.50) M/uL Hgb 12.2 (12.0-15.0) g/dL Hct 39.5 (36.0-48.0) % MCV 83 (80-98) fL MCH 26 L (27-31) pg MCHC 31 L (32-36) % Plt Count 282 (150-400) K/uL Neut % (Auto) 65 (36-66) % Lymph % (Auto) 28 (24-44) % [place] % (Auto) 4 (2-6) % Eos % (Auto) 3 (2-4) % Baso % (Auto) 0 (0-1) % Sodium 140 (140-148) mmol/L Potassium 3.8 (3.6-5.2) mmol/L Chloride 102 (100-108) mmol/L Carbon Dioxide 25 (21-32) mmol/L Anion Gap 16.8 H (5.0-14.0) mmol/L BUN 15 (7-18) mg/dL Creatinine 0.9 (0.6-1.0) mg/dL Est Cr Clr Drug Dosing 53.30 mL/min Estimated GFR (MDRD) > 60 (>60) Glucose 150 H (74-106) mg/dL Calcium 9.5 (8.5-10.1) mg/dL Total Bilirubin 1.0 D (0.2-1.0) mg/dL AST 19 (15-37) U/L ALT 33 (12-78) U/L Alkaline Phosphatase 104 (46-116) U/L Troponin I < 0.017 (0.000-0.056) ng/mL Total Protein 7.1 (6.4-8.2) g/dL Albumin 3.5 (3.4-5.0) g/dL Globulin 3.6 H (2.3-3.5) g/dL Albumin/Globulin Ratio 1.0 L (1.2-2.2) Influenza Type A RNA Negative (NEGATIVE) RSV RNA (INAAT) Negative (NEGATIVE) Influenza Type B RNA Negative (NEGATIVE) SARS-CoV-2 RNA (ARIANNA) Negative (NEGATIVE) Meds: Medications Discontinued Medications Generic Name Dose Route Start Last Admin Trade Name Freq PRN Reason Stop Dose Admin Furosemide 80 mg 10/05/20 04:59 10/05/20 05:27 Furosemide 40 Mg/4 Ml Vial IVPUSH 10/05/20 05:00 80 mg ONETIME ONE Administration - Re-Assessments/Exams Free Text/Narrative Re-Assessment/Exam: 10/05/20 05:35 1 view chest x-ray showed congestive heart failure and cardiomegaly, an IV was started and the patient was given 80 mg of IV Lasix. CBC, CMP, troponin were obtained as well as a 4 Plex Covid viral test. In reviewing her records, her flash edema has responded well to IV Lasix in the past. Within 1/2-hour of arriving to the ER, she had calmed down significantly, still abnormal breath sounds but O2 sats at 95% with 2 L of O2 nasal cannula oxygen. 10/05/20 06:15 CBC and CMP were generally normal other than a mildly elevated glucose at 150. Troponin was 0. Viral studies still pending. Patient continued to improve and become more comfortable. It is too risky trying to send patient home that she needs at least 1 to 2 days of inpatient care, we are full so consultation was done with [facility] in [place] for transfer, an EKG was requested which was done. Echo reports from October 2019 along with EKG from October 19, 2019 were printed and faxed along with the current EKG labs. Current chest x-ray transferred. Dr. Hawley accepted the patient at 06:10. Departure - Departure Time of Disposition: 08:15 Disposition: DC/Tfer to Other 70 Clinical Impression: Congestive heart failure Qualifiers: Heart failure type: systolic Heart failure chronicity: acute on chronic Qualified Code(s): I50.23 - Acute on chronic systolic (congestive) heart failure - Discharge Information Referrals: PCP,None [Primary Care Provider] - Forms: ED Department Discharge Care Plan Goals: Patient will be transferred to [facility] for further evaluation and treatment for acute on chronic left-sided congestive heart failure with flash pulmonary edema. Sepsis Event Note (ED) - Evaluation Sepsis Screening Result: No Definite Risk - My Orders Last 24 Hours: My Active Orders 10/05/20 06:13 EKG 12 Lead [EK] Routine - Assessment/Plan Last 24 Hours: My Active Orders 10/05/20 06:13 EKG 12 Lead [EK] Routine
[2020-10-05 06:21] LABS: CORONAVIRUS COVID-19 NAA NEGATIVE (NEGATIVE)
--- NOTE | 2020-10-05 07:00 | CRLCR ---
Indication: Shortness of breath Comparison: Single view chest August 02, 2020 Technique: Single AP view chest Findings: There is hyperinflation and chronic interstitial change. There are increasing interstitial markings likely representing developing pulmonary edema with questionable masslike opacity adjacent to the left hilum. There is no pneumothorax. The cardiac silhouette is mildly prominent. The bony thorax is grossly intact. Impression: Hyperinflation and chronic interstitial change with diffusely increased interstitial markings likely representing pulmonary edema. Incidental note is made of somewhat masslike consolidation adjacent to the left hilum for which further evaluation with cross-sectional study such as CT is recommended. Dictated by Michael Lynn MD @ 10/05/2020 6:58:[address] Michael Lynn @ Oct 05 2020 6:58AM
== END 2020-10-05 08:14 | disposition other institution (70) ==
LOC: JP.ED 04:44
DX: I11.0 Hypertensive heart disease with heart failure (principal); I50.23 Acute on chronic systolic (congestive) heart failure; E78.00 Pure hypercholesterolemia, unspecified; E11.9 Type 2 diabetes mellitus without complications; E03.9 Hypothyroidism, unspecified; E66.9 Obesity, unspecified; Z68.35 Body mass index [BMI] 35.0-35.9, adult; Z91.040 Latex allergy status; Z88.6 Allergy status to analgesic agent; Z88.5 Allergy status to narcotic agent; Z79.84 Long term (current) use of oral hypoglycemic drugs; Z79.02 Long term (current) use of antithrombotics/antiplatelets; Z86.73 Personal history of transient ischemic attack (TIA), and cerebral infarction without residual deficits; Z20.822 Contact with and (suspected) exposure to COVID-19
CPT/HCPCS: 0241U; 36415; 71045; 80053; 84484; 85025; 93005; 96374; 99285; J1940

== ENCOUNTER 2021-05-31 01:40 | Emergency (ER) | payer MEDICAID ==
[2021-05-31 02:03] VITALS: BP 95/69; PULSE 75
[2021-05-31] MEDS ORDERED: Loperamide 2 MG Cap PO ONE (02:26)
[2021-05-31] MEDS ORDERED: Ondansetron 4 MG Tab.DIS PO ONE (02:26)
[2021-05-31] MEDS ORDERED: Acetaminophen 500 MG Tab PO ONE (02:26)
== END 2021-05-31 03:19 | disposition home or self-care (01) ==
LOC: JP.ED 01:40
DX: R19.7 Diarrhea, unspecified (principal); E78.00 Pure hypercholesterolemia, unspecified; I10 Essential (primary) hypertension; E11.9 Type 2 diabetes mellitus without complications; E03.9 Hypothyroidism, unspecified; E66.9 Obesity, unspecified; Z68.33 Body mass index [BMI] 33.0-33.9, adult; Z91.040 Latex allergy status; Z86.73 Personal history of transient ischemic attack (TIA), and cerebral infarction without residual deficits; Z87.891 Personal history of nicotine dependence; Z88.5 Allergy status to narcotic agent; Z88.8 Allergy status to other drugs, medicaments and biological substances; Z79.899 Other long term (current) drug therapy; Z79.84 Long term (current) use of oral hypoglycemic drugs; Z79.02 Long term (current) use of antithrombotics/antiplatelets
CPT/HCPCS: 36415; 80048; 85027; 99284; A9270

== ENCOUNTER 2021-12-30 02:08 | Emergency (ER) | payer MEDICARE, MEDICAID ==
[2021-12-30 02:32] VITALS: BP 102/56; PULSE 87
== END 2021-12-30 03:27 | disposition home or self-care (01) ==
LOC: JP.ED 02:08
DX: U07.1 COVID-19 (principal); I11.0 Hypertensive heart disease with heart failure; I50.9 Heart failure, unspecified; E66.9 Obesity, unspecified; Z68.35 Body mass index [BMI] 35.0-35.9, adult; Z91.040 Latex allergy status; Z88.6 Allergy status to analgesic agent; Z88.5 Allergy status to narcotic agent; Z79.899 Other long term (current) drug therapy; Z79.84 Long term (current) use of oral hypoglycemic drugs; Z90.49 Acquired absence of other specified parts of digestive tract; Z90.710 Acquired absence of both cervix and uterus
CPT/HCPCS: 87081; 87880; 99283; U0002

== ENCOUNTER 2023-01-21 17:34 | Emergency (ER) | payer MEDICARE, MEDICAID ==
[2023-01-21 19:59] VITALS: BP 119/78; PULSE 86
[2023-01-21 20:50] LABS: BASOPHILS ABSOLUTE AUTO 0.05 K/uL (0.00-0.10); BASOPHILS PERCENT AUTO 0.5 % (0.1-1.3); EOSINOPHILS ABSOLUTE AUTO 0.25 K/uL (0.00-0.40); EOSINOPHILS PERCENT AUTO 2.3 % (0.0-5.4); HEMATOCRIT 42.5 % (34.3-46.0); HEMOGLOBIN 13.6 g/dL (11.2-15.5); IMMATURE GRAN ABSOLUTE AUTO 0.03 K/uL (0.00-0.23); IMMATURE GRAN PERCENT AUTO 0.3 % (0.0-0.7); LYMPHOCYTES ABSOLUTE AUTO 2.88 K/uL (0.8-3.3); LYMPHOCYTES PERCENT AUTO 26.4 % (11.4-47.7); MEAN CORPUSCULAR HEMOGLOBIN 26.3 pg (31.6-35.5); MEAN CORPUSCULAR VOLUME 82.2 fL (81.4-99.0); MONOCYTES PERCENT AUTO 6.4 % (3.3-12.6); NEUTROPHILS ABSOLUTE AUTO 6.99 K/uL (1.0-7.6); NEUTROPHILS PERCENT AUTO 64.1 % (40.0-78.1); PLATELET COUNT,PLT 282 K/uL (130-375); RED BLOOD CELL COUNT 5.17 M/uL (3.77-5.24); WHITE BLOOD CELL COUNT,WBC 10.9 K/uL (3.2-11.0)
[2023-01-21] MEDS ORDERED: Acetaminophen 325 MG Tab PO ONE (21:10)
[2023-01-21 21:11] LABS: ALANINE AMINOTRANSFERASE,ALT 28 U/L (12-78); ALBUMIN 3.9 g/dL (3.4-5.0); ALKALINE PHOSPHATASE 137 U/L (46-116); ASPARTATE AMNIOTRANSFERASE,AST 17 U/L (15-37); BILIRUBIN TOTAL 1.2 mg/dL (0.2-1.0); BLOOD UREA NITROGEN,BUN 16 mg/dL (7-18); CALCIUM 9.5 mg/dL (8.5-10.1); CARBON DIOXIDE,CO2 29 mmol/L (21-32); CHLORIDE,CL 95 mmol/L (100-108); CREATININE 1.1 mg/dL (0.6-1.0); EST CRCL DRUG DOSING (CG) 42.58 mL/min; ESTIMATED GFR 59 mL/min (>60); GLUCOSE RANDOM 99 mg/dL (74-106); SODIUM,NA 135 mmol/L (140-148)
[2023-01-21 22:03] LABS: APPEARANCE,URINE SLIGHTLY CLOUDY (CLEAR); BILIRUBIN,URINE NEGATIVE (NEGATIVE); COLOR,URINE YELLOW (YELLOW); GLUCOSE,URINE >=1000 mg/dL (NEGATIVE); KETONES,URINE NEGATIVE (NEGATIVE); LEUKOCYTE ESTERASE,URINE NEGATIVE (NEGATIVE); NITRITE,URINE NEGATIVE (NEGATIVE); OCCULT BLOOD,URINE NEGATIVE (NEGATIVE); PROTEIN,URINE NEGATIVE (NEGATIVE); UROBILINOGEN,URINE 0.2 EU/dL (0.2-1.0)
[2023-01-21 22:09] LABS: AMORPHOUS SEDIMENT,URINE NOT SEEN; BACTERIA,URINE MODERATE; EPITHELIAL CELLS,URINE MODERATE; MUCUS,URINE FEW; RBC,URINE 0-5 (0-5); WBC,URINE 0-5 (0-5)
== END 2023-01-21 23:18 | disposition home or self-care (01) ==
LOC: JP.ED 17:34
DX: R63.0 Anorexia (principal); E78.00 Pure hypercholesterolemia, unspecified; I11.0 Hypertensive heart disease with heart failure; I50.9 Heart failure, unspecified; E11.9 Type 2 diabetes mellitus without complications; E03.9 Hypothyroidism, unspecified; E66.9 Obesity, unspecified; Z91.040 Latex allergy status; Z88.6 Allergy status to analgesic agent; Z88.5 Allergy status to narcotic agent; Z79.84 Long term (current) use of oral hypoglycemic drugs; Z79.899 Other long term (current) drug therapy
CPT/HCPCS: 36415; 80053; 81001; 85025; 99284; A9270; U0002

== ENCOUNTER 2023-08-09 08:52 | Emergency (ER) | payer MEDICARE, MEDICAID ==
[2023-08-09 09:45] LABS: CORONAVIRUS COVID-19 NAA NEGATIVE (NEGATIVE); INFLUENZA A NAA NEGATIVE (NEGATIVE); INFLUENZA B NAA NEGATIVE (NEGATIVE); RESPIRATORY SYNCYTIAL VIR NAA NEGATIVE (NEGATIVE)
[2023-08-09 10:11] LABS: BASOPHILS ABSOLUTE AUTO 0.05 K/uL (0.00-0.10); BASOPHILS PERCENT AUTO 0.5 % (0.1-1.3); EOSINOPHILS ABSOLUTE AUTO 0.22 K/uL (0.00-0.40); EOSINOPHILS PERCENT AUTO 2.4 % (0.0-5.4); HEMATOCRIT 42.8 % (34.3-46.0); HEMOGLOBIN 13.6 g/dL (11.2-15.5); IMMATURE GRAN ABSOLUTE AUTO 0.03 K/uL (0.00-0.23); IMMATURE GRAN PERCENT AUTO 0.3 % (0.0-0.7); LYMPHOCYTES ABSOLUTE AUTO 1.79 K/uL (0.8-3.3); LYMPHOCYTES PERCENT AUTO 19.4 % (11.4-47.7); MEAN CORPUSCULAR HEMOGLOBIN 25.7 pg (31.6-35.5); MEAN CORPUSCULAR HGB CONC 31.8 g/dL (31.6-35.5); MEAN CORPUSCULAR VOLUME 80.9 fL (81.4-99.0); MONOCYTES ABSOLUTE AUTO 0.54 K/uL (0.20-0.90); MONOCYTES PERCENT AUTO 5.9 % (3.3-12.6); NEUTROPHILS PERCENT AUTO 71.5 % (40.0-78.1); PLATELET COUNT,PLT 274 K/uL (130-375); RED BLOOD CELL COUNT 5.29 M/uL (3.77-5.24); WHITE BLOOD CELL COUNT,WBC 9.2 K/uL (3.2-11.0)
[2023-08-09] MEDS: Albuterol/Ipratropium 3.0-0.5 MG/3 ML Neb Soln NEB ONE (10:13)
[2023-08-09 10:41] LABS: A/G RATIO 0.9 (1.2-2.2); ALANINE AMINOTRANSFERASE,ALT 18 U/L (12-78); ALBUMIN 3.6 g/dL (3.4-5.0); ALKALINE PHOSPHATASE 120 U/L (46-116); ASPARTATE AMNIOTRANSFERASE,AST 13 U/L (15-37); BILIRUBIN TOTAL 0.9 mg/dL (0.2-1.0); BLOOD UREA NITROGEN,BUN 19 mg/dL (7-18); CALCIUM 9.5 mg/dL (8.5-10.1); CARBON DIOXIDE,CO2 29 mmol/L (21-32); CHLORIDE,CL 97 mmol/L (100-108); EST CRCL DRUG DOSING (CG) 46.27 mL/min; ESTIMATED GFR 65 mL/min (>60); GLUCOSE RANDOM 138 mg/dL (74-106); POTASSIUM,K 3.9 mmol/L (3.6-5.2); PROTEIN TOTAL,TP 7.6 g/dL (6.4-8.2); SODIUM,NA 135 mmol/L (140-148); TROPONIN I HIGH SENSITIVITY 14.4 pg/mL (<=60.3)
[2023-08-09 10:42] LABS: ANION GAP 12.9 mmol/L (5.0-14.0)
[2023-08-09 12:33] VITALS: BP 100/61; PULSE 85
== END 2023-08-09 12:35 | disposition home or self-care (01) ==
LOC: JP.ED 08:52
DX: I50.23 Acute on chronic systolic (congestive) heart failure (principal); I11.0 Hypertensive heart disease with heart failure; I50.9 Heart failure, unspecified; E78.00 Pure hypercholesterolemia, unspecified; E66.9 Obesity, unspecified; E11.9 Type 2 diabetes mellitus without complications; E03.9 Hypothyroidism, unspecified; Z91.040 Latex allergy status; Z88.8 Allergy status to other drugs, medicaments and biological substances; Z79.899 Other long term (current) drug therapy; Z79.84 Long term (current) use of oral hypoglycemic drugs; Z68.35 Body mass index [BMI] 35.0-35.9, adult
CPT/HCPCS: 0241U; 36415; 71045; 80053; 83880; 84484; 85025; 85379; 99285; J7620

== ENCOUNTER 2023-08-19 04:47 | Inpatient (IN) | payer MEDICARE, MEDICAID ==
[2023-08-19 05:14] LABS: BASOPHILS ABSOLUTE AUTO 0.08 K/uL (0.00-0.10); BASOPHILS PERCENT AUTO 0.5 % (0.1-1.3); EOSINOPHILS ABSOLUTE AUTO 0.27 K/uL (0.00-0.40); EOSINOPHILS PERCENT AUTO 1.8 % (0.0-5.4); HEMATOCRIT 42.2 % (34.3-46.0); HEMOGLOBIN 13.5 g/dL (11.2-15.5); IMMATURE GRAN ABSOLUTE AUTO 0.09 K/uL (0.00-0.23); IMMATURE GRAN PERCENT AUTO 0.6 % (0.0-0.7); LYMPHOCYTES ABSOLUTE AUTO 2.13 K/uL (0.8-3.3); LYMPHOCYTES PERCENT AUTO 14.4 % (11.4-47.7); MEAN CORPUSCULAR HEMOGLOBIN 25.9 pg (31.6-35.5); MONOCYTES ABSOLUTE AUTO 0.57 K/uL (0.20-0.90); MONOCYTES PERCENT AUTO 3.9 % (3.3-12.6); NEUTROPHILS ABSOLUTE AUTO 11.65 K/uL (1.0-7.6); NEUTROPHILS PERCENT AUTO 78.8 % (40.0-78.1); PLATELET COUNT,PLT 276 K/uL (130-375); RED BLOOD CELL COUNT 5.21 M/uL (3.77-5.24); WHITE BLOOD CELL COUNT,WBC 14.8 K/uL (3.2-11.0)
[2023-08-19 05:39] LABS: ALANINE AMINOTRANSFERASE,ALT 18 U/L (12-78); ALBUMIN 3.6 g/dL (3.4-5.0); ALKALINE PHOSPHATASE 130 U/L (46-116); ASPARTATE AMNIOTRANSFERASE,AST 14 U/L (15-37); BILIRUBIN TOTAL 0.6 mg/dL (0.2-1.0); BLOOD UREA NITROGEN,BUN 22 mg/dL (7-18); CALCIUM 9.3 mg/dL (8.5-10.1); CARBON DIOXIDE,CO2 25 mmol/L (21-32); CHLORIDE,CL 99 mmol/L (100-108); EST CRCL DRUG DOSING (CG) 46.27 mL/min; ESTIMATED GFR 65 mL/min (>60); GLUCOSE RANDOM 160 mg/dL (74-106); POTASSIUM,K 3.8 mmol/L (3.6-5.2); PRO B-TYPE NATRIUR PEPT,BNPPRO 1339 pg/mL (5-125); PROTEIN TOTAL,TP 7.4 g/dL (6.4-8.2); SODIUM,NA 136 mmol/L (140-148)
[2023-08-19 05:40] LABS: ANION GAP 15.8 mmol/L (5.0-14.0)
[2023-08-19] MEDS: Albuterol/Ipratropium 3.0-0.5 MG/3 ML Neb Soln NEB ONE (07:31)
[2023-08-19] MEDS: Furosemide 40 MG/4 ML VIAL IVPUSH ONE (07:31)
[2023-08-19 11:36] LABS: CORONAVIRUS COVID-19 NAA NEGATIVE (NEGATIVE); INFLUENZA A NAA NEGATIVE (NEGATIVE); INFLUENZA B NAA NEGATIVE (NEGATIVE); RESPIRATORY SYNCYTIAL VIR NAA NEGATIVE (NEGATIVE)
[2023-08-19] MEDS ORDERED: Glucose Gel 15 GM in 37.5 GM Tube PO PRN (11:58)
[2023-08-19] MEDS ORDERED: Albuterol 0.083% 2.5 MG/3 ML Neb Soln NEB PRN (11:58)
[2023-08-19] MEDS ORDERED: Ondansetron 4 MG/2 ML SDV IV PRN (11:58)
[2023-08-19] MEDS ORDERED: 50% Dextrose in Water 50 ML Syringe IV PRN (11:58)
[2023-08-19] MEDS ORDERED: Polyethylene Glycol 3350 Powder 17 GM Packet PO PRN (11:58)
[2023-08-19] MEDS: Insulin Lispro 100 Unit/ML 3 ML KwikPen SUBCUT SCH (13:20)
[2023-08-19] MEDS ORDERED: Potassium Chloride 10 MEQ Cap.ER PO SCH (13:30)
[2023-08-19] MEDS: Sacubitril/Valsartan 24 MG-26 MG Tab PO SCH (14:18)
[2023-08-19] MEDS: Gabapentin 100 MG Cap PO SCH (14:19)
[2023-08-19] MEDS: Spironolactone 25 MG Tab PO SCH (14:19)
[2023-08-19] MEDS: Potassium Chloride 20 MEQ Tab.ER PO SCH (14:20)
[2023-08-19] MEDS: Clopidogrel 75 MG Tab PO SCH (14:20)
[2023-08-19] MEDS: Enoxaparin 40 MG/0.4 ML Syringe SUBCUT SCH (14:20)
[2023-08-19] MEDS: Carvedilol 12.5 MG Tab PO SCH ×2 (14:21→15:14)
[2023-08-19] MEDS: Carvedilol 3.125 MG Tab PO SCH (14:22)
[2023-08-19] MEDS: Empagliflozin 10 MG Tab PO SCH (14:23)
[2023-08-19] MEDS: metFORMIN 500 MG Tab PO SCH (17:35)
[2023-08-19] MEDS: Bumetanide 2.5 MG/10 ML MDV IVPUSH SCH (18:28)
[2023-08-19] MEDS: atorvaSTATin 20 MG Tab PO SCH (20:26)
[2023-08-19] MEDS: Acetaminophen 325 MG Tab PO PRN (23:26)
[2023-08-19] MEDS: Sodium Chloride 0.9% 250 ML IV ONE (23:50)
[2023-08-20 05:45] LABS: HEMATOCRIT 37.4 % (34.3-46.0); HEMOGLOBIN 12.1 g/dL (11.2-15.5); MEAN CORPUSCULAR HEMOGLOBIN 25.9 pg (31.6-35.5); MEAN CORPUSCULAR HGB CONC 32.4 g/dL (31.6-35.5); MEAN CORPUSCULAR VOLUME 79.9 fL (81.4-99.0); RED BLOOD CELL COUNT 4.68 M/uL (3.77-5.24); WHITE BLOOD CELL COUNT,WBC 9.1 K/uL (3.2-11.0)
[2023-08-20 05:56] LABS: ANION GAP 15.8 mmol/L (5.0-14.0); CALCIUM 8.9 mg/dL (8.5-10.1); EST CRCL DRUG DOSING (CG) 46.27 mL/min; MAGNESIUM 1.7 mg/dL (1.8-2.4); POTASSIUM,K 3.8 mmol/L (3.6-5.2)
[2023-08-20] MEDS: Levothyroxine 50 MCG Tab PO SCH (07:51)
[2023-08-20] MEDS: Magnesium Sulfate/Water 2 GM in Premix Bag 1 BAG IV ONE (09:28)
[2023-08-20] MEDS ORDERED: Potassium Chloride 20 MEQ Tab.ER PO SCH (13:30)
[2023-08-21 05:08] LABS: CALCIUM 9.1 mg/dL (8.5-10.1); EST CRCL DRUG DOSING (CG) 46.27 mL/min; POTASSIUM,K 4.1 mmol/L (3.6-5.2)
[2023-08-21 05:37] LABS: ANION GAP 12.1 mmol/L (5.0-14.0)
[2023-08-21] MEDS: Sodium Chloride 0.9% 10 ML Syringe FLUSH PRN (07:27)
[2023-08-22 05:50] LABS: CALCIUM 9.3 mg/dL (8.5-10.1); EST CRCL DRUG DOSING (CG) 46.27 mL/min; POTASSIUM,K 3.7 mmol/L (3.6-5.2)
[2023-08-22 06:02] LABS: ANION GAP 11.7 mmol/L (5.0-14.0)
[2023-08-22] MEDS: Bumetanide 1 MG Tab PO SCH (08:48)
[2023-08-22] MEDS: Bumetanide 1 MG/4 ML MDV IVPUSH ONE (17:22)
[2023-08-23 05:52] LABS: ANION GAP 8.2 mmol/L (5.0-14.0); CALCIUM 9.3 mg/dL (8.5-10.1); CREATININE 0.9 mg/dL (0.6-1.0); EST CRCL DRUG DOSING (CG) 51.41 mL/min; POTASSIUM,K 3.6 mmol/L (3.6-5.2)
[2023-08-23] MEDS: Potassium Chloride 20 MEQ Tab.ER PO ONE ×3 (08:51→13:24)
[2023-08-23] MEDS: Bumetanide 1 MG/4 ML MDV IVPUSH ONE (13:24)
[2023-08-24 04:45] LABS: CALCIUM 9.5 mg/dL (8.5-10.1); CREATININE 0.9 mg/dL (0.6-1.0); EST CRCL DRUG DOSING (CG) 51.41 mL/min; POTASSIUM,K 4.4 mmol/L (3.6-5.2)
[2023-08-24 04:59] LABS: ANION GAP 12.4 mmol/L (5.0-14.0)
[2023-08-24] MEDS: Bumetanide 1 MG Tab PO SCH (08:24)
[2023-08-24 11:32] VITALS: BP 94/56; PULSE 88
== END 2023-08-24 14:30 | disposition home or self-care (01) | DRG 291 ==
LOC: JP.ED 04:47 → JP.MS 09:02
PROVIDERS: ADMIT Hospitalist; ATTEND Internal Medicine
DX: I11.0 Hypertensive heart disease with heart failure (principal); I50.23 Acute on chronic systolic (congestive) heart failure; I69.351 Hemiplegia and hemiparesis following cerebral infarction affecting right dominant side; R79.89 Other specified abnormal findings of blood chemistry; H54.7 Unspecified visual loss; E78.00 Pure hypercholesterolemia, unspecified; J45.909 Unspecified asthma, uncomplicated; G47.30 Sleep apnea, unspecified; E11.9 Type 2 diabetes mellitus without complications; E03.9 Hypothyroidism, unspecified; E66.9 Obesity, unspecified; Z88.6 Allergy status to analgesic agent; I34.0 Nonrheumatic mitral (valve) insufficiency; I25.5 Ischemic cardiomyopathy; F01.50 Vascular dementia, unspecified severity, without behavioral disturbance, psychotic disturbance, mood disturbance, and anxiety; I69.320 Aphasia following cerebral infarction; Z91.040 Latex allergy status; Z88.8 Allergy status to other drugs, medicaments and biological substances; Z88.5 Allergy status to narcotic agent; Z79.02 Long term (current) use of antithrombotics/antiplatelets; Z79.899 Other long term (current) drug therapy; Z79.84 Long term (current) use of oral hypoglycemic drugs; Z95.0 Presence of cardiac pacemaker; Z87.440 Personal history of urinary (tract) infections; Z68.35 Body mass index [BMI] 35.0-35.9, adult; Z98.890 Other specified postprocedural states; Z90.89 Acquired absence of other organs; Z90.49 Acquired absence of other specified parts of digestive tract; Z90.710 Acquired absence of both cervix and uterus; Z90.722 Acquired absence of ovaries, bilateral
CPT/HCPCS: 0241U; 36415; 71046; 80048; 80053; 82947; 83735; 83880; 84145; 84443; 85025; 85027; 94640; 96374; 99222; 99232; 99238; 99284; 99285; A9270-GY; J1815; J1940; J3475; J3490; J7040; J7620

== ENCOUNTER 2023-09-25 12:31 | Inpatient (IN) | payer MEDICARE, MEDICAID ==
[2023-09-25] MEDS ORDERED: Sodium Chloride 0.9% 10 ML Syringe FLUSH PRN ×2 (12:33→16:43)
[2023-09-25 12:43] LABS: BASOPHILS ABSOLUTE AUTO 0.04 K/uL (0.00-0.10); BASOPHILS PERCENT AUTO 0.4 % (0.1-1.3); EOSINOPHILS ABSOLUTE AUTO 0.26 K/uL (0.00-0.40); EOSINOPHILS PERCENT AUTO 2.8 % (0.0-5.4); HEMATOCRIT 43.3 % (34.3-46.0); HEMOGLOBIN 13.7 g/dL (11.2-15.5); IMMATURE GRAN ABSOLUTE AUTO 0.04 K/uL (0.00-0.23); IMMATURE GRAN PERCENT AUTO 0.4 % (0.0-0.7); LYMPHOCYTES ABSOLUTE AUTO 2.17 K/uL (0.8-3.3); LYMPHOCYTES PERCENT AUTO 23.6 % (11.4-47.7); MEAN CORPUSCULAR HEMOGLOBIN 25.3 pg (31.6-35.5); MEAN CORPUSCULAR HGB CONC 31.6 g/dL (31.6-35.5); MEAN CORPUSCULAR VOLUME 79.9 fL (81.4-99.0); MONOCYTES ABSOLUTE AUTO 0.39 K/uL (0.20-0.90); MONOCYTES PERCENT AUTO 4.2 % (3.3-12.6); NEUTROPHILS ABSOLUTE AUTO 6.29 K/uL (1.0-7.6); NEUTROPHILS PERCENT AUTO 68.6 % (40.0-78.1); PLATELET COUNT,PLT 297 K/uL (130-375); RED BLOOD CELL COUNT 5.42 M/uL (3.77-5.24); WHITE BLOOD CELL COUNT,WBC 9.2 K/uL (3.2-11.0)
[2023-09-25 13:11] LABS: A/G RATIO 0.8 (1.2-2.2); ALANINE AMINOTRANSFERASE,ALT 23 U/L (12-78); ALBUMIN 3.4 g/dL (3.4-5.0); ALKALINE PHOSPHATASE 115 U/L (46-116); ANION GAP 12.4 mmol/L (5.0-14.0); ASPARTATE AMNIOTRANSFERASE,AST 13 U/L (15-37); BILIRUBIN TOTAL 0.7 mg/dL (0.2-1.0); BLOOD UREA NITROGEN,BUN 20 mg/dL (7-18); CALCIUM 9.4 mg/dL (8.5-10.1); CARBON DIOXIDE,CO2 27 mmol/L (21-32); CHLORIDE,CL 99 mmol/L (100-108); CREATININE 0.9 mg/dL (0.6-1.0); EST CRCL DRUG DOSING (CG) 51.41 mL/min; ESTIMATED GFR 74 mL/min (>60); GLUCOSE RANDOM 162 mg/dL (74-106); POTASSIUM,K 4.4 mmol/L (3.6-5.2); PRO B-TYPE NATRIUR PEPT,BNPPRO 732 pg/mL (5-125); PROTEIN TOTAL,TP 7.6 g/dL (6.4-8.2); SODIUM,NA 134 mmol/L (140-148); TROPONIN I HIGH SENSITIVITY 18.3 pg/mL (<=60.3)
[2023-09-25] MEDS: Piperacillin/Tazobactam/Dext 4.5 GM in Premix Bag 1 BAG IV ONE (15:57)
[2023-09-25 16:00] LABS: APPEARANCE,URINE SLIGHTLY CLOUDY (CLEAR); BILIRUBIN,URINE NEGATIVE (NEGATIVE); COLOR,URINE YELLOW (YELLOW); GLUCOSE,URINE 500 mg/dL (NEGATIVE); KETONES,URINE NEGATIVE (NEGATIVE); LEUKOCYTE ESTERASE,URINE NEGATIVE (NEGATIVE); NITRITE,URINE NEGATIVE (NEGATIVE); OCCULT BLOOD,URINE NEGATIVE (NEGATIVE); PH,URINE 5.5 (5.0-8.0); PROTEIN,URINE NEGATIVE (NEGATIVE); UROBILINOGEN,URINE 0.2 EU/dL (0.2-1.0)
[2023-09-25] MEDS: Levofloxacin/Dextrose 5%-Water 750 MG in Premix Bag 1 BAG IV SCH (16:03)
[2023-09-25 16:06] LABS: RBC,URINE 0-5 (0-5)
[2023-09-25 16:07] LABS: AMORPHOUS SEDIMENT,URINE NOT SEEN; BACTERIA,URINE FEW; EPITHELIAL CELLS,URINE FEW; MUCUS,URINE NOT SEEN; WBC,URINE 0-5 (0-5)
[2023-09-25] MEDS ORDERED: Glucose Gel 15 GM in 37.5 GM Tube PO PRN (16:43)
[2023-09-25] MEDS ORDERED: Albuterol/Ipratropium 3.0-0.5 MG/3 ML Neb Soln NEB PRN (16:43)
[2023-09-25] MEDS ORDERED: 50% Dextrose in Water 50 ML Syringe IV PRN (16:43)
[2023-09-25 17:11] LABS: BASE EXCESS ARTERIAL 0.3 mm/L; BICARBONATE,ARTERIAL 22.6 mmol/L (22.0-26.0); METHEMOGLOBIN 0.7 %; O2 SATURATION ARTERIAL 98.9 % (95.0-98.0); OXYHEMOGLOBIN 96.2 %; PCO2 ARTERIAL 30.4 mmHg (35.0-42.0); TOTAL HEMOGLOBIN 13.2 g/dL (12.0-16.0)
[2023-09-25] MEDS: Insulin Lispro 100 Unit/ML 3 ML KwikPen SUBCUT SCH (17:45)
[2023-09-25] MEDS: Enoxaparin 40 MG/0.4 ML Syringe SUBCUT SCH (17:45)
[2023-09-25] MEDS: Bumetanide 2.5 MG/10 ML MDV IVPUSH ONE (17:56)
[2023-09-25] MEDS: Gabapentin 100 MG Cap PO SCH (21:22)
[2023-09-25] MEDS: Sacubitril/Valsartan 24 MG-26 MG Tab PO SCH (21:23)
[2023-09-25] MEDS: Carvedilol 12.5 MG Tab PO SCH (21:23)
[2023-09-25] MEDS: atorvaSTATin 20 MG Tab PO SCH (21:24)
[2023-09-25] MEDS: Piperacillin/Tazobactam/Dext 4.5 GM in Premix Bag 1 BAG IV SCH (21:26)
[2023-09-25] MEDS: Acetaminophen 325 MG Tab PO PRN (21:57)
[2023-09-26] MEDS: Magnesium Sulfate/Water 2 GM in Premix Bag 1 BAG IV ONE
[2023-09-26] MEDS: Sodium Chloride 0.9% 1,000 ML IV ONE (01:30)
[2023-09-26] MEDS: Sodium Chloride 0.9% 500 ML IV ONE (05:15)
[2023-09-26 05:20] LABS: HEMATOCRIT 37.4 % (34.3-46.0); HEMOGLOBIN 11.8 g/dL (11.2-15.5); MEAN CORPUSCULAR HEMOGLOBIN 25.4 pg (31.6-35.5); MEAN CORPUSCULAR HGB CONC 31.6 g/dL (31.6-35.5); MEAN CORPUSCULAR VOLUME 80.4 fL (81.4-99.0); RED BLOOD CELL COUNT 4.65 M/uL (3.77-5.24); WHITE BLOOD CELL COUNT,WBC 9.6 K/uL (3.2-11.0)
[2023-09-26 05:43] LABS: CALCIUM 8.3 mg/dL (8.5-10.1); CREATININE 0.9 mg/dL (0.6-1.0); EST CRCL DRUG DOSING (CG) 51.41 mL/min; MAGNESIUM 2.8 mg/dL (1.8-2.4); POTASSIUM,K 3.9 mmol/L (3.6-5.2)
[2023-09-26 05:46] LABS: ANION GAP 10.9 mmol/L (5.0-14.0)
[2023-09-26] MEDS: Levothyroxine 50 MCG Tab PO SCH (08:07)
[2023-09-26] MEDS: metFORMIN 500 MG Tab PO SCH (08:59)
[2023-09-26] MEDS: Iopamidol 755 Mg/ML 100 ML Bottle IV ONE (09:13)
[2023-09-26] MEDS: Sodium Chloride 0.9% 100 ML IV SCH (09:14)
[2023-09-26] MEDS: Empagliflozin 10 MG Tab PO SCH (10:18)
[2023-09-26] MEDS: Clopidogrel 75 MG Tab PO SCH (10:20)
[2023-09-26] MEDS: Potassium Chloride 10 MEQ Cap.ER PO SCH (10:20)
[2023-09-26] MEDS: Spironolactone 25 MG Tab PO SCH (10:21)
[2023-09-26] MEDS: Bumetanide 1 MG Tab PO SCH (10:21)
[2023-09-26] MEDS: Albuterol 0.083% 2.5 MG/3 ML Neb Soln NEB PRN (21:34)
[2023-09-26] MEDS: Furosemide 40 MG/4 ML VIAL IVPUSH ONE (22:51)
[2023-09-26] MEDS: methylPREDNISolone Sodium Succinate 40 MG/1 ML SDV IVPUSH ONE (22:51)
[2023-09-26] MEDS: Ondansetron 4 MG/2 ML SDV IV PRN (23:12)
[2023-09-27] MEDS: oxyCODONE 5 MG Tab PO PRN (03:13)
[2023-09-27] MEDS: diphenhydrAMINE 25 MG Cap PO ONE (10:14)
[2023-09-27] MEDS: predniSONE 20 MG Tab PO ONE (10:14)
[2023-09-27] MEDS: Furosemide 40 MG/4 ML VIAL IVPUSH ONE ×2 (16:31→20:24)
[2023-09-27] MEDS: Acetaminophen 500 MG Tab PO PRN (17:10)
[2023-09-27] MEDS: Carvedilol 3.125 MG Tab PO SCH (20:25)
[2023-09-27] MEDS ORDERED: Carvedilol 12.5 MG Tab PO SCH (21:00)
[2023-09-28 05:46] LABS: CALCIUM 9.2 mg/dL (8.5-10.1); CREATININE 0.9 mg/dL (0.6-1.0); EST CRCL DRUG DOSING (CG) 51.41 mL/min; POTASSIUM,K 4.5 mmol/L (3.6-5.2)
[2023-09-28 05:48] LABS: ANION GAP 12.5 mmol/L (5.0-14.0)
[2023-09-28] MEDS: Furosemide 20 MG/2 ML VIAL IVPUSH SCH (18:59)
[2023-09-29 05:53] LABS: CALCIUM 8.9 mg/dL (8.5-10.1); EST CRCL DRUG DOSING (CG) 46.27 mL/min
[2023-09-29] MEDS: Polyethylene Glycol 3350 Powder 17 GM Packet PO PRN (20:28)
[2023-09-30 05:14] LABS: CALCIUM 8.8 mg/dL (8.5-10.1); CREATININE 0.9 mg/dL (0.6-1.0); EST CRCL DRUG DOSING (CG) 51.41 mL/min; POTASSIUM,K 3.6 mmol/L (3.6-5.2)
[2023-09-30 05:19] LABS: ANION GAP 10.6 mmol/L (5.0-14.0)
[2023-09-30] MEDS: Polyethylene Glycol 3350 Powder 17 GM Packet PO ONE (10:32)
[2023-09-30] MEDS: Bisacodyl 10 MG Supp RECTAL ONE (10:35)
[2023-09-30 13:34] VITALS: BP 92/54; PULSE 86
== END 2023-09-30 14:19 | disposition home or self-care (01) | DRG 291 ==
LOC: JP.ED 12:31 → JP.ICU 15:28
PROVIDERS: ADMIT Hospitalist; ATTEND Hospitalist
DX: I11.0 Hypertensive heart disease with heart failure (principal); I50.43 Acute on chronic combined systolic (congestive) and diastolic (congestive) heart failure; J96.21 Acute and chronic respiratory failure with hypoxia; I34.0 Nonrheumatic mitral (valve) insufficiency; H54.7 Unspecified visual loss; E78.00 Pure hypercholesterolemia, unspecified; G47.30 Sleep apnea, unspecified; J45.909 Unspecified asthma, uncomplicated; E11.9 Type 2 diabetes mellitus without complications; Z86.73 Personal history of transient ischemic attack (TIA), and cerebral infarction without residual deficits; E03.9 Hypothyroidism, unspecified; I95.9 Hypotension, unspecified; E66.9 Obesity, unspecified; I08.1 Rheumatic disorders of both mitral and tricuspid valves; Z88.6 Allergy status to analgesic agent; Z91.040 Latex allergy status; Z88.8 Allergy status to other drugs, medicaments and biological substances; Z88.5 Allergy status to narcotic agent; Z79.02 Long term (current) use of antithrombotics/antiplatelets; Z79.899 Other long term (current) drug therapy; Z79.84 Long term (current) use of oral hypoglycemic drugs; Z95.0 Presence of cardiac pacemaker; Z86.74 Personal history of sudden cardiac arrest; Z87.440 Personal history of urinary (tract) infections; Z68.35 Body mass index [BMI] 35.0-35.9, adult; Z98.890 Other specified postprocedural states; Z90.89 Acquired absence of other organs; Z90.49 Acquired absence of other specified parts of digestive tract; Z90.710 Acquired absence of both cervix and uterus; Z90.722 Acquired absence of ovaries, bilateral; Z87.891 Personal history of nicotine dependence; I69.320 Aphasia following cerebral infarction
CPT/HCPCS: 36415; 36600; 71045; 71045-26; 71250; 71250-26; 71275; 71275-26; 80048; 80053; 81001; 82803; 82947; 83605; 83735; 83880; 84145; 84484; 85025; 85027; 85379; 86140; 87040; 93005; 93010; 93306; 94640; 94660; 97162-GP; 97530-GP; 99223; 99232; 99238; 99285; A9270-GY; J1650; J1815; J1940; J1956; J2405; J2543; J2920; J3475; J3490; J7030; J7040; J7512; Q9967

== ENCOUNTER 2023-12-01 17:16 | Emergency (ER) | payer MEDICARE, MEDICAID ==
[2023-12-01] MEDS ORDERED: Sodium Chloride 0.9% 10 ML Syringe FLUSH PRN (17:33)
[2023-12-01 17:46] LABS: ALANINE AMINOTRANSFERASE,ALT 23 U/L (12-78); ALBUMIN 3.6 g/dL (3.4-5.0); ALKALINE PHOSPHATASE 126 U/L (46-116); ASPARTATE AMNIOTRANSFERASE,AST 16 U/L (15-37); BILIRUBIN TOTAL 1.5 mg/dL (0.2-1.0); BLOOD UREA NITROGEN,BUN 17 mg/dL (7-18); C-REACTIVE PROTEIN 0.99 mg/dL (<0.50); CALCIUM 8.9 mg/dL (8.5-10.1); CARBON DIOXIDE,CO2 27 mmol/L (21-32); CHLORIDE,CL 102 mmol/L (100-108); CREATININE 1.2 mg/dL (0.6-1.0); EST CRCL DRUG DOSING (CG) 40.42 mL/min; ESTIMATED GFR 52 mL/min (>60); GLUCOSE RANDOM 185 mg/dL (74-106); PROTEIN TOTAL,TP 7.2 g/dL (6.4-8.2); SODIUM,NA 138 mmol/L (140-148)
[2023-12-01 17:51] LABS: BASE EXCESS ARTERIAL -0.7 mm/L; BICARBONATE,ARTERIAL 23.6 mmol/L (22.0-26.0); CARBOXYHEMOGLOBIN 1.7 % (0.0-1.6); O2 SATURATION ARTERIAL 98.9 % (95.0-98.0); OXYHEMOGLOBIN 96.2 %; PCO2 ARTERIAL 39.9 mmHg (35.0-42.0); TOTAL HEMOGLOBIN 13.6 g/dL (12.0-16.0)
[2023-12-01 17:52] LABS: BASOPHILS ABSOLUTE AUTO 0.07 K/uL (0.00-0.10); BASOPHILS PERCENT AUTO 0.5 % (0.1-1.3); EOSINOPHILS ABSOLUTE AUTO 0.23 K/uL (0.00-0.40); EOSINOPHILS PERCENT AUTO 1.8 % (0.0-5.4); HEMATOCRIT 41.8 % (34.3-46.0); HEMOGLOBIN 13.3 g/dL (11.2-15.5); IMMATURE GRAN ABSOLUTE AUTO 0.04 K/uL (0.00-0.23); IMMATURE GRAN PERCENT AUTO 0.3 % (0.0-0.7); LYMPHOCYTES ABSOLUTE AUTO 2.07 K/uL (0.8-3.3); LYMPHOCYTES PERCENT AUTO 15.8 % (11.4-47.7); MEAN CORPUSCULAR HEMOGLOBIN 25.1 pg (31.6-35.5); MEAN CORPUSCULAR HGB CONC 31.8 g/dL (31.6-35.5); MEAN CORPUSCULAR VOLUME 78.9 fL (81.4-99.0); MONOCYTES ABSOLUTE AUTO 0.39 K/uL (0.20-0.90); NEUTROPHILS ABSOLUTE AUTO 10.29 K/uL (1.0-7.6); NEUTROPHILS PERCENT AUTO 78.6 % (40.0-78.1); PLATELET COUNT,PLT 247 K/uL (130-375); WHITE BLOOD CELL COUNT,WBC 13.1 K/uL (3.2-11.0)
[2023-12-01] MEDS: propofoL 100 ML IV SCH ×2 (17:58→19:56)
[2023-12-01] MEDS: Rocuronium 50 MG/5 ML Vial ONE (18:00)
[2023-12-01] MEDS: Rocuronium 50 MG/5 ML Vial IVPUSH ONE (18:01)
[2023-12-01] MEDS ORDERED: propofoL 100 ML IV SCH (18:15)
[2023-12-01 18:26] LABS: INR 1.1; PROTHROMBIN TIME 10.9 sec (9.2-10.6); PTT,PARTIAL THROMBOPLSTIN TIME 23.7 sec (21.8-27.3)
[2023-12-01] MEDS: Pantoprazole 40 MG Vial IVPUSH ONE (18:32)
[2023-12-01 18:35] LABS: TSH ULTRASENSITIVE 3.707 uIU/mL (0.358-3.740)
[2023-12-01] MEDS: Furosemide 40 MG/4 ML VIAL IVPUSH ONE (18:35)
[2023-12-01] MEDS: Lidocaine 4% Top Soln 50 ML Bottle MUCMEM ONE (18:50)
[2023-12-01] MEDS: Norepinephrine Bit/D5W Premix 4 MG in Premix Bag 1 BAG IV SCH (18:58)
[2023-12-01 19:27] LABS: CORONAVIRUS COVID-19 NAA NEGATIVE (NEGATIVE); INFLUENZA A NAA NEGATIVE (NEGATIVE); INFLUENZA B NAA NEGATIVE (NEGATIVE); RESPIRATORY SYNCYTIAL VIR NAA NEGATIVE (NEGATIVE)
[2023-12-01 20:04] VITALS: BP 64/61; PULSE 95
== END 2023-12-01 20:10 ==
LOC: JP.ED 17:16
DX: R06.03 Acute respiratory distress (principal); I13.0 Hypertensive heart and chronic kidney disease with heart failure and stage 1 through stage 4 chronic kidney disease, or unspecified chronic kidney disease; I50.9 Heart failure, unspecified; N18.9 Chronic kidney disease, unspecified; R09.02 Hypoxemia; R41.82 Altered mental status, unspecified; E78.00 Pure hypercholesterolemia, unspecified; E11.22 Type 2 diabetes mellitus with diabetic chronic kidney disease; J45.909 Unspecified asthma, uncomplicated; E03.9 Hypothyroidism, unspecified; E66.9 Obesity, unspecified; Z90.49 Acquired absence of other specified parts of digestive tract; Z90.710 Acquired absence of both cervix and uterus; Z79.899 Other long term (current) drug therapy; Z79.84 Long term (current) use of oral hypoglycemic drugs; Z88.5 Allergy status to narcotic agent; Z91.040 Latex allergy status; Z88.8 Allergy status to other drugs, medicaments and biological substances
CPT/HCPCS: 0241U; 31500; 36415; 36600; 51702; 71045; 74018; 80053; 82803; 83605; 83880; 84443; 84484; 85025; 85379; 85610; 85730; 86140; 87040; 93005; 96365; 96375; 99285; J1940; J2470; J2704; J3490

== ENCOUNTER 2024-01-12 11:51 | Emergency (ER) | payer MEDICARE, MEDICAID ==
[2024-01-12 12:18] VITALS: BP 140/71; PULSE 76
[2024-01-12] MEDS: Ketorolac 30 MG/ML SDV IM ONE (13:31)
== END 2024-01-12 16:11 | disposition home or self-care (01) ==
LOC: JP.ED 11:51
DX: R10.32 Left lower quadrant pain (principal); I11.0 Hypertensive heart disease with heart failure; I50.9 Heart failure, unspecified; E78.00 Pure hypercholesterolemia, unspecified; E11.9 Type 2 diabetes mellitus without complications; E66.9 Obesity, unspecified; E03.9 Hypothyroidism, unspecified; Z90.49 Acquired absence of other specified parts of digestive tract; Z90.710 Acquired absence of both cervix and uterus; Z79.84 Long term (current) use of oral hypoglycemic drugs; Z79.899 Other long term (current) drug therapy; Z95.0 Presence of cardiac pacemaker; Z79.890 Hormone replacement therapy; Z91.040 Latex allergy status; Z88.5 Allergy status to narcotic agent; Z88.6 Allergy status to analgesic agent
CPT/HCPCS: 72192; 76377; 96372; 99283; J1885

== ENCOUNTER 2024-03-17 21:50 | Inpatient (IN) | payer MEDICARE, MEDICAID ==
[2024-03-17 22:23] LABS: POTASSIUM,ISTAT 5.8 mmol/L (3.5-4.9); SODIUM,ISTAT 133 mmol/L (140-148)
[2024-03-17 22:24] LABS: BASE EXCESS ARTERIAL,ISTAT 2 mmol/L (-2-3); CALCIUM IONIZED,ISTAT 1.14 mmol/L (1.12-1.32); HCO3 ARTERIAL,ISTAT 24.5 mmol/L (22.0-26.0); HEMATOCRIT,ISTAT 40 % (36-48); O2 SATURATION ARTERIAL,ISTAT 100 % (95-98); PCO2 ARTERIAL,ISTAT 29.7 mmHG (35-45); PH ARTERIAL,ISTAT 7.53 (7.35-7.45); PO2 ARTERIAL,ISTAT 188 mmHg (80-105); TCO2 ARTERIAL,ISTAT 25 mmol/L (23-27)
[2024-03-17] MEDS: Sodium Chloride 0.9% 10 ML Syringe FLUSH PRN (22:30)
[2024-03-17] MEDS: Bumetanide 1 MG/4 ML MDV IVPUSH ONE ×2 (22:30→23:27)
[2024-03-17 22:36] LABS: BASOPHILS ABSOLUTE AUTO 0.06 K/uL (0.00-0.10); BASOPHILS PERCENT AUTO 0.5 % (0.1-1.3); EOSINOPHILS PERCENT AUTO 1.5 % (0.0-5.4); HEMATOCRIT 40.6 % (34.3-46.0); HEMOGLOBIN 12.9 g/dL (11.2-15.5); IMMATURE GRAN ABSOLUTE AUTO 0.05 K/uL (0.00-0.23); IMMATURE GRAN PERCENT AUTO 0.4 % (0.0-0.7); LYMPHOCYTES ABSOLUTE AUTO 1.59 K/uL (0.8-3.3); LYMPHOCYTES PERCENT AUTO 12.3 % (11.4-47.7); MEAN CORPUSCULAR HEMOGLOBIN 25.2 pg (31.6-35.5); MEAN CORPUSCULAR HGB CONC 31.8 g/dL (31.6-35.5); MEAN CORPUSCULAR VOLUME 79.3 fL (81.4-99.0); MONOCYTES ABSOLUTE AUTO 0.44 K/uL (0.20-0.90); MONOCYTES PERCENT AUTO 3.4 % (3.3-12.6); NEUTROPHILS ABSOLUTE AUTO 10.61 K/uL (1.0-7.6); NEUTROPHILS PERCENT AUTO 81.9 % (40.0-78.1); PLATELET COUNT,PLT 241 K/uL (130-375); RED BLOOD CELL COUNT 5.12 M/uL (3.77-5.24)
[2024-03-17] MEDS: Morphine 2 MG/ML SYRINGE IVPUSH ONE (22:53)
[2024-03-17 23:05] LABS: A/G RATIO 0.9 (1.2-2.2); ALANINE AMINOTRANSFERASE,ALT 18 U/L (12-78); ALBUMIN 3.6 g/dL (3.4-5.0); ALKALINE PHOSPHATASE 112 U/L (46-116); ASPARTATE AMNIOTRANSFERASE,AST 12 U/L (15-37); BILIRUBIN TOTAL 0.7 mg/dL (0.2-1.0); BLOOD UREA NITROGEN,BUN 24 mg/dL (7-18); CALCIUM 9.9 mg/dL (8.5-10.1); CARBON DIOXIDE,CO2 29 mmol/L (21-32); CHLORIDE,CL 100 mmol/L (100-108); EST CRCL DRUG DOSING (CG) 47.49 mL/min; ESTIMATED GFR 65 mL/min (>60); GLUCOSE RANDOM 137 mg/dL (74-106); POTASSIUM,K 4.9 mmol/L (3.6-5.2); PRO B-TYPE NATRIUR PEPT,BNPPRO 1666 pg/mL (5-125); PROTEIN TOTAL,TP 7.5 g/dL (6.4-8.2); SODIUM,NA 138 mmol/L (140-148); TROPONIN I HIGH SENSITIVITY 21.1 pg/mL (<=60.3)
[2024-03-17 23:06] LABS: ANION GAP 13.9 mmol/L (5.0-14.0)
[2024-03-18] MEDS ORDERED: Non-Formulary Medication 1 Each (Fexofenadine [Allegra] 180 MG Tablet) PO PRN (01:41)
[2024-03-18] MEDS ORDERED: LORazepam 2 MG/ML SDV IVPUSH PRN (02:14)
[2024-03-18] MEDS ORDERED: Melatonin 3 MG Tab PO PRN (02:14)
[2024-03-18] MEDS ORDERED: Sennosides/Docusate Sodium 50-8.6 MG Tab PO PRN (02:14)
[2024-03-18] MEDS ORDERED: Albuterol 0.083% 2.5 MG/3 ML Neb Soln NEB PRN (02:14)
[2024-03-18] MEDS: cefTRIAXone 1 GM in Sodium Chloride 0.9% 50 ML IV SCH (02:47)
[2024-03-18] MEDS: Clopidogrel 75 MG Tab PO SCH (02:49)
[2024-03-18] MEDS: atorvaSTATin 20 MG Tab PO SCH (02:49)
[2024-03-18] MEDS: Gabapentin 100 MG Cap PO SCH (02:49)
[2024-03-18] MEDS: Sacubitril/Valsartan 24 MG-26 MG Tab PO SCH (02:49)
[2024-03-18] MEDS: Doxycycline 100 MG Cap PO SCH (02:49)
[2024-03-18 05:47] LABS: HEMATOCRIT 37.5 % (34.3-46.0); HEMOGLOBIN 11.9 g/dL (11.2-15.5); MEAN CORPUSCULAR HEMOGLOBIN 25.2 pg (31.6-35.5); MEAN CORPUSCULAR HGB CONC 31.7 g/dL (31.6-35.5); MEAN CORPUSCULAR VOLUME 79.3 fL (81.4-99.0); RED BLOOD CELL COUNT 4.73 M/uL (3.77-5.24); WHITE BLOOD CELL COUNT,WBC 10.7 K/uL (3.2-11.0)
[2024-03-18] MEDS: Acetaminophen 325 MG Tab PO PRN (05:55)
[2024-03-18 06:02] LABS: ANION GAP 9.3 mmol/L (5.0-14.0); CALCIUM 9.9 mg/dL (8.5-10.1); EST CRCL DRUG DOSING (CG) 47.91 mL/min
[2024-03-18] MEDS: Albuterol/Ipratropium 3.0-0.5 MG/3 ML Neb Soln NEB SCH (07:01)
[2024-03-18] MEDS: Carvedilol 3.125 MG Tab PO SCH (07:32)
[2024-03-18] MEDS: Levothyroxine 50 MCG Tab PO SCH (07:32)
[2024-03-18] MEDS: metFORMIN 500 MG Tab PO SCH (07:33)
[2024-03-18] MEDS ORDERED: Loratadine 10 MG Tab PO PRN (09:00)
[2024-03-18] MEDS: Spironolactone 25 MG Tab PO SCH (09:02)
[2024-03-18] MEDS: Lactobacillus Rhamnosus GG (Probiotic) Cap PO SCH (09:02)
[2024-03-18] MEDS: Empagliflozin 10 MG Tab PO SCH (09:03)
[2024-03-18] MEDS: Bumetanide 1 MG/4 ML MDV IVPUSH ONE (09:04)
[2024-03-18] MEDS ORDERED: Sodium Chloride 0.9% 10 ML Syringe IV PRN (10:34)
[2024-03-18] MEDS: Bumetanide 1 MG/4 ML MDV IVPUSH SCH (17:51)
[2024-03-18] MEDS ORDERED: cefTRIAXone 1 GM in Water For Injection, Sterile 10 ML IV SCH (22:00)
[2024-03-19 06:03] LABS: CALCIUM 9.7 mg/dL (8.5-10.1); EST CRCL DRUG DOSING (CG) 47.91 mL/min
[2024-03-19 11:20] VITALS: PULSE 87
[2024-03-19 11:53] VITALS: BP 93/39
== END 2024-03-19 13:25 | disposition home or self-care (01) | DRG 291 ==
LOC: JP.ED 21:50 → JP.MS 03-18 01:28
PROVIDERS: ADMIT Registered Nurse; ATTEND Internal Medicine
DX: J96.21 Acute and chronic respiratory failure with hypoxia (principal); I11.0 Hypertensive heart disease with heart failure; I50.9 Heart failure, unspecified; I50.23 Acute on chronic systolic (congestive) heart failure; J96.01 Acute respiratory failure with hypoxia; E66.9 Obesity, unspecified; E78.00 Pure hypercholesterolemia, unspecified; J45.909 Unspecified asthma, uncomplicated; Z66 Do not resuscitate; Z95.0 Presence of cardiac pacemaker; Z79.84 Long term (current) use of oral hypoglycemic drugs; Z79.890 Hormone replacement therapy; Z79.899 Other long term (current) drug therapy; Z88.6 Allergy status to analgesic agent; E03.9 Hypothyroidism, unspecified; E11.9 Type 2 diabetes mellitus without complications; Z68.32 Body mass index [BMI] 32.0-32.9, adult; Z88.5 Allergy status to narcotic agent; Z88.8 Allergy status to other drugs, medicaments and biological substances; Z91.040 Latex allergy status; Z86.73 Personal history of transient ischemic attack (TIA), and cerebral infarction without residual deficits; Z90.49 Acquired absence of other specified parts of digestive tract; Z90.89 Acquired absence of other organs; Z90.710 Acquired absence of both cervix and uterus; Z90.722 Acquired absence of ovaries, bilateral; Z79.4 Long term (current) use of insulin
CPT/HCPCS: 36415; 71045 ×2; 80053; 82803; 83605; 83880; 84145; 84484; 85025; 86140; 93005; 93010; 94660; 96374; 96375; 96376; 99223; 99285 ×2; J2270; J3490 ×3; 80048; 85027; 94640; 97161-GP; 99232; 99233; 99238; A9270-GY; J0696; J7620

== ENCOUNTER 2024-03-25 05:27 | Inpatient (IN) | payer MEDICARE, MEDICAID ==
[2024-03-25 05:38] LABS: BASOPHILS ABSOLUTE AUTO 0.12 K/uL (0.00-0.10); BASOPHILS PERCENT AUTO 0.7 % (0.1-1.3); EOSINOPHILS ABSOLUTE AUTO 0.44 K/uL (0.00-0.40); EOSINOPHILS PERCENT AUTO 2.5 % (0.0-5.4); HEMATOCRIT 44.3 % (34.3-46.0); HEMOGLOBIN 13.9 g/dL (11.2-15.5); IMMATURE GRAN ABSOLUTE AUTO 0.09 K/uL (0.00-0.23); IMMATURE GRAN PERCENT AUTO 0.5 % (0.0-0.7); LYMPHOCYTES ABSOLUTE AUTO 5.35 K/uL (0.8-3.3); LYMPHOCYTES PERCENT AUTO 30.7 % (11.4-47.7); MEAN CORPUSCULAR HEMOGLOBIN 24.9 pg (31.6-35.5); MEAN CORPUSCULAR HGB CONC 31.4 g/dL (31.6-35.5); MEAN CORPUSCULAR VOLUME 79.4 fL (81.4-99.0); MONOCYTES ABSOLUTE AUTO 0.35 K/uL (0.20-0.90); NEUTROPHILS ABSOLUTE AUTO 11.07 K/uL (1.0-7.6); NEUTROPHILS PERCENT AUTO 63.6 % (40.0-78.1); PLATELET COUNT,PLT 322 K/uL (130-375); RED BLOOD CELL COUNT 5.58 M/uL (3.77-5.24); WHITE BLOOD CELL COUNT,WBC 17.4 K/uL (3.2-11.0)
[2024-03-25 05:41] LABS: BICARBONATE,ARTERIAL 20.7 mmol/L (22.0-26.0); CARBOXYHEMOGLOBIN 1.3 % (0.0-1.6); METHEMOGLOBIN 0.9 %; O2 SATURATION ARTERIAL 97.1 % (95.0-98.0); PCO2 ARTERIAL 42.7 mmHg (35.0-42.0); TOTAL HEMOGLOBIN 14.5 g/dL (12.0-16.0)
[2024-03-25] MEDS: Sodium Chloride 0.9% 10 ML Syringe FLUSH PRN (05:45)
[2024-03-25] MEDS: Bumetanide 1 MG/4 ML MDV IVPUSH ONE (05:45)
[2024-03-25] MEDS: Nitroglycerin 0.4 MG Tab.SL SL ONE (05:45)
[2024-03-25 05:57] LABS: ALANINE AMINOTRANSFERASE,ALT 21 U/L (12-78); ALBUMIN 3.7 g/dL (3.4-5.0); ALKALINE PHOSPHATASE 123 U/L (46-116); ASPARTATE AMNIOTRANSFERASE,AST 14 U/L (15-37); BLOOD UREA NITROGEN,BUN 38 mg/dL (7-18); CALCIUM 9.8 mg/dL (8.5-10.1); CARBON DIOXIDE,CO2 21 mmol/L (21-32); CHLORIDE,CL 96 mmol/L (100-108); CREATININE 1.3 mg/dL (0.6-1.0); EST CRCL DRUG DOSING (CG) 35.16 mL/min; ESTIMATED GFR 47 mL/min (>60); GLUCOSE RANDOM 339 mg/dL (74-106); POTASSIUM,K 4.2 mmol/L (3.6-5.2); PRO B-TYPE NATRIUR PEPT,BNPPRO 2643 pg/mL (5-125); PROTEIN TOTAL,TP 7.6 g/dL (6.4-8.2); SODIUM,NA 132 mmol/L (140-148); TROPONIN I HIGH SENSITIVITY 15.7 pg/mL (<=60.3)
[2024-03-25 05:58] LABS: ANION GAP 19.2 mmol/L (5.0-14.0)
[2024-03-25] MEDS: Morphine 2 MG/ML SYRINGE IVPUSH ONE (05:58)
[2024-03-25 06:31] LABS: APPEARANCE,URINE CLEAR (CLEAR); BILIRUBIN,URINE NEGATIVE (NEGATIVE); COLOR,URINE YELLOW (YELLOW); GLUCOSE,URINE 500 mg/dL (NEGATIVE); KETONES,URINE NEGATIVE (NEGATIVE); LEUKOCYTE ESTERASE,URINE NEGATIVE (NEGATIVE); NITRITE,URINE NEGATIVE (NEGATIVE); OCCULT BLOOD,URINE NEGATIVE (NEGATIVE); PH,URINE 5.5 (5.0-8.0); PROTEIN,URINE NEGATIVE (NEGATIVE); UROBILINOGEN,URINE 0.2 EU/dL (0.2-1.0)
[2024-03-25 06:37] LABS: AMORPHOUS SEDIMENT,URINE NOT SEEN; BACTERIA,URINE RARE; EPITHELIAL CELLS,URINE RARE; MUCUS,URINE NOT SEEN; RBC,URINE 0-5 (0-5); WBC,URINE 0-5 (0-5)
[2024-03-25] MEDS: cefTRIAXone 1 GM in Sodium Chloride 0.9% 50 ML IV ONE (06:58)
[2024-03-25 07:11] LABS: CORONAVIRUS COVID-19 NAA NEGATIVE (NEGATIVE); INFLUENZA A NAA NEGATIVE (NEGATIVE); INFLUENZA B NAA NEGATIVE (NEGATIVE); RESPIRATORY SYNCYTIAL VIR NAA NEGATIVE (NEGATIVE)
[2024-03-25] MEDS ORDERED: Ondansetron 4 MG Tab.DIS PO PRN (08:17)
[2024-03-25] MEDS ORDERED: Albuterol 0.083% 2.5 MG/3 ML Neb Soln NEB PRN (08:17)
[2024-03-25] MEDS ORDERED: Magnesium Hydroxide 400 MG/5 ML Susp 30 ML Cup PO PRN (08:17)
[2024-03-25] MEDS ORDERED: LORazepam 2 MG/ML SDV IVPUSH PRN (08:17)
[2024-03-25] MEDS: Nitroglycerin 0.4 MG Tab.SL ONE (09:17)
[2024-03-25] MEDS: Spironolactone 25 MG Tab PO SCH (09:59)
[2024-03-25] MEDS: Sacubitril/Valsartan 24 MG-26 MG Tab PO SCH (10:02)
[2024-03-25] MEDS: Empagliflozin 10 MG Tab PO SCH (10:02)
[2024-03-25] MEDS: metFORMIN 500 MG Tab PO SCH (10:02)
[2024-03-25] MEDS: Carvedilol 3.125 MG Tab PO SCH (10:02)
[2024-03-25] MEDS: Potassium Chloride 10 MEQ Cap.ER PO SCH (10:03)
[2024-03-25] MEDS: Gabapentin 100 MG Cap PO SCH (10:03)
[2024-03-25] MEDS: Clopidogrel 75 MG Tab PO SCH (10:03)
[2024-03-25] MEDS: Acetaminophen 325 MG Tab PO PRN (10:23)
[2024-03-25] MEDS ORDERED: Sodium Chloride 0.9% 150 ML Bag IV PRN (12:43)
[2024-03-25] MEDS: Sodium Chloride 0.9% 250 ML IV ONE (12:53)
[2024-03-25] MEDS ORDERED: Glucagon,Human Recombinant 1 MG Vial IM PRN (14:14)
[2024-03-25] MEDS ORDERED: 50% Dextrose in Water 50 ML Syringe IVPUSH PRN (14:14)
[2024-03-25] MEDS ORDERED: Norepinephrine Bit/D5W Premix 250 ML IV SCH (14:30)
[2024-03-25] MEDS: Norepinephrine Bit/D5W Premix 4 MG in Premix Bag 1 BAG IV SCH (14:39)
[2024-03-25] MEDS: Bumetanide 2.5 MG/10 ML MDV IVPUSH SCH (14:49)
[2024-03-25] MEDS: Insulin Lispro 100 Unit/ML 3 ML KwikPen SUBCUT SCH (17:48)
[2024-03-25] MEDS: Azithromycin 500 MG in Sodium Chloride 0.9% 250 ML IV SCH (19:45)
[2024-03-25] MEDS: atorvaSTATin 20 MG Tab PO SCH (20:26)
[2024-03-26 04:18] LABS: BASE EXCESS ARTERIAL 2.8 mm/L; BICARBONATE,ARTERIAL 26.3 mmol/L (22.0-26.0); METHEMOGLOBIN 0.8 %; O2 SATURATION ARTERIAL 96.7 % (95.0-98.0); PCO2 ARTERIAL 38.6 mmHg (35.0-42.0); PO2 ARTERIAL 82.4 mmHg (75.0-100.0)
[2024-03-26 04:19] LABS: HEMOGLOBIN 12.5 g/dL (11.2-15.5); MEAN CORPUSCULAR HEMOGLOBIN 25.2 pg (31.6-35.5); MEAN CORPUSCULAR HGB CONC 32.1 g/dL (31.6-35.5); MEAN CORPUSCULAR VOLUME 78.6 fL (81.4-99.0); RED BLOOD CELL COUNT 4.96 M/uL (3.77-5.24); WHITE BLOOD CELL COUNT,WBC 12.8 K/uL (3.2-11.0)
[2024-03-26 04:44] LABS: ALANINE AMINOTRANSFERASE,ALT 20 U/L (12-78); ALBUMIN 3.5 g/dL (3.4-5.0); ALKALINE PHOSPHATASE 103 U/L (46-116); ASPARTATE AMNIOTRANSFERASE,AST 13 U/L (15-37); BILIRUBIN TOTAL 1.4 mg/dL (0.2-1.0); BLOOD UREA NITROGEN,BUN 22 mg/dL (7-18); CALCIUM 9.1 mg/dL (8.5-10.1); CARBON DIOXIDE,CO2 26 mmol/L (21-32); CHLORIDE,CL 98 mmol/L (100-108); EST CRCL DRUG DOSING (CG) 45.71 mL/min; ESTIMATED GFR 65 mL/min (>60); GLUCOSE RANDOM 164 mg/dL (74-106); POTASSIUM,K 3.5 mmol/L (3.6-5.2); PRO B-TYPE NATRIUR PEPT,BNPPRO 2779 pg/mL (5-125); PROTEIN TOTAL,TP 7.1 g/dL (6.4-8.2); SODIUM,NA 136 mmol/L (140-148)
[2024-03-26 05:32] LABS: ANION GAP 15.5 mmol/L (5.0-14.0)
[2024-03-26] MEDS ORDERED: cefTRIAXone 2 GM in Sodium Chloride 0.9% 50 ML IV SCH (07:00)
[2024-03-26] MEDS: Levothyroxine 50 MCG Tab PO SCH (08:10)
[2024-03-26] MEDS: cefTRIAXone 2 GM in Sodium Chloride 0.9% 50 ML IV SCH (08:14)
[2024-03-26] MEDS ORDERED: Docusate Sodium 100 MG Cap PO PRN (11:29)
[2024-03-26] MEDS: Polyethylene Glycol 3350 Powder 17 GM Packet PO SCH (11:42)
[2024-03-26] MEDS: Sennosides/Docusate Sodium 50-8.6 MG Tab PO PRN (11:42)
[2024-03-26] MEDS: Ondansetron 4 MG/2 ML SDV IV PRN (17:14)
[2024-03-27 05:21] LABS: BASOPHILS ABSOLUTE AUTO 0.05 K/uL (0.00-0.10); BASOPHILS PERCENT AUTO 0.5 % (0.1-1.3); EOSINOPHILS ABSOLUTE AUTO 0.46 K/uL (0.00-0.40); EOSINOPHILS PERCENT AUTO 4.6 % (0.0-5.4); HEMATOCRIT 39.2 % (34.3-46.0); HEMOGLOBIN 12.3 g/dL (11.2-15.5); IMMATURE GRAN PERCENT AUTO 0.2 % (0.0-0.7); LYMPHOCYTES ABSOLUTE AUTO 3.09 K/uL (0.8-3.3); LYMPHOCYTES PERCENT AUTO 30.9 % (11.4-47.7); MEAN CORPUSCULAR HEMOGLOBIN 25.2 pg (31.6-35.5); MEAN CORPUSCULAR HGB CONC 31.4 g/dL (31.6-35.5); MEAN CORPUSCULAR VOLUME 80.2 fL (81.4-99.0); MONOCYTES ABSOLUTE AUTO 0.58 K/uL (0.20-0.90); MONOCYTES PERCENT AUTO 5.8 % (3.3-12.6); NEUTROPHILS ABSOLUTE AUTO 5.79 K/uL (1.0-7.6); PLATELET COUNT,PLT 264 K/uL (130-375); RED BLOOD CELL COUNT 4.89 M/uL (3.77-5.24)
[2024-03-27 05:23] LABS: IMMATURE GRAN ABSOLUTE AUTO 0.02 K/uL (0.00-0.23)
[2024-03-27 05:51] LABS: ALANINE AMINOTRANSFERASE,ALT 20 U/L (12-78); ALBUMIN 3.4 g/dL (3.4-5.0); ALKALINE PHOSPHATASE 102 U/L (46-116); ASPARTATE AMNIOTRANSFERASE,AST 12 U/L (15-37); BILIRUBIN TOTAL 0.8 mg/dL (0.2-1.0); BLOOD UREA NITROGEN,BUN 21 mg/dL (7-18); CALCIUM 10.1 mg/dL (8.5-10.1); CARBON DIOXIDE,CO2 32 mmol/L (21-32); CHLORIDE,CL 99 mmol/L (100-108); CREATININE 0.9 mg/dL (0.6-1.0); EST CRCL DRUG DOSING (CG) 50.79 mL/min; ESTIMATED GFR 74 mL/min (>60); GLUCOSE RANDOM 160 mg/dL (74-106); POTASSIUM,K 4.5 mmol/L (3.6-5.2); PRO B-TYPE NATRIUR PEPT,BNPPRO 1714 pg/mL (5-125); PROTEIN TOTAL,TP 6.7 g/dL (6.4-8.2); SODIUM,NA 138 mmol/L (140-148)
[2024-03-27 05:55] LABS: ANION GAP 11.5 mmol/L (5.0-14.0)
[2024-03-27] MEDS: Bumetanide 2.5 MG/10 ML MDV IVPUSH SCH (08:07)
[2024-03-27] MEDS: Azithromycin 250 MG Tab PO SCH (10:00)
[2024-03-27] MEDS: Bisacodyl 10 MG Supp RECTAL PRN (14:03)
[2024-03-27] MEDS ORDERED: Sodium Phosphate,Monobasic/Sodium Phosphate,Dibasic Enema 133 ML Bottle RECTAL PRN (17:00)
[2024-03-28 05:10] LABS: BASOPHILS ABSOLUTE AUTO 0.05 K/uL (0.00-0.10); BASOPHILS PERCENT AUTO 0.5 % (0.1-1.3); EOSINOPHILS ABSOLUTE AUTO 0.45 K/uL (0.00-0.40); EOSINOPHILS PERCENT AUTO 4.5 % (0.0-5.4); HEMATOCRIT 37.8 % (34.3-46.0); HEMOGLOBIN 11.8 g/dL (11.2-15.5); IMMATURE GRAN ABSOLUTE AUTO 0.03 K/uL (0.00-0.23); IMMATURE GRAN PERCENT AUTO 0.3 % (0.0-0.7); LYMPHOCYTES ABSOLUTE AUTO 2.55 K/uL (0.8-3.3); LYMPHOCYTES PERCENT AUTO 25.4 % (11.4-47.7); MEAN CORPUSCULAR HEMOGLOBIN 25.3 pg (31.6-35.5); MEAN CORPUSCULAR HGB CONC 31.2 g/dL (31.6-35.5); MEAN CORPUSCULAR VOLUME 80.9 fL (81.4-99.0); MONOCYTES ABSOLUTE AUTO 0.53 K/uL (0.20-0.90); MONOCYTES PERCENT AUTO 5.3 % (3.3-12.6); NEUTROPHILS ABSOLUTE AUTO 6.44 K/uL (1.0-7.6); PLATELET COUNT,PLT 242 K/uL (130-375); RED BLOOD CELL COUNT 4.67 M/uL (3.77-5.24); WHITE BLOOD CELL COUNT,WBC 10.1 K/uL (3.2-11.0)
[2024-03-28 05:45] LABS: A/G RATIO 0.9 (1.2-2.2); ALANINE AMINOTRANSFERASE,ALT 20 U/L (12-78); ALBUMIN 3.3 g/dL (3.4-5.0); ALKALINE PHOSPHATASE 103 U/L (46-116); ASPARTATE AMNIOTRANSFERASE,AST 15 U/L (15-37); BILIRUBIN TOTAL 0.7 mg/dL (0.2-1.0); BLOOD UREA NITROGEN,BUN 19 mg/dL (7-18); CALCIUM 10.1 mg/dL (8.5-10.1); CARBON DIOXIDE,CO2 29 mmol/L (21-32); CHLORIDE,CL 99 mmol/L (100-108); CREATININE 0.9 mg/dL (0.6-1.0); EST CRCL DRUG DOSING (CG) 50.79 mL/min; ESTIMATED GFR 74 mL/min (>60); GLUCOSE RANDOM 138 mg/dL (74-106); POTASSIUM,K 4.4 mmol/L (3.6-5.2); PRO B-TYPE NATRIUR PEPT,BNPPRO 2815 pg/mL (5-125); PROTEIN TOTAL,TP 6.9 g/dL (6.4-8.2); SODIUM,NA 136 mmol/L (140-148)
[2024-03-28 05:47] LABS: ANION GAP 12.4 mmol/L (5.0-14.0)
[2024-03-28 09:09] VITALS: BP 99/61; PULSE 97
[2024-03-28] MEDS: FLU (Fluarix Triv) TS24-25(6MOS UP)/PF 45 MCG/0.5 ML Syringe IM ONE (10:45)
== END 2024-03-28 10:20 | disposition home or self-care (01) | DRG 871 ==
LOC: JP.ED 05:27 → JP.ICU 07:39
PROVIDERS: ADMIT Hospitalist; ATTEND Hospitalist
PROC: 3E03329 Introduction of Other Anti-infective into Peripheral Vein, Percutaneous Approach (ICD-10-PCS; principal; 2024-03-25)
PROC: 3E033XZ Introduction of Vasopressor into Peripheral Vein, Percutaneous Approach (ICD-10-PCS; 2024-03-25)
DX: A41.9 Sepsis, unspecified organism (principal); I50.43 Acute on chronic combined systolic (congestive) and diastolic (congestive) heart failure; I50.23 Acute on chronic systolic (congestive) heart failure; J18.9 Pneumonia, unspecified organism; I25.2 Old myocardial infarction; J96.01 Acute respiratory failure with hypoxia; E11.9 Type 2 diabetes mellitus without complications; E87.20 Acidosis, unspecified; R65.20 Severe sepsis without septic shock; E03.9 Hypothyroidism, unspecified; Z95.1 Presence of aortocoronary bypass graft; I11.0 Hypertensive heart disease with heart failure; H54.7 Unspecified visual loss; Z68.33 Body mass index [BMI] 33.0-33.9, adult; E66.9 Obesity, unspecified; Z88.6 Allergy status to analgesic agent; E78.00 Pure hypercholesterolemia, unspecified; J45.909 Unspecified asthma, uncomplicated; E11.42 Type 2 diabetes mellitus with diabetic polyneuropathy; G47.30 Sleep apnea, unspecified; Z95.0 Presence of cardiac pacemaker; Z88.5 Allergy status to narcotic agent; Z86.73 Personal history of transient ischemic attack (TIA), and cerebral infarction without residual deficits; Z90.49 Acquired absence of other specified parts of digestive tract; Z79.02 Long term (current) use of antithrombotics/antiplatelets; Z79.84 Long term (current) use of oral hypoglycemic drugs; Z91.040 Latex allergy status; Z79.899 Other long term (current) drug therapy; Z90.710 Acquired absence of both cervix and uterus; Z98.890 Other specified postprocedural states; Z87.891 Personal history of nicotine dependence
CPT/HCPCS: 0241U; 36415; 36600; 71045; 71250; 74019; 80053; 81001; 82803; 82947; 83605; 83880; 84145; 84484; 85025; 85027; 86140; 87040; 93005; 93010; 96365; 96375; 99223; 99239; 99285; 99291; A9270-GY; J0456; J0696; J1815; J2270; J2405; J3490; J7050

== ENCOUNTER 2024-03-28 20:48 | Emergency (ER) | payer MEDICARE, MEDICAID ==
[2024-03-28] MEDS ORDERED: Bumetanide 1 MG/4 ML MDV IVPUSH ONE (21:10)
[2024-03-28] MEDS: Furosemide 40 MG/4 ML VIAL IVPUSH ONE (21:21)
[2024-03-28] MEDS: Bumetanide 1 MG/4 ML MDV IVPUSH ONE (21:29)
[2024-03-28] MEDS: Ondansetron 4 MG/2 ML SDV IVPUSH ONE (21:42)
[2024-03-28 22:07] LABS: CALCIUM 10.2 mg/dL (8.5-10.1); EST CRCL DRUG DOSING (CG) 45.76 mL/min; POTASSIUM,K 4.6 mmol/L (3.6-5.2)
[2024-03-28 22:08] LABS: ANION GAP 19.6 mmol/L (5.0-14.0)
[2024-03-29 00:04] VITALS: BP 137/59; PULSE 112
== END 2024-03-29 00:29 ==
LOC: JP.ED 20:48
DX: I11.0 Hypertensive heart disease with heart failure (principal); I50.23 Acute on chronic systolic (congestive) heart failure; I50.1 Left ventricular failure, unspecified; R11.2 Nausea with vomiting, unspecified; E78.00 Pure hypercholesterolemia, unspecified; J45.909 Unspecified asthma, uncomplicated; E11.9 Type 2 diabetes mellitus without complications; E03.9 Hypothyroidism, unspecified; E66.9 Obesity, unspecified; Z68.33 Body mass index [BMI] 33.0-33.9, adult; Z86.16 Personal history of COVID-19; Z90.49 Acquired absence of other specified parts of digestive tract; Z90.710 Acquired absence of both cervix and uterus; Z79.84 Long term (current) use of oral hypoglycemic drugs; Z95.0 Presence of cardiac pacemaker; Z79.899 Other long term (current) drug therapy; Z88.8 Allergy status to other drugs, medicaments and biological substances; Z91.040 Latex allergy status; Z88.6 Allergy status to analgesic agent; Z88.5 Allergy status to narcotic agent
CPT/HCPCS: 36415; 71045; 80048; 83880; 84484; 93005; 96374; 96375; 99285; J2405; J3490

== ENCOUNTER 2024-04-27 22:15 | Inpatient (IN) | payer MEDICARE, MEDICAID ==
[2024-04-27 23:13] LABS: BASOPHILS ABSOLUTE AUTO 0.07 K/uL (0.00-0.10); BASOPHILS PERCENT AUTO 0.4 % (0.1-1.3); EOSINOPHILS ABSOLUTE AUTO 0.16 K/uL (0.00-0.40); HEMATOCRIT 43.2 % (34.3-46.0); HEMOGLOBIN 13.6 g/dL (11.2-15.5); IMMATURE GRAN ABSOLUTE AUTO 0.09 K/uL (0.00-0.23); IMMATURE GRAN PERCENT AUTO 0.6 % (0.0-0.7); LYMPHOCYTES ABSOLUTE AUTO 1.46 K/uL (0.8-3.3); LYMPHOCYTES PERCENT AUTO 9.1 % (11.4-47.7); MEAN CORPUSCULAR HEMOGLOBIN 25.4 pg (31.6-35.5); MEAN CORPUSCULAR HGB CONC 31.5 g/dL (31.6-35.5); MEAN CORPUSCULAR VOLUME 80.6 fL (81.4-99.0); MONOCYTES PERCENT AUTO 1.9 % (3.3-12.6); NEUTROPHILS ABSOLUTE AUTO 13.89 K/uL (1.0-7.6); PLATELET COUNT,PLT 297 K/uL (130-375); RED BLOOD CELL COUNT 5.36 M/uL (3.77-5.24)
[2024-04-27 23:23] LABS: POTASSIUM,ISTAT 3.8 mmol/L (3.5-4.9); SODIUM,ISTAT 136 mmol/L (140-148)
[2024-04-27 23:25] LABS: BASE EXCESS ARTERIAL,ISTAT -1 mmol/L (-2-3); CALCIUM IONIZED,ISTAT 1.02 mmol/L (1.12-1.32); HCO3 ARTERIAL,ISTAT 21.8 mmol/L (22.0-26.0); HEMATOCRIT,ISTAT 42 % (36-48); O2 SATURATION ARTERIAL,ISTAT 98 % (95-98); PCO2 ARTERIAL,ISTAT 24.9 mmHG (35-45); PH ARTERIAL,ISTAT 7.55 (7.35-7.45); PO2 ARTERIAL,ISTAT 84 mmHg (80-105); TCO2 ARTERIAL,ISTAT 23 mmol/L (23-27)
[2024-04-27 23:37] LABS: A/G RATIO 0.9 (1.2-2.2); ALANINE AMINOTRANSFERASE,ALT 17 U/L (12-78); ALBUMIN 3.8 g/dL (3.4-5.0); ALKALINE PHOSPHATASE 133 U/L (46-116); ASPARTATE AMNIOTRANSFERASE,AST 16 U/L (15-37); BILIRUBIN TOTAL 1.1 mg/dL (0.2-1.0); BLOOD UREA NITROGEN,BUN 25 mg/dL (7-18); CALCIUM 10.2 mg/dL (8.5-10.1); CARBON DIOXIDE,CO2 26 mmol/L (21-32); CHLORIDE,CL 100 mmol/L (100-108); CREATININE 1.3 mg/dL (0.6-1.0); ESTIMATED GFR 47 mL/min (>60); GLUCOSE RANDOM 187 mg/dL (74-106); POTASSIUM,K 3.1 mmol/L (3.6-5.2); PRO B-TYPE NATRIUR PEPT,BNPPRO 2342 pg/mL (5-125); PROTEIN TOTAL,TP 7.9 g/dL (6.4-8.2); SODIUM,NA 140 mmol/L (140-148)
[2024-04-27 23:38] LABS: ANION GAP 17.1 mmol/L (5.0-14.0)
[2024-04-27] MEDS: Bumetanide 1 MG/4 ML MDV IVPUSH ONE (23:59)
[2024-04-28 00:22] LABS: CORONAVIRUS COVID-19 NAA NEGATIVE (NEGATIVE); INFLUENZA A NAA NEGATIVE (NEGATIVE); INFLUENZA B NAA NEGATIVE (NEGATIVE); RESPIRATORY SYNCYTIAL VIR NAA NEGATIVE (NEGATIVE)
[2024-04-28 01:34] LABS: APPEARANCE,URINE CLEAR (CLEAR); BILIRUBIN,URINE NEGATIVE (NEGATIVE); COLOR,URINE YELLOW (YELLOW); GLUCOSE,URINE 500 mg/dL (NEGATIVE); KETONES,URINE NEGATIVE (NEGATIVE); LEUKOCYTE ESTERASE,URINE NEGATIVE (NEGATIVE); NITRITE,URINE NEGATIVE (NEGATIVE); OCCULT BLOOD,URINE NEGATIVE (NEGATIVE); PH,URINE 5.5 (5.0-8.0); PROTEIN,URINE NEGATIVE (NEGATIVE); UROBILINOGEN,URINE 0.2 EU/dL (0.2-1.0)
[2024-04-28 01:42] LABS: AMORPHOUS SEDIMENT,URINE FEW; BACTERIA,URINE FEW; EPITHELIAL CELLS,URINE RARE; MUCUS,URINE NOT SEEN; RBC,URINE 0-5 (0-5); WBC,URINE 0-5 (0-5)
[2024-04-28] MEDS: Cefepime 2 GM in Sodium Chloride 0.9% 50 ML IV SCH (01:52)
[2024-04-28] MEDS: Potassium Chloride 100 ML ONE (01:54)
[2024-04-28] MEDS: Potassium Chloride 10 MEQ in Premix Bag 1 BAG IV ONE ×2 (02:07→03:22)
[2024-04-28] MEDS ORDERED: LORazepam 2 MG/ML SDV IV PRN (02:25)
[2024-04-28] MEDS ORDERED: Morphine 2 MG/ML SYRINGE IVPUSH PRN (02:25)
[2024-04-28] MEDS ORDERED: Naloxone 0.4 MG/ML SDV IVPUSH PRN (02:25)
[2024-04-28] MEDS ORDERED: Sodium Chloride 0.9% 10 ML Syringe FLUSH PRN (02:25)
[2024-04-28] MEDS ORDERED: Albuterol 0.083% 2.5 MG/3 ML Neb Soln NEB PRN (02:25)
[2024-04-28] MEDS ORDERED: Promethazine 25 MG Tab PO PRN (02:25)
[2024-04-28] MEDS ORDERED: Insulin Lispro 100 Unit/ML 3 ML KwikPen SUBCUT SCH (02:45)
[2024-04-28] MEDS: Azithromycin 500 MG Vial ONE (04:02)
[2024-04-28] MEDS: Sodium Chloride 0.9% 250 ML ONE (04:02)
[2024-04-28] MEDS: Azithromycin 500 MG in Sodium Chloride 0.9% 250 ML IV ONE (04:05)
[2024-04-28] MEDS: Potassium Chloride 20 MEQ Tab.ER PO ONE (04:08)
[2024-04-28] MEDS: Acetaminophen 325 MG Tab PO PRN (05:22)
[2024-04-28] MEDS: Albuterol/Ipratropium 3.0-0.5 MG/3 ML Neb Soln NEB SCH ×2 (07:18→10:38)
[2024-04-28] MEDS ORDERED: Loratadine 10 MG Tab PO PRN (07:29)
[2024-04-28] MEDS ORDERED: Carvedilol 12.5 MG Tab PO SCH (08:00)
[2024-04-28 08:42] LABS: HEMATOCRIT 37.6 % (34.3-46.0); MEAN CORPUSCULAR HEMOGLOBIN 25.5 pg (31.6-35.5); MEAN CORPUSCULAR HGB CONC 31.9 g/dL (31.6-35.5); MEAN CORPUSCULAR VOLUME 79.8 fL (81.4-99.0); RED BLOOD CELL COUNT 4.71 M/uL (3.77-5.24); WHITE BLOOD CELL COUNT,WBC 13.4 K/uL (3.2-11.0)
[2024-04-28] MEDS: Bumetanide 1 MG Tab PO SCH (08:50)
[2024-04-28] MEDS: Spironolactone 25 MG Tab PO SCH (08:50)
[2024-04-28] MEDS: Carvedilol 3.125 MG Tab PO SCH (08:50)
[2024-04-28] MEDS: Clopidogrel 75 MG Tab PO SCH (08:51)
[2024-04-28] MEDS: Potassium Chloride 10 MEQ Cap.ER PO SCH (08:51)
[2024-04-28] MEDS: metFORMIN 500 MG Tab PO SCH (08:51)
[2024-04-28] MEDS: Levothyroxine 50 MCG Tab PO SCH (08:51)
[2024-04-28] MEDS: Gabapentin 100 MG Cap PO SCH (08:51)
[2024-04-28] MEDS: Sacubitril/Valsartan 24 MG-26 MG Tab PO SCH (08:51)
[2024-04-28] MEDS: Empagliflozin 10 MG Tab PO SCH (08:52)
[2024-04-28 09:01] LABS: CALCIUM 9.2 mg/dL (8.5-10.1); CREATININE 1.1 mg/dL (0.6-1.0); EST CRCL DRUG DOSING (CG) 41.55 mL/min
[2024-04-28] MEDS ORDERED: Bumetanide 1 MG Tab PO SCH (14:00)
[2024-04-28] MEDS: Insulin Lispro 100 Unit/ML 3 ML KwikPen SUBCUT SCH (17:11)
[2024-04-28] MEDS: Bumetanide 2.5 MG/10 ML MDV IVPUSH SCH (18:15)
[2024-04-28] MEDS: atorvaSTATin 20 MG Tab PO SCH (21:05)
[2024-04-29 05:58] LABS: HEMATOCRIT 35.3 % (34.3-46.0); HEMOGLOBIN 11.2 g/dL (11.2-15.5); MEAN CORPUSCULAR HEMOGLOBIN 25.4 pg (31.6-35.5); MEAN CORPUSCULAR HGB CONC 31.7 g/dL (31.6-35.5); RED BLOOD CELL COUNT 4.41 M/uL (3.77-5.24); WHITE BLOOD CELL COUNT,WBC 9.4 K/uL (3.2-11.0)
[2024-04-29] MEDS ORDERED: Azithromycin 500 MG in Sodium Chloride 0.9% 250 ML IV SCH (06:00)
[2024-04-29 06:15] LABS: CALCIUM 9.3 mg/dL (8.5-10.1); EST CRCL DRUG DOSING (CG) 45.71 mL/min; POTASSIUM,K 3.6 mmol/L (3.6-5.2)
[2024-04-29 06:16] LABS: ANION GAP 11.6 mmol/L (5.0-14.0)
[2024-04-29] MEDS: Azithromycin 250 MG Tab PO SCH (09:16)
[2024-04-29] MEDS: Potassium Chloride 20 MEQ Tab.ER PO ONE (09:24)
[2024-04-30] MEDS: Bisacodyl 5 MG Tab PO PRN (00:53)
[2024-04-30] MEDS: Docusate Sodium 100 MG Cap PO PRN (00:53)
[2024-04-30 05:20] LABS: HEMATOCRIT 35.9 % (34.3-46.0); HEMOGLOBIN 11.5 g/dL (11.2-15.5); MEAN CORPUSCULAR HEMOGLOBIN 25.2 pg (31.6-35.5); MEAN CORPUSCULAR VOLUME 78.7 fL (81.4-99.0); RED BLOOD CELL COUNT 4.56 M/uL (3.77-5.24); WHITE BLOOD CELL COUNT,WBC 11.9 K/uL (3.2-11.0)
[2024-04-30 05:36] LABS: C-REACTIVE PROTEIN 1.95 mg/dL (<0.50); CALCIUM 9.9 mg/dL (8.5-10.1); EST CRCL DRUG DOSING (CG) 45.71 mL/min; POTASSIUM,K 3.8 mmol/L (3.6-5.2)
[2024-04-30 05:37] LABS: ANION GAP 11.8 mmol/L (5.0-14.0)
[2024-05-01 05:48] VITALS: PULSE 64
[2024-05-01 05:51] LABS: HEMATOCRIT 36.9 % (34.3-46.0); MEAN CORPUSCULAR HEMOGLOBIN 25.5 pg (31.6-35.5); MEAN CORPUSCULAR HGB CONC 32.5 g/dL (31.6-35.5); MEAN CORPUSCULAR VOLUME 78.3 fL (81.4-99.0); RED BLOOD CELL COUNT 4.71 M/uL (3.77-5.24); WHITE BLOOD CELL COUNT,WBC 10.2 K/uL (3.2-11.0)
[2024-05-01 06:10] LABS: ANION GAP 8.6 mmol/L (5.0-14.0); CALCIUM 9.8 mg/dL (8.5-10.1); EST CRCL DRUG DOSING (CG) 45.71 mL/min; POTASSIUM,K 3.6 mmol/L (3.6-5.2)
[2024-05-01] MEDS: Potassium Chloride 20 MEQ Tab.ER PO ONE (09:57)
[2024-05-01 10:53] VITALS: BP 88/56
== END 2024-05-01 14:20 | disposition home or self-care (01) | DRG 291 ==
LOC: JP.ED 22:15 → JP.MS 04-28 01:30
PROVIDERS: ADMIT Nurse Practitioner; ATTEND Internal Medicine
PROC: 4A033R1 Measurement of Arterial Saturation, Peripheral, Percutaneous Approach (ICD-10-PCS; principal; 2024-04-27)
DX: I13.0 Hypertensive heart and chronic kidney disease with heart failure and stage 1 through stage 4 chronic kidney disease, or unspecified chronic kidney disease (principal); J18.9 Pneumonia, unspecified organism; I11.0 Hypertensive heart disease with heart failure; I50.9 Heart failure, unspecified; I50.23 Acute on chronic systolic (congestive) heart failure; E11.9 Type 2 diabetes mellitus without complications; J96.01 Acute respiratory failure with hypoxia; J20.9 Acute bronchitis, unspecified; H54.7 Unspecified visual loss; Z79.02 Long term (current) use of antithrombotics/antiplatelets; J45.909 Unspecified asthma, uncomplicated; E78.00 Pure hypercholesterolemia, unspecified; G47.30 Sleep apnea, unspecified; E03.9 Hypothyroidism, unspecified; E66.9 Obesity, unspecified; Z68.33 Body mass index [BMI] 33.0-33.9, adult; N18.9 Chronic kidney disease, unspecified; E11.22 Type 2 diabetes mellitus with diabetic chronic kidney disease; I34.0 Nonrheumatic mitral (valve) insufficiency; E87.6 Hypokalemia; I25.10 Atherosclerotic heart disease of native coronary artery without angina pectoris; Z88.5 Allergy status to narcotic agent; Z88.8 Allergy status to other drugs, medicaments and biological substances; Z88.6 Allergy status to analgesic agent; Z91.040 Latex allergy status; Z79.84 Long term (current) use of oral hypoglycemic drugs; Z79.2 Long term (current) use of antibiotics; Z79.82 Long term (current) use of aspirin; Z86.16 Personal history of COVID-19; Z90.710 Acquired absence of both cervix and uterus; Z98.890 Other specified postprocedural states; Z90.49 Acquired absence of other specified parts of digestive tract; Z90.89 Acquired absence of other organs; Z68.32 Body mass index [BMI] 32.0-32.9, adult; Z79.899 Other long term (current) drug therapy; Z95.0 Presence of cardiac pacemaker; Z87.440 Personal history of urinary (tract) infections; Z86.74 Personal history of sudden cardiac arrest
CPT/HCPCS: 0241U; 36415; 36600; 71045; 80048; 80053; 81001; 82803; 82947; 83605; 83735; 83880; 84145; 84484; 85025; 85027; 86140; 87040; 87070; 87205; 93005; 93010; 94640; 96374; 99223; 99285; 99231; 99232; 99238; A9270-GY; J0456; J0692; J1815; J1939; J3480; J3490; J7050; J7620

== ENCOUNTER 2024-05-23 07:56 | Emergency (ER) | payer MEDICARE, MEDICAID ==
[2024-05-23] MEDS ORDERED: Furosemide 40 MG/4 ML VIAL IVPUSH ONE (08:26)
[2024-05-23 08:39] LABS: BASOPHILS ABSOLUTE AUTO 0.08 K/uL (0.00-0.10); BASOPHILS PERCENT AUTO 0.7 % (0.1-1.3); EOSINOPHILS ABSOLUTE AUTO 0.16 K/uL (0.00-0.40); EOSINOPHILS PERCENT AUTO 1.4 % (0.0-5.4); HEMATOCRIT 40.6 % (34.3-46.0); HEMOGLOBIN 12.5 g/dL (11.2-15.5); IMMATURE GRAN ABSOLUTE AUTO 0.05 K/uL (0.00-0.23); IMMATURE GRAN PERCENT AUTO 0.4 % (0.0-0.7); LYMPHOCYTES ABSOLUTE AUTO 1.62 K/uL (0.8-3.3); MEAN CORPUSCULAR HEMOGLOBIN 24.3 pg (31.6-35.5); MEAN CORPUSCULAR HGB CONC 30.8 g/dL (31.6-35.5); MONOCYTES ABSOLUTE AUTO 0.39 K/uL (0.20-0.90); MONOCYTES PERCENT AUTO 3.4 % (3.3-12.6); NEUTROPHILS ABSOLUTE AUTO 9.28 K/uL (1.0-7.6); NEUTROPHILS PERCENT AUTO 80.1 % (40.0-78.1); PLATELET COUNT,PLT 326 K/uL (130-375); RED BLOOD CELL COUNT 5.14 M/uL (3.77-5.24); WHITE BLOOD CELL COUNT,WBC 11.6 K/uL (3.2-11.0)
[2024-05-23] MEDS: Bumetanide 1 MG/4 ML MDV IVPUSH ONE (08:44)
[2024-05-23] MEDS: Acetaminophen 500 MG Tab PO ONE (08:44)
[2024-05-23 09:02] LABS: ALANINE AMINOTRANSFERASE,ALT 18 U/L (12-78); ALBUMIN 3.8 g/dL (3.4-5.0); ALKALINE PHOSPHATASE 116 U/L (46-116); ANION GAP 16.9 mmol/L (5.0-14.0); ASPARTATE AMNIOTRANSFERASE,AST 18 U/L (15-37); BILIRUBIN TOTAL 1.4 mg/dL (0.2-1.0); BLOOD UREA NITROGEN,BUN 25 mg/dL (7-18); CALCIUM 9.3 mg/dL (8.5-10.1); CARBON DIOXIDE,CO2 25 mmol/L (21-32); CHLORIDE,CL 99 mmol/L (100-108); CREATININE 1.3 mg/dL (0.6-1.0); EST CRCL DRUG DOSING (CG) 35.16 mL/min; ESTIMATED GFR 47 mL/min (>60); GLUCOSE RANDOM 156 mg/dL (74-106); POTASSIUM,K 3.9 mmol/L (3.6-5.2); PROTEIN TOTAL,TP 7.5 g/dL (6.4-8.2); SODIUM,NA 137 mmol/L (140-148)
[2024-05-23] MEDS: Acetaminophen/HYDROcodone 325-5 MG Tab PO ONE (10:08)
[2024-05-23] MEDS: Baclofen 10 MG Tab PO ONE (10:43)
[2024-05-23 11:09] VITALS: BP 106/52; PULSE 96
== END 2024-05-23 12:45 | disposition home or self-care (01) ==
LOC: JP.ED 07:56
DX: M79.604 Pain in right leg (principal); M79.605 Pain in left leg; R60.0 Localized edema; I11.0 Hypertensive heart disease with heart failure; I50.9 Heart failure, unspecified; E78.00 Pure hypercholesterolemia, unspecified; J45.909 Unspecified asthma, uncomplicated; E11.9 Type 2 diabetes mellitus without complications; E03.9 Hypothyroidism, unspecified; E66.9 Obesity, unspecified; Z86.73 Personal history of transient ischemic attack (TIA), and cerebral infarction without residual deficits; Z86.16 Personal history of COVID-19; Z90.49 Acquired absence of other specified parts of digestive tract; Z90.710 Acquired absence of both cervix and uterus; Z88.5 Allergy status to narcotic agent; Z88.6 Allergy status to analgesic agent; Z88.8 Allergy status to other drugs, medicaments and biological substances; Z91.040 Latex allergy status; Z79.84 Long term (current) use of oral hypoglycemic drugs; Z79.890 Hormone replacement therapy; Z79.899 Other long term (current) drug therapy; Z68.34 Body mass index [BMI] 34.0-34.9, adult
CPT/HCPCS: 36415; 80053; 85025; 93970; 96374; 96375; 99284; A9270; J3360; J3490

== ENCOUNTER 2024-07-14 15:37 | Emergency (ER) | payer MEDICARE, MEDICAID ==
[2024-07-14 16:06] VITALS: BP 90/64; PULSE 94
[2024-07-14 17:06] LABS: BASOPHILS ABSOLUTE AUTO 0.06 K/uL (0.00-0.10); BASOPHILS PERCENT AUTO 0.6 % (0.1-1.3); EOSINOPHILS ABSOLUTE AUTO 0.31 K/uL (0.00-0.40); EOSINOPHILS PERCENT AUTO 3.3 % (0.0-5.4); HEMATOCRIT 42.8 % (34.3-46.0); HEMOGLOBIN 13.8 g/dL (11.2-15.5); IMMATURE GRAN ABSOLUTE AUTO 0.03 K/uL (0.00-0.23); IMMATURE GRAN PERCENT AUTO 0.3 % (0.0-0.7); LYMPHOCYTES ABSOLUTE AUTO 2.27 K/uL (0.8-3.3); LYMPHOCYTES PERCENT AUTO 24.3 % (11.4-47.7); MEAN CORPUSCULAR HGB CONC 32.2 g/dL (31.6-35.5); MEAN CORPUSCULAR VOLUME 80.6 fL (81.4-99.0); MONOCYTES ABSOLUTE AUTO 0.77 K/uL (0.20-0.90); MONOCYTES PERCENT AUTO 8.2 % (3.3-12.6); NEUTROPHILS PERCENT AUTO 63.3 % (40.0-78.1); PLATELET COUNT,PLT 245 K/uL (130-375); RED BLOOD CELL COUNT 5.31 M/uL (3.77-5.24); WHITE BLOOD CELL COUNT,WBC 9.3 K/uL (3.2-11.0)
[2024-07-14 17:27] LABS: A/G RATIO 1.1 (1.2-2.2); ALANINE AMINOTRANSFERASE,ALT 23 U/L (12-78); ALBUMIN 4.1 g/dL (3.4-5.0); ALKALINE PHOSPHATASE 109 U/L (46-116); ASPARTATE AMNIOTRANSFERASE,AST 13 U/L (15-37); BILIRUBIN TOTAL 0.8 mg/dL (0.2-1.0); BLOOD UREA NITROGEN,BUN 31 mg/dL (7-18); CALCIUM 9.5 mg/dL (8.5-10.1); CARBON DIOXIDE,CO2 30 mmol/L (21-32); CHLORIDE,CL 94 mmol/L (100-108); CREATININE 1.1 mg/dL (0.6-1.0); EST CRCL DRUG DOSING (CG) 41.55 mL/min; ESTIMATED GFR 58 mL/min (>60); GLUCOSE RANDOM 106 mg/dL (74-106); PROTEIN TOTAL,TP 7.8 g/dL (6.4-8.2); SODIUM,NA 133 mmol/L (140-148)
[2024-07-14 17:29] LABS: C-REACTIVE PROTEIN < 0.50 mg/dL (<0.50)
== END 2024-07-14 18:26 | disposition home or self-care (01) ==
LOC: JP.ED 15:37
DX: T82.898A Other specified complication of vascular prosthetic devices, implants and grafts, initial encounter (principal); I11.0 Hypertensive heart disease with heart failure; I50.9 Heart failure, unspecified; E78.00 Pure hypercholesterolemia, unspecified; E11.9 Type 2 diabetes mellitus without complications; E03.9 Hypothyroidism, unspecified; Z91.040 Latex allergy status; Z88.5 Allergy status to narcotic agent; Z88.8 Allergy status to other drugs, medicaments and biological substances; Z88.6 Allergy status to analgesic agent; Z79.890 Hormone replacement therapy; Z79.899 Other long term (current) drug therapy; Z79.84 Long term (current) use of oral hypoglycemic drugs; Z86.16 Personal history of COVID-19; Z86.73 Personal history of transient ischemic attack (TIA), and cerebral infarction without residual deficits; Z87.891 Personal history of nicotine dependence
CPT/HCPCS: 36415; 80053; 83605; 84145; 85025; 86140; 99283

== ENCOUNTER 2024-07-30 22:37 | Emergency (ER) | payer MEDICARE, MEDICAID ==
[2024-07-30 23:58] LABS: CORONAVIRUS COVID-19 NAA NEGATIVE (NEGATIVE); INFLUENZA A NAA NEGATIVE (NEGATIVE); INFLUENZA B NAA NEGATIVE (NEGATIVE); RESPIRATORY SYNCYTIAL VIR NAA NEGATIVE (NEGATIVE)
[2024-07-31 00:15] LABS: BASOPHILS ABSOLUTE AUTO 0.05 K/uL (0.00-0.10); BASOPHILS PERCENT AUTO 0.4 % (0.1-1.3); EOSINOPHILS ABSOLUTE AUTO 0.17 K/uL (0.00-0.40); EOSINOPHILS PERCENT AUTO 1.4 % (0.0-5.4); HEMATOCRIT 41.1 % (34.3-46.0); HEMOGLOBIN 13.5 g/dL (11.2-15.5); IMMATURE GRAN ABSOLUTE AUTO 0.24 K/uL (0.00-0.23); LYMPHOCYTES ABSOLUTE AUTO 1.61 K/uL (0.8-3.3); LYMPHOCYTES PERCENT AUTO 13.1 % (11.4-47.7); MEAN CORPUSCULAR HEMOGLOBIN 26.2 pg (31.6-35.5); MEAN CORPUSCULAR HGB CONC 32.8 g/dL (31.6-35.5); MEAN CORPUSCULAR VOLUME 79.7 fL (81.4-99.0); MONOCYTES ABSOLUTE AUTO 0.48 K/uL (0.20-0.90); MONOCYTES PERCENT AUTO 3.9 % (3.3-12.6); NEUTROPHILS ABSOLUTE AUTO 9.75 K/uL (1.0-7.6); NEUTROPHILS PERCENT AUTO 79.2 % (40.0-78.1); PLATELET COUNT,PLT 262 K/uL (130-375); RED BLOOD CELL COUNT 5.16 M/uL (3.77-5.24); WHITE BLOOD CELL COUNT,WBC 12.3 K/uL (3.2-11.0)
[2024-07-31 00:33] LABS: ANION GAP 14.9 mmol/L (5.0-14.0); CALCIUM 9.5 mg/dL (8.5-10.1); CREATININE 1.2 mg/dL (0.6-1.0); EST CRCL DRUG DOSING (CG) 38.09 mL/min; POTASSIUM,K 3.9 mmol/L (3.6-5.2)
[2024-07-31 00:41] LABS: LACTIC ACID 2.6 mmol/L (0.4-2.0)
[2024-07-31 01:06] LABS: APPEARANCE,URINE CLOUDY (CLEAR); BILIRUBIN,URINE NEGATIVE (NEGATIVE); COLOR,URINE YELLOW (YELLOW); GLUCOSE,URINE 500 mg/dL (NEGATIVE); KETONES,URINE NEGATIVE (NEGATIVE); LEUKOCYTE ESTERASE,URINE TRACE (NEGATIVE); NITRITE,URINE NEGATIVE (NEGATIVE); OCCULT BLOOD,URINE NEGATIVE (NEGATIVE); PH,URINE 5.5 (5.0-8.0); PROTEIN,URINE NEGATIVE (NEGATIVE); UROBILINOGEN,URINE 0.2 EU/dL (0.2-1.0)
[2024-07-31 01:12] LABS: AMORPHOUS SEDIMENT,URINE NOT SEEN; BACTERIA,URINE MANY; EPITHELIAL CELLS,URINE MODERATE; MUCUS,URINE FEW; RBC,URINE 0-5 (0-5); WBC,URINE 40-50 (0-5)
[2024-07-31] MEDS: Doxycycline 100 MG Cap PO ONE (03:31)
[2024-07-31] MEDS: cefTRIAXone 2 GM in Sodium Chloride 0.9% 50 ML IV ONE (03:44)
[2024-07-31] MEDS ORDERED: Doxycycline 100 MG Cap PO SCH (10:15)
[2024-07-31] MEDS: Ondansetron 4 MG/2 ML SDV IVPUSH ONE ×2 (10:30→13:50)
[2024-07-31] MEDS: Sodium Chloride 0.9% 1,000 ML IV SCH (12:05)
[2024-07-31] MEDS: Sodium Chloride 0.9% 100 ML IV SCH (13:17)
[2024-07-31] MEDS: Iopamidol 755 Mg/ML 100 ML Bottle IV SCH (13:17)
[2024-07-31] MEDS: diphenhydrAMINE 50 MG/ML SDV IVPUSH ONE (13:33)
[2024-07-31] MEDS: Doxycycline 100 MG Cap PO SCH (13:34)
[2024-07-31] MEDS: Bumetanide 2.5 MG/10 ML MDV IVPUSH ONE (13:50)
[2024-07-31] MEDS: Furosemide 40 MG/4 ML VIAL IVPUSH ONE (13:56)
[2024-07-31] MEDS: Carvedilol 3.125 MG Tab PO ONE (15:52)
[2024-07-31] MEDS: Spironolactone 25 MG Tab PO ONE (15:55)
[2024-07-31] MEDS: Acetaminophen 500 MG Tab PO ONE (15:55)
[2024-07-31] MEDS ORDERED: FEXOFENADINE 180 MG PO PRN (18:44)
[2024-07-31] MEDS ORDERED: DEXTROSE IV SCH (18:45)
[2024-07-31] MEDS ORDERED: DOBUTAMINE IV SCH (18:45)
[2024-07-31] MEDS ORDERED: WATER IV SCH (18:45)
[2024-07-31] MEDS ORDERED: D5W IV SCH (18:45)
[2024-07-31] MEDS ORDERED: [UNRECOGNIZED DRUG - OTHER] IV SCH (18:45)
[2024-07-31] MEDS ORDERED: Loratadine 10 MG Tab PO PRN (19:13)
[2024-07-31] MEDS: Spironolactone 25 MG Tab PO SCH (20:57)
[2024-07-31] MEDS: atorvaSTATin 20 MG Tab PO SCH (20:57)
[2024-07-31] MEDS: Acetaminophen 500 MG Tab PO SCH (21:02)
[2024-07-31] MEDS: Sacubitril/Valsartan 24 MG-26 MG Tab PO SCH (21:02)
[2024-08-01] MEDS: cefTRIAXone 1 GM in Sodium Chloride 0.9% 50 ML IV SCH (04:12)
[2024-08-01] MEDS: Acetaminophen 500 MG Tab PO ONE (05:26)
[2024-08-01 07:17] LABS: BASOPHILS ABSOLUTE AUTO 0.04 K/uL (0.00-0.10); BASOPHILS PERCENT AUTO 0.6 % (0.1-1.3); EOSINOPHILS ABSOLUTE AUTO 0.27 K/uL (0.00-0.40); HEMATOCRIT 35.9 % (34.3-46.0); HEMOGLOBIN 11.6 g/dL (11.2-15.5); IMMATURE GRAN ABSOLUTE AUTO 0.03 K/uL (0.00-0.23); IMMATURE GRAN PERCENT AUTO 0.4 % (0.0-0.7); LYMPHOCYTES PERCENT AUTO 23.7 % (11.4-47.7); MEAN CORPUSCULAR HEMOGLOBIN 26.1 pg (31.6-35.5); MEAN CORPUSCULAR HGB CONC 32.3 g/dL (31.6-35.5); MEAN CORPUSCULAR VOLUME 80.7 fL (81.4-99.0); MONOCYTES ABSOLUTE AUTO 0.55 K/uL (0.20-0.90); MONOCYTES PERCENT AUTO 8.1 % (3.3-12.6); NEUTROPHILS ABSOLUTE AUTO 4.26 K/uL (1.0-7.6); NEUTROPHILS PERCENT AUTO 63.2 % (40.0-78.1); PLATELET COUNT,PLT 213 K/uL (130-375); RED BLOOD CELL COUNT 4.45 M/uL (3.77-5.24); WHITE BLOOD CELL COUNT,WBC 6.8 K/uL (3.2-11.0)
[2024-08-01 07:37] LABS: ALANINE AMINOTRANSFERASE,ALT 16 U/L (12-78); ALBUMIN 3.2 g/dL (3.4-5.0); ALKALINE PHOSPHATASE 70 U/L (46-116); ASPARTATE AMNIOTRANSFERASE,AST 11 U/L (15-37); BILIRUBIN TOTAL 0.6 mg/dL (0.2-1.0); BLOOD UREA NITROGEN,BUN 19 mg/dL (7-18); CALCIUM 9.2 mg/dL (8.5-10.1); CARBON DIOXIDE,CO2 27 mmol/L (21-32); CHLORIDE,CL 99 mmol/L (100-108); CREATININE 0.9 mg/dL (0.6-1.0); EST CRCL DRUG DOSING (CG) 50.79 mL/min; ESTIMATED GFR 74 mL/min (>60); GLUCOSE RANDOM 108 mg/dL (74-106); POTASSIUM,K 3.6 mmol/L (3.6-5.2); PROTEIN TOTAL,TP 6.3 g/dL (6.4-8.2); SODIUM,NA 134 mmol/L (140-148)
[2024-08-01] MEDS: Levothyroxine 50 MCG Tab PO SCH (07:38)
[2024-08-01 07:39] LABS: ANION GAP 11.6 mmol/L (5.0-14.0)
[2024-08-01] MEDS ORDERED: [UNRECOGNIZED DRUG - OTHER] IVPUSH SCH (07:45)
[2024-08-01] MEDS ORDERED: DOBUTAMINE IVPUSH SCH (08:00)
[2024-08-01] MEDS: Bumetanide 1 MG Tab PO SCH (08:39)
[2024-08-01] MEDS: Clopidogrel 75 MG Tab PO SCH (08:39)
[2024-08-01] MEDS: Amiodarone 200 MG Tab PO SCH (08:40)
[2024-08-01] MEDS: Promethazine 6.25 MG in Sodium Chloride 0.9% 50 ML IV ONE (17:16)
[2024-08-02 03:42] LABS: BASOPHILS ABSOLUTE AUTO 0.09 K/uL (0.00-0.10); BASOPHILS PERCENT AUTO 0.9 % (0.1-1.3); EOSINOPHILS ABSOLUTE AUTO 0.51 K/uL (0.00-0.40); HEMATOCRIT 40.5 % (34.3-46.0); HEMOGLOBIN 12.8 g/dL (11.2-15.5); IMMATURE GRAN ABSOLUTE AUTO 0.03 K/uL (0.00-0.23); IMMATURE GRAN PERCENT AUTO 0.3 % (0.0-0.7); LYMPHOCYTES PERCENT AUTO 27.2 % (11.4-47.7); MEAN CORPUSCULAR HGB CONC 31.6 g/dL (31.6-35.5); MEAN CORPUSCULAR VOLUME 82.3 fL (81.4-99.0); MONOCYTES ABSOLUTE AUTO 0.73 K/uL (0.20-0.90); MONOCYTES PERCENT AUTO 7.1 % (3.3-12.6); NEUTROPHILS ABSOLUTE AUTO 6.13 K/uL (1.0-7.6); NEUTROPHILS PERCENT AUTO 59.5 % (40.0-78.1); PLATELET COUNT,PLT 239 K/uL (130-375); RED BLOOD CELL COUNT 4.92 M/uL (3.77-5.24); WHITE BLOOD CELL COUNT,WBC 10.3 K/uL (3.2-11.0)
[2024-08-02] MEDS: Promethazine 6.25 MG in Sodium Chloride 0.9% 50 ML IV ONE (03:48)
[2024-08-02 04:08] LABS: A/G RATIO 1.1 (1.2-2.2); ALANINE AMINOTRANSFERASE,ALT 18 U/L (12-78); ALBUMIN 3.6 g/dL (3.4-5.0); ALKALINE PHOSPHATASE 76 U/L (46-116); ASPARTATE AMNIOTRANSFERASE,AST 11 U/L (15-37); BILIRUBIN TOTAL 0.4 mg/dL (0.2-1.0); BLOOD UREA NITROGEN,BUN 21 mg/dL (7-18); CARBON DIOXIDE,CO2 26 mmol/L (21-32); CHLORIDE,CL 98 mmol/L (100-108); CREATININE 1.2 mg/dL (0.6-1.0); EST CRCL DRUG DOSING (CG) 38.09 mL/min; ESTIMATED GFR 52 mL/min (>60); GLUCOSE RANDOM 137 mg/dL (74-106); POTASSIUM,K 3.9 mmol/L (3.6-5.2); SODIUM,NA 138 mmol/L (140-148)
[2024-08-02 04:09] LABS: ANION GAP 17.9 mmol/L (5.0-14.0)
[2024-08-02] MEDS: Promethazine 25 MG/ML SDV IM ONE (04:16)
[2024-08-02 08:37] VITALS: BP 125/80; PULSE 85
== END 2024-08-02 08:15 ==
LOC: JP.ED 22:37
DX: J18.9 Pneumonia, unspecified organism (principal); I11.0 Hypertensive heart disease with heart failure; I50.23 Acute on chronic systolic (congestive) heart failure; E78.00 Pure hypercholesterolemia, unspecified; E11.9 Type 2 diabetes mellitus without complications; E03.9 Hypothyroidism, unspecified; Z91.040 Latex allergy status; Z88.5 Allergy status to narcotic agent; Z88.8 Allergy status to other drugs, medicaments and biological substances; Z79.890 Hormone replacement therapy; Z79.84 Long term (current) use of oral hypoglycemic drugs; Z79.02 Long term (current) use of antithrombotics/antiplatelets; Z90.710 Acquired absence of both cervix and uterus; Z86.16 Personal history of COVID-19
CPT/HCPCS: 0241U; 36415; 71046; 71275; 80048; 80053; 81001; 83605; 83690; 84484; 85025; 86140; 87040; 87086; 87088; 87186; 93005; 93010; 96361; 96365; 96366; 96367; 96375; 96376; 99285; A9270; J0696; J1200; J1939; J2405; J2550; J7030; Q9967

== ENCOUNTER 2024-08-15 11:17 | Emergency (ER) | payer MEDICARE, MEDICAID ==
[2024-08-15] MEDS ORDERED: Sodium Chloride 0.9% 10 ML Syringe FLUSH PRN (11:26)
[2024-08-15 11:40] LABS: BASOPHILS ABSOLUTE AUTO 0.05 K/uL (0.00-0.10); BASOPHILS PERCENT AUTO 0.7 % (0.1-1.3); EOSINOPHILS PERCENT AUTO 2.8 % (0.0-5.4); HEMATOCRIT 41.1 % (34.3-46.0); HEMOGLOBIN 13.3 g/dL (11.2-15.5); IMMATURE GRAN PERCENT AUTO 0.3 % (0.0-0.7); LYMPHOCYTES PERCENT AUTO 16.8 % (11.4-47.7); MEAN CORPUSCULAR HEMOGLOBIN 26.9 pg (31.6-35.5); MEAN CORPUSCULAR HGB CONC 32.4 g/dL (31.6-35.5); MONOCYTES ABSOLUTE AUTO 0.43 K/uL (0.20-0.90); NEUTROPHILS ABSOLUTE AUTO 5.24 K/uL (1.0-7.6); NEUTROPHILS PERCENT AUTO 73.4 % (40.0-78.1); PLATELET COUNT,PLT 210 K/uL (130-375); RED BLOOD CELL COUNT 4.95 M/uL (3.77-5.24); WHITE BLOOD CELL COUNT,WBC 7.1 K/uL (3.2-11.0)
[2024-08-15 11:41] LABS: IMMATURE GRAN ABSOLUTE AUTO 0.02 K/uL (0.00-0.23)
[2024-08-15] MEDS: Promethazine 6.25 MG in Sodium Chloride 0.9% 50 ML IV ONE (11:49)
[2024-08-15] MEDS: Sodium Chloride 0.9% 1,000 ML IV ONE (11:49)
[2024-08-15 12:03] LABS: LACTIC ACID 1.6 mmol/L (0.4-2.0)
[2024-08-15 12:09] LABS: A/G RATIO 1.3 (1.2-2.2); ALANINE AMINOTRANSFERASE,ALT 17 U/L (12-78); ALKALINE PHOSPHATASE 88 U/L (46-116); ASPARTATE AMNIOTRANSFERASE,AST 11 U/L (15-37); BILIRUBIN TOTAL 1.7 mg/dL (0.2-1.0); BLOOD UREA NITROGEN,BUN 25 mg/dL (7-18); CALCIUM 10.1 mg/dL (8.5-10.1); CARBON DIOXIDE,CO2 24 mmol/L (21-32); CHLORIDE,CL 99 mmol/L (100-108); EST CRCL DRUG DOSING (CG) 45.71 mL/min; ESTIMATED GFR 65 mL/min (>60); GLUCOSE RANDOM 130 mg/dL (74-106); POTASSIUM,K 3.8 mmol/L (3.6-5.2); PROTEIN TOTAL,TP 7.2 g/dL (6.4-8.2); SODIUM,NA 138 mmol/L (140-148)
[2024-08-15 12:11] LABS: ANION GAP 18.8 mmol/L (5.0-14.0)
[2024-08-15 12:13] VITALS: BP 119/62; PULSE 52
== END 2024-08-15 13:31 | disposition home or self-care (01) ==
LOC: JP.ED 11:17
DX: R11.2 Nausea with vomiting, unspecified (principal); E80.6 Other disorders of bilirubin metabolism; I11.0 Hypertensive heart disease with heart failure; I50.9 Heart failure, unspecified; E78.00 Pure hypercholesterolemia, unspecified; J45.909 Unspecified asthma, uncomplicated; E11.9 Type 2 diabetes mellitus without complications; E03.9 Hypothyroidism, unspecified; E66.9 Obesity, unspecified; Z68.32 Body mass index [BMI] 32.0-32.9, adult; Z86.16 Personal history of COVID-19; Z90.49 Acquired absence of other specified parts of digestive tract; Z90.710 Acquired absence of both cervix and uterus; Z88.6 Allergy status to analgesic agent; Z88.5 Allergy status to narcotic agent; Z88.8 Allergy status to other drugs, medicaments and biological substances; Z91.040 Latex allergy status; Z79.84 Long term (current) use of oral hypoglycemic drugs; Z79.890 Hormone replacement therapy; Z79.899 Other long term (current) drug therapy
CPT/HCPCS: 36415; 80053; 82248; 83605; 85025; 96361; 96374; 99285; J2550; J7030; 99284

== ENCOUNTER 2024-08-16 03:41 | Emergency (ER) | payer MEDICARE, MEDICAID ==
[2024-08-16 04:11] LABS: BASOPHILS ABSOLUTE AUTO 0.07 K/uL (0.00-0.10); BASOPHILS PERCENT AUTO 0.7 % (0.1-1.3); EOSINOPHILS ABSOLUTE AUTO 0.12 K/uL (0.00-0.40); EOSINOPHILS PERCENT AUTO 1.2 % (0.0-5.4); HEMATOCRIT 41.6 % (34.3-46.0); HEMOGLOBIN 13.3 g/dL (11.2-15.5); IMMATURE GRAN ABSOLUTE AUTO 0.03 K/uL (0.00-0.23); IMMATURE GRAN PERCENT AUTO 0.3 % (0.0-0.7); LYMPHOCYTES ABSOLUTE AUTO 1.44 K/uL (0.8-3.3); LYMPHOCYTES PERCENT AUTO 14.4 % (11.4-47.7); MEAN CORPUSCULAR HEMOGLOBIN 26.7 pg (31.6-35.5); MEAN CORPUSCULAR VOLUME 83.4 fL (81.4-99.0); MONOCYTES ABSOLUTE AUTO 0.47 K/uL (0.20-0.90); MONOCYTES PERCENT AUTO 4.7 % (3.3-12.6); NEUTROPHILS ABSOLUTE AUTO 7.84 K/uL (1.0-7.6); NEUTROPHILS PERCENT AUTO 78.7 % (40.0-78.1); PLATELET COUNT,PLT 216 K/uL (130-375); RED BLOOD CELL COUNT 4.99 M/uL (3.77-5.24)
[2024-08-16] MEDS: Aspirin 81 MG Tab.Chew PO ONE (04:27)
[2024-08-16] MEDS: diphenhydrAMINE 50 MG/ML SDV IVPUSH ONE (04:29)
[2024-08-16] MEDS: Promethazine 6.25 MG in Sodium Chloride 0.9% 50 ML IV ONE (04:29)
[2024-08-16 04:36] LABS: A/G RATIO 1.2 (1.2-2.2); ALANINE AMINOTRANSFERASE,ALT 18 U/L (12-78); ALKALINE PHOSPHATASE 86 U/L (46-116); ASPARTATE AMNIOTRANSFERASE,AST 18 U/L (15-37); BILIRUBIN TOTAL 1.6 mg/dL (0.2-1.0); BLOOD UREA NITROGEN,BUN 23 mg/dL (7-18); CALCIUM 10.2 mg/dL (8.5-10.1); CARBON DIOXIDE,CO2 24 mmol/L (21-32); CHLORIDE,CL 101 mmol/L (100-108); EST CRCL DRUG DOSING (CG) 45.71 mL/min; ESTIMATED GFR 65 mL/min (>60); GLUCOSE RANDOM 137 mg/dL (74-106); POTASSIUM,K 4.2 mmol/L (3.6-5.2); PRO B-TYPE NATRIUR PEPT,BNPPRO 2743 pg/mL (5-125); PROTEIN TOTAL,TP 7.3 g/dL (6.4-8.2); SODIUM,NA 139 mmol/L (140-148); TROPONIN I HIGH SENSITIVITY 40.3 pg/mL (<=60.3)
[2024-08-16 04:37] LABS: ANION GAP 18.2 mmol/L (5.0-14.0)
[2024-08-16] MEDS: Sodium Chloride 0.9% 250 ML IV SCH (05:08)
[2024-08-16 12:43] VITALS: BP 101/69; PULSE 93
== END 2024-08-16 13:54 | disposition home or self-care (01) ==
LOC: JP.ED 03:41
DX: I11.0 Hypertensive heart disease with heart failure (principal); I50.84 End stage heart failure; E11.9 Type 2 diabetes mellitus without complications; E66.9 Obesity, unspecified; E03.9 Hypothyroidism, unspecified; J45.909 Unspecified asthma, uncomplicated; Z88.8 Allergy status to other drugs, medicaments and biological substances; Z88.6 Allergy status to analgesic agent; Z91.040 Latex allergy status; Z79.899 Other long term (current) drug therapy
CPT/HCPCS: 36415; 71045; 80053; 83605; 83880; 84484; 85025; 93005; 96361; 96365; 96375; 99285; A9270; J1200; J2550; 93010

== ENCOUNTER 2024-08-31 02:29 | Emergency (ER) | payer MEDICARE, MEDICAID ==
[2024-08-31 03:13] LABS: BASOPHILS ABSOLUTE AUTO 0.08 K/uL (0.00-0.10); BASOPHILS PERCENT AUTO 0.8 % (0.1-1.3); EOSINOPHILS ABSOLUTE AUTO 0.28 K/uL (0.00-0.40); EOSINOPHILS PERCENT AUTO 2.7 % (0.0-5.4); HEMATOCRIT 40.6 % (34.3-46.0); HEMOGLOBIN 12.9 g/dL (11.2-15.5); IMMATURE GRAN ABSOLUTE AUTO 0.04 K/uL (0.00-0.23); IMMATURE GRAN PERCENT AUTO 0.4 % (0.0-0.7); LYMPHOCYTES ABSOLUTE AUTO 1.67 K/uL (0.8-3.3); MEAN CORPUSCULAR HEMOGLOBIN 26.6 pg (31.6-35.5); MEAN CORPUSCULAR HGB CONC 31.8 g/dL (31.6-35.5); MEAN CORPUSCULAR VOLUME 83.7 fL (81.4-99.0); MONOCYTES ABSOLUTE AUTO 0.46 K/uL (0.20-0.90); MONOCYTES PERCENT AUTO 4.4 % (3.3-12.6); NEUTROPHILS ABSOLUTE AUTO 7.93 K/uL (1.0-7.6); NEUTROPHILS PERCENT AUTO 75.7 % (40.0-78.1); PLATELET COUNT,PLT 267 K/uL (130-375); RED BLOOD CELL COUNT 4.85 M/uL (3.77-5.24); WHITE BLOOD CELL COUNT,WBC 10.5 K/uL (3.2-11.0)
[2024-08-31] MEDS: fentaNYL 100 MCG/2 ML SDV IVPUSH ONE (03:17)
[2024-08-31] MEDS: Bumetanide 2.5 MG/10 ML MDV IVPUSH ONE (03:18)
[2024-08-31 03:25] LABS: CALCIUM 9.5 mg/dL (8.5-10.1); CREATININE 1.3 mg/dL (0.6-1.0); EST CRCL DRUG DOSING (CG) 35.2 mL/min; POTASSIUM,K 3.3 mmol/L (3.6-5.2)
[2024-08-31 03:26] LABS: ANION GAP 17.3 mmol/L (5.0-14.0)
[2024-08-31] MEDS: Ondansetron 4 MG/2 ML SDV IVPUSH ONE (03:40)
[2024-08-31] MEDS: Ondansetron 4 MG/2 ML SDV ONE (03:41)
[2024-08-31 04:48] VITALS: BP 103/66; PULSE 81
== END 2024-08-31 05:02 | disposition home or self-care (01) ==
LOC: JP.ED 02:29
DX: M79.605 Pain in left leg (principal); M79.606 Pain in leg, unspecified; I11.0 Hypertensive heart disease with heart failure; I50.22 Chronic systolic (congestive) heart failure; E78.00 Pure hypercholesterolemia, unspecified; J45.909 Unspecified asthma, uncomplicated; E11.9 Type 2 diabetes mellitus without complications; E03.9 Hypothyroidism, unspecified; E66.9 Obesity, unspecified; Z86.16 Personal history of COVID-19; Z90.49 Acquired absence of other specified parts of digestive tract; Z90.710 Acquired absence of both cervix and uterus; Z79.899 Other long term (current) drug therapy; Z79.890 Hormone replacement therapy; Z88.5 Allergy status to narcotic agent; Z91.040 Latex allergy status; Z88.8 Allergy status to other drugs, medicaments and biological substances
CPT/HCPCS: 36415; 80048; 85025; 96374; 96375; 99283; J1939; J2405; J3010; 99284

== ENCOUNTER 2024-09-04 00:15 | Emergency (ER) | payer MEDICARE, MEDICAID ==
[2024-09-04] MEDS ORDERED: Bumetanide 2.5 MG/10 ML MDV IVPUSH ONE (00:54)
[2024-09-04] MEDS: Bumetanide 2.5 MG/10 ML MDV IVPUSH SCH (01:24)
[2024-09-04] MEDS: fentaNYL 100 MCG/2 ML SDV IVPUSH ONE (01:25)
[2024-09-04 02:34] LABS: BASOPHILS ABSOLUTE AUTO 0.07 K/uL (0.00-0.10); BASOPHILS PERCENT AUTO 0.6 % (0.1-1.3); EOSINOPHILS ABSOLUTE AUTO 0.17 K/uL (0.00-0.40); EOSINOPHILS PERCENT AUTO 1.6 % (0.0-5.4); HEMATOCRIT 41.8 % (34.3-46.0); HEMOGLOBIN 13.1 g/dL (11.2-15.5); IMMATURE GRAN ABSOLUTE AUTO 0.04 K/uL (0.00-0.23); IMMATURE GRAN PERCENT AUTO 0.4 % (0.0-0.7); LYMPHOCYTES ABSOLUTE AUTO 1.85 K/uL (0.8-3.3); MEAN CORPUSCULAR HEMOGLOBIN 26.1 pg (31.6-35.5); MEAN CORPUSCULAR HGB CONC 31.3 g/dL (31.6-35.5); MEAN CORPUSCULAR VOLUME 83.4 fL (81.4-99.0); MONOCYTES ABSOLUTE AUTO 0.64 K/uL (0.20-0.90); MONOCYTES PERCENT AUTO 5.9 % (3.3-12.6); NEUTROPHILS PERCENT AUTO 74.5 % (40.0-78.1); PLATELET COUNT,PLT 259 K/uL (130-375); RED BLOOD CELL COUNT 5.01 M/uL (3.77-5.24); WHITE BLOOD CELL COUNT,WBC 10.9 K/uL (3.2-11.0)
[2024-09-04 02:45] VITALS: BP 99/61; PULSE 79
[2024-09-04 02:49] LABS: CALCIUM 9.7 mg/dL (8.5-10.1); CREATININE 1.1 mg/dL (0.6-1.0); EST CRCL DRUG DOSING (CG) 41.55 mL/min; POTASSIUM,K 3.3 mmol/L (3.6-5.2)
[2024-09-04 02:50] LABS: ANION GAP 14.3 mmol/L (5.0-14.0)
== END 2024-09-04 04:03 | disposition home or self-care (01) ==
LOC: JP.ED 00:15
DX: I11.0 Hypertensive heart disease with heart failure (principal); I50.84 End stage heart failure; I73.9 Peripheral vascular disease, unspecified; J45.909 Unspecified asthma, uncomplicated; E78.00 Pure hypercholesterolemia, unspecified; E66.9 Obesity, unspecified; E03.9 Hypothyroidism, unspecified; E11.9 Type 2 diabetes mellitus without complications; Z88.8 Allergy status to other drugs, medicaments and biological substances; Z91.040 Latex allergy status; Z79.890 Hormone replacement therapy; Z79.84 Long term (current) use of oral hypoglycemic drugs; Z79.899 Other long term (current) drug therapy; Z86.16 Personal history of COVID-19; Z90.49 Acquired absence of other specified parts of digestive tract; Z90.710 Acquired absence of both cervix and uterus; Z68.32 Body mass index [BMI] 32.0-32.9, adult
CPT/HCPCS: 36415; 80048; 85025; 96374; 96375; 99285; J1939; J3010

== ENCOUNTER 2024-09-10 22:07 | Emergency (ER) | payer MEDICARE, MEDICAID ==
[2024-09-10 22:28] VITALS: PULSE 89
[2024-09-10] MEDS: Ondansetron 4 MG Tab.DIS PO ONE (22:41)
[2024-09-10 22:51] LABS: BASOPHILS ABSOLUTE AUTO 0.08 K/uL (0.00-0.10); BASOPHILS PERCENT AUTO 0.8 % (0.1-1.3); EOSINOPHILS ABSOLUTE AUTO 0.31 K/uL (0.00-0.40); EOSINOPHILS PERCENT AUTO 3.3 % (0.0-5.4); HEMATOCRIT 40.2 % (34.3-46.0); HEMOGLOBIN 12.8 g/dL (11.2-15.5); IMMATURE GRAN ABSOLUTE AUTO 0.03 K/uL (0.00-0.23); IMMATURE GRAN PERCENT AUTO 0.3 % (0.0-0.7); LYMPHOCYTES PERCENT AUTO 15.8 % (11.4-47.7); MEAN CORPUSCULAR HEMOGLOBIN 26.3 pg (31.6-35.5); MEAN CORPUSCULAR HGB CONC 31.8 g/dL (31.6-35.5); MEAN CORPUSCULAR VOLUME 82.7 fL (81.4-99.0); MONOCYTES ABSOLUTE AUTO 0.75 K/uL (0.20-0.90); MONOCYTES PERCENT AUTO 7.9 % (3.3-12.6); NEUTROPHILS ABSOLUTE AUTO 6.83 K/uL (1.0-7.6); NEUTROPHILS PERCENT AUTO 71.9 % (40.0-78.1); PLATELET COUNT,PLT 262 K/uL (130-375); RED BLOOD CELL COUNT 4.86 M/uL (3.77-5.24); WHITE BLOOD CELL COUNT,WBC 9.5 K/uL (3.2-11.0)
[2024-09-10 23:16] LABS: A/G RATIO 1.1 (1.2-2.2); ALANINE AMINOTRANSFERASE,ALT 98 U/L (12-78); ALBUMIN 3.6 g/dL (3.4-5.0); ALKALINE PHOSPHATASE 96 U/L (46-116); ASPARTATE AMNIOTRANSFERASE,AST 60 U/L (15-37); BILIRUBIN TOTAL 1.2 mg/dL (0.2-1.0); BLOOD UREA NITROGEN,BUN 40 mg/dL (7-18); CALCIUM 9.5 mg/dL (8.5-10.1); CARBON DIOXIDE,CO2 26 mmol/L (21-32); CHLORIDE,CL 97 mmol/L (100-108); CREATININE 1.3 mg/dL (0.6-1.0); EST CRCL DRUG DOSING (CG) 35.16 mL/min; ESTIMATED GFR 47 mL/min (>60); GLUCOSE RANDOM 101 mg/dL (74-106); PROTEIN TOTAL,TP 6.8 g/dL (6.4-8.2); SODIUM,NA 134 mmol/L (140-148); TROPONIN I HIGH SENSITIVITY 38.5 pg/mL (<=60.3)
[2024-09-10 23:44] VITALS: BP 109/72
== END 2024-09-10 23:53 | disposition home or self-care (01) ==
LOC: JP.ED 22:07
DX: I11.0 Hypertensive heart disease with heart failure (principal); I50.22 Chronic systolic (congestive) heart failure; E78.00 Pure hypercholesterolemia, unspecified; J45.909 Unspecified asthma, uncomplicated; E66.9 Obesity, unspecified; E03.9 Hypothyroidism, unspecified; Z86.16 Personal history of COVID-19; Z90.49 Acquired absence of other specified parts of digestive tract; Z90.710 Acquired absence of both cervix and uterus; Z79.899 Other long term (current) drug therapy; Z79.890 Hormone replacement therapy; Z79.84 Long term (current) use of oral hypoglycemic drugs; Z88.8 Allergy status to other drugs, medicaments and biological substances; Z88.5 Allergy status to narcotic agent; Z91.010 Allergy to peanuts
CPT/HCPCS: 36415; 80053; 83880; 84484; 85025; 93005; 99285; Q0162; 93010; 99284

== ENCOUNTER 2024-09-24 06:49 | Emergency (ER) | payer MEDICARE, MEDICAID ==
[2024-09-24 08:45] LABS: BASOPHILS ABSOLUTE AUTO 0.07 K/uL (0.00-0.10); BASOPHILS PERCENT AUTO 0.6 % (0.1-1.3); EOSINOPHILS ABSOLUTE AUTO 0.04 K/uL (0.00-0.40); EOSINOPHILS PERCENT AUTO 0.4 % (0.0-5.4); HEMATOCRIT 41.7 % (34.3-46.0); HEMOGLOBIN 13.1 g/dL (11.2-15.5); IMMATURE GRAN ABSOLUTE AUTO 0.05 K/uL (0.00-0.23); IMMATURE GRAN PERCENT AUTO 0.5 % (0.0-0.7); LYMPHOCYTES ABSOLUTE AUTO 1.37 K/uL (0.8-3.3); LYMPHOCYTES PERCENT AUTO 12.5 % (11.4-47.7); MEAN CORPUSCULAR HEMOGLOBIN 25.7 pg (31.6-35.5); MEAN CORPUSCULAR HGB CONC 31.4 g/dL (31.6-35.5); MEAN CORPUSCULAR VOLUME 81.8 fL (81.4-99.0); MONOCYTES ABSOLUTE AUTO 0.65 K/uL (0.20-0.90); MONOCYTES PERCENT AUTO 5.9 % (3.3-12.6); NEUTROPHILS ABSOLUTE AUTO 8.77 K/uL (1.0-7.6); NEUTROPHILS PERCENT AUTO 80.1 % (40.0-78.1); PLATELET COUNT,PLT 273 K/uL (130-375)
[2024-09-24 09:00] LABS: ANION GAP 16.2 mmol/L (5.0-14.0); CREATININE 1.2 mg/dL (0.6-1.0); EST CRCL DRUG DOSING (CG) 38.09 mL/min; POTASSIUM,K 5.2 mmol/L (3.6-5.2)
[2024-09-24 09:22] LABS: CALCIUM 9.3 mg/dL (8.5-10.1)
[2024-09-24] MEDS: Metolazone 2.5 MG Tab PO ONE (09:25)
[2024-09-24 09:33] VITALS: BP 92/59; PULSE 83
== END 2024-09-24 09:32 | disposition home or self-care (01) ==
LOC: JP.ED 06:49
DX: I11.0 Hypertensive heart disease with heart failure (principal); I50.42 Chronic combined systolic (congestive) and diastolic (congestive) heart failure; E11.9 Type 2 diabetes mellitus without complications; E66.9 Obesity, unspecified; E03.9 Hypothyroidism, unspecified; E78.00 Pure hypercholesterolemia, unspecified; J45.909 Unspecified asthma, uncomplicated; Z88.8 Allergy status to other drugs, medicaments and biological substances; Z91.040 Latex allergy status; Z88.5 Allergy status to narcotic agent; Z79.899 Other long term (current) drug therapy; Z79.890 Hormone replacement therapy; Z79.84 Long term (current) use of oral hypoglycemic drugs; Z79.51 Long term (current) use of inhaled steroids; Z86.16 Personal history of COVID-19; Z90.710 Acquired absence of both cervix and uterus; Z90.49 Acquired absence of other specified parts of digestive tract; Z68.34 Body mass index [BMI] 34.0-34.9, adult
CPT/HCPCS: 36415; 71046; 80048; 85025; 99285; A9270